=== PATIENT | female | born 1940 | race Caucasian/White ===

== ENCOUNTER 2018-05-16 15:45 | Observation (INO) ==
[2018-05-16] MEDS ORDERED: Famotidine 20 MG/2 ML VIAL IVP ONE (17:29)
[2018-05-16] MEDS ORDERED: methylPREDNISolone 125 MG/2 ML VIAL IVP ONE (17:29)
--- NOTE | 2018-05-16 17:33 | Emergency Department Note ---
Disposition Clinical Impression: Rash Allergic reaction Qualifiers: Encounter type: initial encounter Qualified Code(s): T78.40XA - Allergy, unspecified, initial encounter Disposition: Admitted As Inpatient Condition: Fair Referrals: Jamila Betts CNP [Primary Care Provider] - Forms: ED Satisfaction Letter Time of Disposition: 18:07 Allergic Reaction HPI - General Chief complaint: ED Allergic Reaction Stated complaint: "red all over, reaction to diflucan 150mg" Time Seen by Provider: 05/16/18 17:21 Source: patient, family Mode of arrival: wheelchair Limitations: physical limitation Nursing Notes Reviewed: Yes Vital Signs Reviewed: Yes - History of Present Illness HPI Narrative: The patient is a limited historian. She was sent from the wound care clinic due to a rash. The patient is uncertain how long the rash was present. She notes it is mildly pruritic. Not painful. The only known new exposures are to Diflucan and she is uncertain how may doses she received. She is getting treatment the wound care clinic for chronic lower extremity lesions Pt Subjective Complaint: allergic reaction Onset (ago): hour(s) Exposure: medication Symptoms: Reports: rash, itching Severity: severe Treatment prior to arrival: none Previous Allergic Reaction History: none - Related Data Home Medications Medication Instructions Recorded Confirmed Adult Multivitamin Gummies 08/11/15 08/11/15 Aspirin 81 mg PO DAILY 08/11/15 08/11/15 Lasix 40 mg PO BID 08/11/15 08/11/15 Moexipril-Hctz 7.5-12.5 mg Tab 7.5 mg PO DAILY 08/11/15 08/11/15 Neurontin 300 mg PO BID 08/11/15 08/11/15 Potassium Chloride 20 meq PO DAILY 08/11/15 08/11/15 Simvastatin 10 mg PO DAILY 08/11/15 08/11/15 Synthroid 0.175 mg PO DAILY 08/11/15 08/11/15 Ciprofloxacin HCl [Cipro] 500 mg PO BID 05/16/18 05/16/18 Allergies Allergy/AdvReac Type Severity Reaction Status Date / Time Sulfa (Sulfonamide Allergy Rash Verified 05/16/18 15:54 Antibiotics) All systems ED: reviewed and negative except as stated. Constitutional: Reports: as per HPI Eyes: Reports: as per HPI ENT ED: Reports: as per HPI Cardiovascular: Reports: as per HPI Respiratory: Reports: as per HPI Gastrointestinal: Reports: as per HPI Genitourinary: Reports: as per HPI Musculoskeletal: Reports: as per HPI Integumentary: Reports: rash Neurological: Reports: as per HPI Psychiatric: Reports: as per HPI Endocrine: Reports: as per HPI Hematological/Lymphatic: Reports: as per HPI Allergic/Immunologic: Reports: as per HPI Past Medical History - Past Medical History Source: patient Medical history: Reports: hypertension, thyroid disease Surgical history: Reports: cancer surgery Psychiatric history: Reports: anxiety, depression - Social History Smoking Status: Unknown if ever smoked Alcohol use: Reports: none Drug use: Reports: unknown Physical Exam - General Limitations: physical limitation (Required 2 person assistance to transfer from the wheelchair to the examination stretcher) General appearance: alert - Head Head exam: atraumatic - Eye Eye exam: Present: normal appearance - ENT ENT exam: normal exam, other (No stridor or oropharyngeal swelling) - Neck Neck exam: Present: normal inspection, full ROM - Chest Chest inspection: Present: normal inspection, symmetric chest wall rise - Respiratory Respiratory exam: Present: normal lung sounds bilaterally - Cardiovascular Cardiovascular exam: Present: irregular rhythm, normal heart sounds - Abdominal Exam Abdominal exam: Present: soft, other (Obese) - Rectal Exam Rectal exam: Present: deferred - Extremities Exam Extremities exam: Present: other (Bilateral lower extremities with circumferential wraps. Postop shoes in place) - Neurological Exam Neurological exam: Present: alert, oriented X3, CN II-XII intact - Psychiatric Psychiatric exam: Present: normal affect, normal mood - Skin Skin exam: Present: warm, dry, other (Diffuse slightly raised erythematous lesions to her inframamillary regions, torso, back. No wheals. Lesions cross the midline and are not in a dermatomal distribution. No evidence of cellulitis ) Course Course Narrative: Patient presents with a diffuse erythematous rash. I am uncertain whether or not this represents a medication reaction and if so to what medication. I will treat symptomatically with antihistamines, H2 blockers and a dose of Solu- Medrol. - Reevaluation(s) Reevaluation #1: Etiology of rash in completely certain. This may represent a fungal dermatitis or an allergic medication reaction. Given the extensive nature of the rash I will request admission to the medicine team for further observation and evaluation Vital Signs Temperature 98.0 F 05/16/18 15:51 Pulse Rate 92 05/16/18 15:51 Respiratory Rate 18 05/16/18 15:51 Blood Pressure 115/71 05/16/18 15:51 O2 Sat by Pulse Oximetry 91 05/16/18 15:51 Temperature 98.0 F 05/16/18 17:28 Pulse Rate 81 05/16/18 17:32 Respiratory Rate 24 05/16/18 17:32 Blood Pressure 133/57 05/16/18 17:32 O2 Sat by Pulse Oximetry 98 05/16/18 17:32 Oxygen Delivery Oxygen Delivery Room Air Allergic Reaction - Lab Data Lab results reviewed: Yes I reviewed the patient's lab results. Result diagrams: 05/16/18 17:29 Lab Results 05/16/18 05/16/18 Range/Units 17:29 17:29 WBC 14.4 H (4.3-11.1) K/mcL RBC 4.00 (3.82-4.97) M/mcL Hgb 12.7 (11.5-15.4) g/dL Hct 39.1 (35.3-44.9) % MCV 97.8 (83.0-100.0) fL MCH 31.8 (28.0-33.3) pg MCHC 32.5 (31.6-35.5) g/dL RDW 12.6 (11.5-14.5) % Plt Count 215 (140-400) K/mcL MPV 10.1 (9.4-12.4) fL Immature Gran % 0.3 (0-4) % Seg Neutrophils % 81.5 % Lymphocytes % 8.6 % Monocytes % 8.3 % Eosinophils % 1.2 % Basophils % 0.1 % Neutrophils # 11.7 H (1.6-8.9) K/mcL Lymphocytes # 1.2 (0.6-4.6) K/mcL Monocytes # 1.2 (0.0-1.3) K/mcL Eosinophils # 0.2 (0.0-0.6) K/mcL Basophils # 0.0 (0.0-0.2) K/mcL ESR 107 H (0-15) mm/hr
[2018-05-16 17:54] LABS: Basophils % 0.1 %; Eosinophils # 0.2 K/mcL (0.0-0.6); Eosinophils % 1.2 %; Hematocrit 39.1 % (35.3-44.9); Hemoglobin 12.7 g/dL (11.5-15.4); Immature Granulocytes % 0.3 % (0-4); Lymphocytes # 1.2 K/mcL (0.6-4.6); Lymphocytes % 8.6 %; Mean Corpuscular HGB Conc 32.5 g/dL (31.6-35.5); Mean Corpuscular Hemoglobin 31.8 pg (28.0-33.3); Mean Corpuscular Volume 97.8 fL (83.0-100.0); Mean Platelet Volume 10.1 fL (9.4-12.4); Monocytes # 1.2 K/mcL (0.0-1.3); Monocytes % 8.3 %; Neutrophils # 11.7 K/mcL (1.6-8.9); Platelet Count 215 K/mcL (140-400); Red Cell Distribution Width 12.6 % (11.5-14.5); Segmented Neutrophils % 81.5 %
[2018-05-16 18:14] LABS: Alanine Aminotransferase 113 Units/L (7-52); Albumin 3.4 g/dL (3.5-5.7); Albumin/Globulin Ratio 0.8 (1.1-2.2); Alkaline Phosphatase 140 Units/L (34-104); Aspartate Amino Transferase 80 Units/L (13-39); BUN/Creatinine Ratio 25 (6-26); Bilirubin,Total 0.6 mg/dL (0.3-1.0); Blood Urea Nitrogen 26 mg/dL (8-23); C-Reactive Protein 55 mg/L (Less than 10); Calcium 8.6 mg/dL (8.6-10.3); Carbon Dioxide 29 mEq/L (23-29); Chloride 99 mEq/L (98-107); Globulin 4.1 g/dL (2.4-3.5); Glucose 123 mg/dL (70-105); Osmolality,Calculated 288 (280-300); Potassium 4.3 mEq/L (3.5-5.1); Sodium 136 mEq/L (136-145); Total Protein 7.5 g/dL (6.4-8.9); eGFR For African Americans > 60 (> 60); eGFR For Non-African Americans 52 (> 60)
--- NOTE | 2018-05-16 19:48 | Internal Med History&Physical ---
Date of Encounter: 05/16/18 Time of Encounter: 22:10 Internal Medicine - H&P: HPI Chief complaint: rash Admitted From: Home Plans for Post Hospital Care: Home History of present illness: Ms. Meyers is a 77 year old female with PMHx as below presented from the wound clinic due to rash. Unsure of duration or onset but she states that they are itch. No pain. The only new meds that she has had recently was diflucan but she is not sure of the timing of diflucan ingestion and onset of rash. She has chronic R ankle ulcers and LE venous stasis ulcers which are being taken care by the wound clinic. Patient states that she has been noticing increasing drainage from both ulcers. No pain or worsening swelling. No bone exposure to her best knowledge. Denies fever but intermittent chills. She had them cleaned today and is scheduled for dressing change on Tuesday. She was afebrile, hemodynamically stable on presentation. Her initial investigation showed leukocytosis, elevated CRP and ESR, Cr 1.03 (baseline around 0.88), and mildly deranged transaminases/ALP. She is admitted to observation for further management. Past Med Surg Social Fam HX - Past Medical History Medical history: hyperlipidemia, hypertension, thyroid disease Additional medical history: OBESITY, neuropathy, chronic LE edema Psychiatric history: anxiety, depression - Past Surgical History Surgical History: cancer surgery Additional surgical history: skin cancer surgery in 1997. - Social History Smoking Status: Unknown if ever smoked Smokeless Tobacco Status: No Alcohol use: none Drug use: unknown - Family History Mother Adopted: No Family Member Ethnicity: Non- Living Status: Hx Family Cardiac Disorders: Yes Hx Family Respiratory Disorders: No Hx Family Cancer: Yes Hx Family GI Disorders: No Hx Family Endocrine Disorder: No Hx Family Neuromuscular Disorders: No Hx Family Neurologic Disorders: No Hx Family HEENT Disorders: No Hx Family Autoimmune Disorders: No Father Adopted: No Family Member Ethnicity: Non- Living Status: Hx Family Cardiac Disorders: Yes Hx Family Respiratory Disorders: No Hx Family Cancer: No Hx Family GI Disorders: No Hx Family Endocrine Disorder: No Hx Family Neuromuscular Disorders: No Hx Family Neurologic Disorders: No Hx Family HEENT Disorders: No Hx Family Autoimmune Disorders: No Internal Medicine - H&P: Meds Aspirin Enteric Coated [Aspirin EC] 81 mg PO DAILY 05/16/18 [History] Cholecalciferol (D-3) [Vitamin D] 5,000 unit PO DAILY 05/16/18 [History] Furosemide [Lasix] 40 mg PO QPM 05/16/18 [History] Furosemide [Lasix] 80 mg PO QAM 05/16/18 [History] Gabapentin [Neurontin] 300 mg PO BID 05/16/18 [History] Levothyroxine [Synthroid] 150 mcg PO DAILY 05/16/18 [History] Moexipril HCl 7.5 mg PO DAILY 05/16/18 [History] Multivitamin [One Daily Multivitamin] 1 tab PO DAILY 05/16/18 [History] Potassium Chloride [Klor-Con 10] 10 meq PO BID 05/16/18 [History] Simvastatin [Zocor] 20 mg PO HS 05/16/18 [History] 3 Allergy/AdvReac Type Severity Reaction Status Date / Time Sulfa (Sulfonamide Allergy Rash Verified 05/16/18 18:35 Antibiotics) All Systems PM: A 10-system review of systems was performed and is negative for pertinent findings except as documented above in the HPI. - Constitutional Vitals: Temp Pulse Resp BP Pulse Ox 98.0 F 81 22 129/62 98 05/16/18 17:28 05/16/18 17:32 05/16/18 18:58 05/16/18 18:58 05/16/18 17:32 Exam: General: Alert and oriented HEENT:EOM, pupils equal, round, and reactive. Cardiovascular:Normal S1 & S2, no murmurs or gallops. No JVD. Pulse regular. Lungs:Normal breath sounds, no wheezes or crackles. Abdomen:Soft, non-tender, no rigidity. Extremities:Both LE wrapped in dressing, dry and clean, R leg slightly warmer than the left. No tenderness or crepitus on palpation. Neurological:Normal cognition and motor skills. Skin: Diffuse, confluent erythematous lesions mainly on the trunk. Pulses:Carotid and radial pulses normal +2. Rest of the physical exam is non-contributory Internal Med - H&P Results - Labs CBC & Chem 7: 05/16/18 17:29 05/16/18 17:29 - Assessment and plan (1) Rash Current Visit: Yes Status: Acute Assessment and plan: ?drug reaction to diflucan Given IV solumedrol, benadryl in the ED Benadryl PRN Monitor (2) Pressure ulcer of right ankle, unstageable Current Visit: No Status: Acute Assessment and plan: According to the patient and wound care clinic notes, it appears that at least her R ankle wounds are getting larger with large amount of drainage Patient now has new leukocytosis with elevated inflammatory markers ? osteomyelitis No evidence of cellulitis, will hold off on abx till XR R foot and ankle is done. IF negative, may need to consider CT or MRI to rule out OM Dressing change due on Tuesday (3) Acute kidney injury Current Visit: Yes Status: Acute Assessment and plan: very mild elevation of Cr (1.03 today) from baseline of 0.88 1L NS today and monitor Cr hold off on lasix and moexipril for now (4) Elevated liver enzymes Current Visit: Yes Status: Acute Assessment and plan: Was normal previously, ?fatty liver related Has concerning R ankle wounds, will check CPK which can also cause elevated AST/ ALT repeat CMP in the AM (5) Hypertension Current Visit: Yes Status: Chronic Assessment and plan: ?mild LUBNA hold off on moexipril for now Qualifiers: Hypertension type: essential hypertension Qualified Code(s): I10 - Essential (primary) hypertension (6) Hypothyroidism Current Visit: Yes Status: Chronic Assessment and plan: continue levothyroxine Qualifiers: Hypothyroidism type: unspecified Qualified Code(s): E03.9 - Hypothyroidism , unspecified - Time Spent With Patient Total time spent is greater than 50% in coordination of care (as documented) at patient's floor/unit and/or counseling patient:
[2018-05-16] MEDS ORDERED: Naloxone 0.4 MG/ML INJ IVP PRN (22:19)
[2018-05-16] MEDS ORDERED: 0.9 % Sodium Chloride 1,000 ML IVC SCH (22:30)
[2018-05-16 22:53] LABS: Creatine Kinase 691 Units/L (30-223)
[2018-05-17 06:46] LABS: Basophils % 0.1 %; Hematocrit 34.8 % (35.3-44.9); Hemoglobin 11.1 g/dL (11.5-15.4); Immature Granulocytes % 0.3 % (0-4); Lymphocytes # 0.6 K/mcL (0.6-4.6); Lymphocytes % 6.2 %; Mean Corpuscular HGB Conc 31.9 g/dL (31.6-35.5); Mean Corpuscular Hemoglobin 30.7 pg (28.0-33.3); Mean Corpuscular Volume 96.4 fL (83.0-100.0); Mean Platelet Volume 10.2 fL (9.4-12.4); Monocytes # 0.2 K/mcL (0.0-1.3); Monocytes % 1.6 %; Neutrophils # 9.3 K/mcL (1.6-8.9); Platelet Count 196 K/mcL (140-400); Red Blood Count 3.61 M/mcL (3.82-4.97); Red Cell Distribution Width 12.6 % (11.5-14.5); Segmented Neutrophils % 91.8 %
[2018-05-17 07:07] LABS: Alanine Aminotransferase 79 Units/L (7-52); Albumin 2.9 g/dL (3.5-5.7); Albumin/Globulin Ratio 0.8 (1.1-2.2); Alkaline Phosphatase 109 Units/L (34-104); Aspartate Amino Transferase 45 Units/L (13-39); BUN/Creatinine Ratio 30 (6-26); Bilirubin,Total 0.4 mg/dL (0.3-1.0); Blood Urea Nitrogen 23 mg/dL (8-23); Calcium 8.3 mg/dL (8.6-10.3); Carbon Dioxide 28 mEq/L (23-29); Chloride 104 mEq/L (98-107); Globulin 3.6 g/dL (2.4-3.5); Glucose 166 mg/dL (70-105); Osmolality,Calculated 291 (280-300); Potassium 4.7 mEq/L (3.5-5.1); Sodium 137 mEq/L (136-145); Total Protein 6.5 g/dL (6.4-8.9); eGFR For African Americans > 60 (> 60); eGFR For Non-African Americans > 60 (> 60)
[2018-05-17] MEDS: Gabapentin 300 MG CAPSULE PO SCH ×2 (08:45→20:13)
[2018-05-17] MEDS: Aspirin Enteric Coated 81 MG Tablet PO SCH (08:45)
[2018-05-17] MEDS: Multivit/Ca/Min/Fe/FA 1 TAB TABLET PO SCH (08:45)
[2018-05-17] MEDS: Cholecalciferol (D-3) 1,000 UNIT TABLET PO SCH (08:45)
[2018-05-17] MEDS ORDERED: Furosemide 40 MG TABLET PO SCH ×2 (09:00→18:00)
--- NOTE | 2018-05-17 14:37 | Internal Med Progress Note ---
Date of Encounter: 05/17/18 Time of Encounter: 11:20 - Assessment and plan (1) DVT prophylaxis Current Visit: Yes Status: Acute Assessment and plan: heparin SQ (2) Acute kidney injury Current Visit: Yes Status: Acute Assessment and plan: Resolved. Renal function has returned to baseline. (3) Allergic reaction Current Visit: Yes Status: Acute Assessment and plan: Pt with diffuse red, flat rash to trunk, some yeast appearing areas under breasts. Pt states that she has had the rash for 2 months, which predates the start of Diflucan, that was suspected to cause the rash. Pt states that the rash itches and peres "sometimes". Nystatin powder under breasts, diflucan has been stopped. Benadryl IV prn itching Will monitor, may have consult dermatology if not improved. Qualifiers: Encounter type: initial encounter Qualified Code(s): T78.40XA - Allergy, unspecified, initial encounter (4) Elevated liver enzymes Current Visit: Yes Status: Acute Assessment and plan: Improving. Suspected related to fatty liver. Continue to monitor. Pt denies abdominal pain, n/v/d. (5) Pressure ulcer of right ankle, unstageable Current Visit: Yes Status: Acute Assessment and plan: Chronic wound . Pt sees wound care twice daily. Xrays unremarkable, no underlying oseous destruction to suggest osteomyelitis. Leukocytosis has resolved and pt has no fever, tachycardia, or hypotension. MOnitor labs and continue to follow with wound care for dressing changes. Ankle X-Ray 05/16/18 22:29 IMPRESSION: Limited exams due to bandage material outside the patient which obscures fine osseous and soft tissue detail. Consider repeating exams after removal of material. Suspect soft tissue irregularity/ ulceration along the great toe. No underlying osseous destruction to suggest osteomyelitis. D/ / Leonel Tirado / Leonel Tirado Interpreting Provider: Leonel Tirado Foot X-Ray 05/16/18 22:29 IMPRESSION: Limited exams due to bandage material outside the patient which obscures fine osseous and soft tissue detail. Consider repeating exams after removal of material. Suspect soft tissue irregularity/ ulceration along the great toe. No underlying osseous destruction to suggest osteomyelitis. D/ / Leonel Tirado / Leonel Tirado Interpreting Provider: Leonel Tirado (6) Rash Current Visit: Yes Status: Acute Assessment and plan: Pt with flat red rash to chest and trunk. Reports some itching and some burning. Onset approximately 2 months ago. Pt was placed on Diflucan about 1 month ago, it is thought that the rash was started by Diflucan, which has been stopped. Nystatin powder to area TID. If not improving, will consider dermatology consultation. (7) Hypertension Current Visit: Yes Status: Chronic Assessment and plan: Well controlled. Continue home medications. Qualifiers: Hypertension type: essential hypertension Qualified Code(s): I10 - Essential (primary) hypertension (8) Hypothyroidism Current Visit: Yes Status: Chronic Assessment and plan: Chronic. Continue home medications. Qualifiers: Hypothyroidism type: unspecified Qualified Code(s): E03.9 - Hypothyroidism , unspecified - Time Spent With Patient Total time spent is greater than 50% in coordination of care (as documented) at patient's floor/unit and/or counseling patient: less than 15 minutes - Subjective Interval history: Patient was seen and assessed at bedside at 11:20 AM. Patient reports that she is having her rash for approximately 2 months, today she reports that it is actually longer than that time that she has been taking the drug that is believed to have caused the rash. Patient states that the rash sometimes itches sometimes peres. Patient reports that she currently sees wound care 2 times a week for her right ankle with. Pt states that she is feeling better and denies nausea, vomiting, diarrhea, fever, chills, chest pain, SOB. - Constitutional Vitals: Temp Pulse Resp BP Pulse Ox 98.0 F 63 16 107/52 93 05/17/18 11:26 05/17/18 11:26 05/17/18 11:26 05/17/18 11:26 05/17/18 11:26 General appearance: Present: cooperative, morbidly obese, pleasant, no acute distress, answers questions appropriately - Head Head exam: Present: atraumatic, normal inspection, normocephalic - Eye Eye exam: Present: normal appearance, conjuntiva pink, sclera anicteric - Neck Neck exam general surgery: Present: supple, trachea midline. Absent: lymphadenopathy, tenderness - Respiratory Respiratory exam: Present: CTAB. Absent: accessory muscle use, chest wall tenderness, rales, respiratory distress, rhonchi, wheezes - Cardiovascular Cardiovascular exam: Present: RRR, +S1, +S2. Absent: diastolic murmur, gallop, rubs, systolic murmur - GI/Abdominal GI/Abdominal exam: Present: normal bowel sounds, soft. Absent: distended, hepatomegaly, tenderness - Extremities Exam Extremities exam: Present: normal capillary refill, normal inspection, warm, radial pulses palpable and symmetrical. Absent: calf tenderness, cyanotic, pedal edema, tenderness - Neurological Exam Neurological exam: Present: alert, oriented X3, no focal deficits. Absent: facial droop, speech deficit - Skin Skin exam: Present: dry, intact, normal color, warm. Absent: rash Internal Medicine: Result - Labs CBC & Chem 7: 05/17/18 06:15 05/17/18 06:15 Labs: Short CBC 05/17/18 Range/Units 06:15 WBC 10.1 (4.3-11.1) K/mcL Hgb 11.1 L D (11.5-15.4) g/dL Hct 34.8 L (35.3-44.9) % Plt Count 196 (140-400) K/mcL Neutrophils # 9.3 H (1.6-8.9) K/mcL BMP 05/17/18 06:15 Sodium 137 Potassium 4.7 Chloride 104 Carbon Dioxide 28 BUN 23 Creatinine 0.77 Glucose 166 H Calcium 8.3 L Liver Function 05/17/18 Range/Units 06:15 Total Bilirubin 0.4 (0.3-1.0) mg/dL AST 45 H (13-39) Units/L ALT 79 H (7-52) Units/L Alkaline Phosphatase 109 H (34-104) Units/L Albumin 2.9 L (3.5-5.7) g/dL - Impressions Impressions Ankle X-Ray 05/16/18 22:29 IMPRESSION: Limited exams due to bandage material outside the patient which obscures fine osseous and soft tissue detail. Consider repeating exams after removal of material. Suspect soft tissue irregularity/ ulceration along the great toe. No underlying osseous destruction to suggest osteomyelitis. D/ / Leonel Tirado / Leonel Tirado Interpreting Provider: Leonel Tirado Foot X-Ray 05/16/18 22:29 IMPRESSION: Limited exams due to bandage material outside the patient which obscures fine osseous and soft tissue detail. Consider repeating exams after removal of material. Suspect soft tissue irregularity/ ulceration along the great toe. No underlying osseous destruction to suggest osteomyelitis. D/ / Leonel Tirado / Leonel Tirado Interpreting Provider: Leonel Tirado Consult Discharge Plan - Plan Referrals: Jamila Betts HAT CHECKER [Primary Care Provider] -
[2018-05-17] MEDS: Nystatin POWDER 30 GM BOTTLE TP SCH ×2 (15:22→20:13)
[2018-05-17] MEDS: *HR* Heparin 5,000 UNIT/ML VIAL SQ SCH (17:16)
[2018-05-18 04:13] LABS: Basophils % 0.2 %; Eosinophils # 0.1 K/mcL (0.0-0.6); Eosinophils % 0.6 %; Hematocrit 32.5 % (35.3-44.9); Hemoglobin 10.1 g/dL (11.5-15.4); Immature Granulocytes % 0.4 % (0-4); Lymphocytes % 9.4 %; Mean Corpuscular HGB Conc 31.1 g/dL (31.6-35.5); Mean Corpuscular Hemoglobin 30.6 pg (28.0-33.3); Mean Corpuscular Volume 98.5 fL (83.0-100.0); Mean Platelet Volume 10.3 fL (9.4-12.4); Monocytes # 1.1 K/mcL (0.0-1.3); Monocytes % 10.2 %; Neutrophils # 8.8 K/mcL (1.6-8.9); Platelet Count 203 K/mcL (140-400); Red Cell Distribution Width 12.7 % (11.5-14.5); Segmented Neutrophils % 79.2 %
[2018-05-18 04:32] LABS: BUN/Creatinine Ratio 37 (6-26); Blood Urea Nitrogen 32 mg/dL (8-23); Calcium 8.3 mg/dL (8.6-10.3); Carbon Dioxide 28 mEq/L (23-29); Chloride 103 mEq/L (98-107); Glucose 111 mg/dL (70-105); Osmolality,Calculated 292 (280-300); Potassium 4.6 mEq/L (3.5-5.1); Sodium 137 mEq/L (136-145); eGFR For African Americans > 60 (> 60); eGFR For Non-African Americans > 60 (> 60)
[2018-05-18] MEDS: *HR* Heparin 5,000 UNIT/ML VIAL SQ SCH ×2 (06:04→18:07)
[2018-05-18] MEDS: Nystatin POWDER 30 GM BOTTLE TP SCH ×3 (10:26→20:06)
[2018-05-18] MEDS: Aspirin Enteric Coated 81 MG Tablet PO SCH (10:26)
[2018-05-18] MEDS: Gabapentin 300 MG CAPSULE PO SCH ×2 (10:26→20:06)
[2018-05-18] MEDS: Cholecalciferol (D-3) 1,000 UNIT TABLET PO SCH (10:26)
[2018-05-18] MEDS: Multivit/Ca/Min/Fe/FA 1 TAB TABLET PO SCH (10:26)
[2018-05-18] MEDS: 0.9 % Sodium Chloride 1,000 ML IVC SCH (12:45)
[2018-05-18 14:06] LABS: Alanine Aminotransferase 57 Units/L (7-52); Aspartate Amino Transferase 30 Units/L (13-39); Creatine Kinase 117 Units/L (30-223)
--- NOTE | 2018-05-18 17:34 | Internal Med Progress Note ---
Date of Encounter: 05/18/18 Time of Encounter: 10:50 - Assessment and plan (1) DVT prophylaxis Current Visit: Yes Status: Acute Assessment and plan: heparin SQ BID (2) Acute kidney injury Current Visit: Yes Status: Acute Assessment and plan: Resolved. (3) Allergic reaction Current Visit: Yes Status: Suspected Assessment and plan: Suspected non-allergic reaction, suspected actually increased. Rash is almost gone after 2 applications of nystatin powder. Patient reports that itching and burning has resolved. Patient will be sent home with nystatin. Qualifiers: Encounter type: initial encounter Qualified Code(s): T78.40XA - Allergy, unspecified, initial encounter (4) Elevated liver enzymes Current Visit: Yes Status: Acute Assessment and plan: AST has returned to normal, ALTs mildly mildly elevated at 57. Unclear etiology for elevation on admission and then elevated CK/CRP. Patient denies abdominal pain. (5) Pressure ulcer of right ankle, unstageable Current Visit: Yes Status: Acute Assessment and plan: Chronic wound . Xrays unremarkable, no underlying oseous destruction to suggest osteomyelitis. Leukocytosis has resolved and pt has no fever, tachycardia, or hypotension. MOnitor labs and continue to follow with wound care for dressing changes. Ankle X-Ray 05/16/18 22:29 IMPRESSION: Limited exams due to bandage material outside the patient which obscures fine osseous and soft tissue detail. Consider repeating exams after removal of material. Suspect soft tissue irregularity/ ulceration along the great toe. No underlying osseous destruction to suggest osteomyelitis. D/ / Leonel Tirado / Leonel Tirado Interpreting Provider: Leonel Tirado Foot X-Ray 05/16/18 22:29 IMPRESSION: Limited exams due to bandage material outside the patient which obscures fine osseous and soft tissue detail. Consider repeating exams after removal of material. Suspect soft tissue irregularity/ ulceration along the great toe. No underlying osseous destruction to suggest osteomyelitis. D/ / Leonel Tirado / Leoenl Tirado Interpreting Provider: Leonel Tirado (6) Rash Current Visit: Yes Status: Resolved Assessment and plan: Rash has almost completely resolved with nystatin. Nystatin powder to area TID. (7) Hypertension Current Visit: Yes Status: Chronic Assessment and plan: Well controlled. Stable. Continue home medications. Qualifiers: Hypertension type: essential hypertension Qualified Code(s): I10 - Essential (primary) hypertension (8) Hypothyroidism Current Visit: Yes Status: Chronic Assessment and plan: Chronic. Continue home medications. Qualifiers: Hypothyroidism type: unspecified Qualified Code(s): E03.9 - Hypothyroidism , unspecified (9) Sacral decubitus ulcer Current Visit: Yes Status: Acute Assessment and plan: Patient with sacral decubitus ulcers present prior to admission. Patient refused to allow nursing to evaluate them today. Wound care has been consulted, evaluation pending. I appreciate their recommendations. Qualifiers: Pressure ulcer stage: unspecified pressure ulcer stage Qualified Code(s): L89.159 - Pressure ulcer of sacral region, unspecified stage - Time Spent With Patient Total time spent is greater than 50% in coordination of care (as documented) at patient's floor/unit and/or counseling patient: less than 15 minutes - Subjective Interval history: Patient was seen and assessed at bedside at 1050 AM. Pt states that she is feeling better and denies nausea, vomiting, diarrhea, fever, chills, chest pain , SOB. Pt states that she lives at home with her daughter and would like to discuss home health, pt also will need wound care to evaluate her sacral/coccyx ulcers that she has had since prior to arrival. Pt will stay overnight again to wait for wound care and PT/OT. - Constitutional Vitals: Temp Pulse Resp BP Pulse Ox 98.5 F 84 18 104/57 98 05/18/18 15:35 05/18/18 15:35 05/18/18 15:35 05/18/18 15:35 05/18/18 15:35 General appearance: Present: cooperative, morbidly obese, pleasant, no acute distress, answers questions appropriately - Head Head exam: Present: atraumatic, normal inspection, normocephalic - Eye Eye exam: Present: normal appearance, conjuntiva pink, sclera anicteric - Neck Neck exam general surgery: Present: supple, trachea midline. Absent: lymphadenopathy, tenderness - Respiratory Respiratory exam: Present: CTAB. Absent: accessory muscle use, chest wall tenderness, rales, respiratory distress, rhonchi, wheezes - Cardiovascular Cardiovascular exam: Present: RRR, +S1, +S2. Absent: diastolic murmur, gallop, rubs, systolic murmur - GI/Abdominal GI/Abdominal exam: Present: normal bowel sounds, soft. Absent: distended, hepatomegaly, tenderness - Extremities Exam Extremities exam: Present: normal capillary refill, normal inspection, warm, radial pulses palpable and symmetrical. Absent: calf tenderness, cyanotic, pedal edema, tenderness - Neurological Exam Neurological exam: Present: alert, oriented X3, no focal deficits. Absent: facial droop, speech deficit - Skin Skin exam: Present: dry, intact, normal color, warm. Absent: rash Internal Medicine: Result - Labs CBC & Chem 7: 05/18/18 03:36 05/18/18 03:36 Labs: Short CBC 05/18/18 Range/Units 03:36 WBC 11.1 (4.3-11.1) K/mcL Hgb 10.1 L (11.5-15.4) g/dL Hct 32.5 L (35.3-44.9) % Plt Count 203 (140-400) K/mcL Neutrophils # 8.8 (1.6-8.9) K/mcL BMP 05/18/18 03:36 Sodium 137 Potassium 4.6 Chloride 103 Carbon Dioxide 28 BUN 32 H Creatinine 0.87 Glucose 111 H Calcium 8.3 L Liver Function 05/18/18 Range/Units 13:18 AST 30 (13-39) Units/L ALT 57 H (7-52) Units/L Consult Discharge Plan - Plan Referrals: Jamila Betts CNP [Primary Care Provider] - 05/25/18 4:00 pm
[2018-05-19] MEDS: 0.9 % Sodium Chloride 1,000 ML IVC SCH (02:13)
[2018-05-19] MEDS: *HR* Heparin 5,000 UNIT/ML VIAL SQ SCH (05:58)
[2018-05-19] MEDS: Gabapentin 300 MG CAPSULE PO SCH (08:13)
[2018-05-19] MEDS: Multivit/Ca/Min/Fe/FA 1 TAB TABLET PO SCH (08:13)
[2018-05-19] MEDS: Cholecalciferol (D-3) 1,000 UNIT TABLET PO SCH (08:14)
[2018-05-19] MEDS: Aspirin Enteric Coated 81 MG Tablet PO SCH (08:14)
[2018-05-19] MEDS: Nystatin POWDER 30 GM BOTTLE TP SCH (08:14)
--- NOTE | 2018-05-19 11:00 | Discharge Summary ---
- NOTES TO OUTPATIENT PROVIDER Notes to Outpatient Provider: Continue wound care evaluations to coccys and ankle Date of Encounter: 05/19/18 Time of Encounter: 09:40 - Discharge Diagnosis (1) DVT prophylaxis Priority: Secondary Status: Acute Assessment and Plan: heparin SQ BID. Pt up to chair today (2) Acute kidney injury Priority: Secondary Status: Resolved (3) Allergic reaction Priority: Secondary Status: Suspected Assessment and Plan: Suspected allergic reaction, suspect it was actually yeast. Rash is significantly improved with addition of nystatin powder. Patient reports that itching and burning has resolved. Patient will be sent home with nystatin. Qualifiers: Encounter type: initial encounter Qualified Code(s): T78.40XA - Allergy, unspecified, initial encounter (4) Elevated liver enzymes Priority: Secondary Status: Resolved Assessment and Plan: Resolved. AST has returned to normal, ALTs mildly mildly elevated at 57. Unclear etiology for elevation on admission and then elevated CK/CRP. Patient denies abdominal pain. (5) Pressure ulcer of right ankle, unstageable Priority: Secondary Status: Acute Assessment and Plan: Chronic wound . Xrays unremarkable, no underlying oseous destruction to suggest osteomyelitis. Leukocytosis has resolved and pt has no fever, tachycardia, or hypotension. Continue current wound care visits and treatment after discharge. Ankle X-Ray 05/16/18 22:29 IMPRESSION: Limited exams due to bandage material outside the patient which obscures fine osseous and soft tissue detail. Consider repeating exams after removal of material. Suspect soft tissue irregularity/ ulceration along the great toe. No underlying osseous destruction to suggest osteomyelitis. D/ / Leonel Tirado / Leonel Tirado Interpreting Provider: Leonel Tirado Foot X-Ray 05/16/18 22:29 IMPRESSION: Limited exams due to bandage material outside the patient which obscures fine osseous and soft tissue detail. Consider repeating exams after removal of material. Suspect soft tissue irregularity/ ulceration along the great toe. No underlying osseous destruction to suggest osteomyelitis. D/ / Leonel Tirado / Leonel Tirado Interpreting Provider: Leonel Tirado (6) Rash Priority: Secondary Status: Resolved Assessment and Plan: Resolved. Continue nystatin powder and increase bathing at [facility]. (7) Hypertension Priority: Secondary Status: Chronic Assessment and Plan: Chronic. Stable. Continue home medications. Qualifiers: Hypertension type: essential hypertension Qualified Code(s): I10 - Essential (primary) hypertension (8) Hypothyroidism Priority: Secondary Status: Chronic Assessment and Plan: Chronic. Continue home medications. Qualifiers: Hypothyroidism type: unspecified Qualified Code(s): E03.9 - Hypothyroidism , unspecified (9) Decubital ulcer Priority: Secondary Status: Chronic Assessment and Plan: Pt with pressure ulcer prior to admission, pt has refused to allow nursing to evalate it. Wound care will continue at [facility], pt sees wound care clinic now. Qualifiers: Pressure injury location: sacral region Pressure injury stage: unspecified pressure injury stage Qualified Code(s): L89.159 - Pressure ulcer of sacral region, unspecified stage Hospital course: Ms. Meyers is a 77 year old female with past medical history of chronic venous stasis ulcers, chronic pressure ulcer right ankle, hypertension, hypothyroidism, morbid obesity. Patient presented to the emergency department from wound care clinic with rash. Patient reports that she has had the rash for several months, was placed on Diflucan without any resolution. She appears to be a poor historian. She has chronic right ankle ulcers and lower extremity venous stasis ulcers which she was being seen for at the wound care clinic. The patient was admitted with mild leukocytosis, elevated CRP and ESR, mildly elevated transaminases, and a mild LUBNA. Unclear etiology of the elevation of transaminases, they have returned to baseline. X-rays revealed no signs of osseous destruction to suggest osteomyelitis and her leukocytosis resolved, as well. AK I resolved with IV fluid hydration. Diflucan was stopped, nystatin powder was ordered, and rash has resolved. Patient has pre-existing ulcers to sacrum/coccyx that she has refused to allow nursing to evaluate while she has been here. Patient is to continue wound care at the [facility] as well as continue physical therapy. Patient is a resident at [facility] and will be discharged there in stable condition. Discharge discussed with: patient, family, nurse - Time Spent with Patient Total time spent providing and/or coordinating discharge services: Less than 30 minutes - Discharge Medications Home Medications: Aspirin Enteric Coated [Aspirin EC] 81 mg PO DAILY 05/16/18 [History] Cholecalciferol (D-3) [Vitamin D] 5,000 unit PO DAILY 05/16/18 [History] Furosemide [Lasix] 40 mg PO QPM 05/16/18 [History] Furosemide [Lasix] 80 mg PO QAM 05/16/18 [History] Gabapentin [Neurontin] 300 mg PO BID 05/16/18 [History] Levothyroxine [Synthroid] 150 mcg PO DAILY 05/16/18 [History] Moexipril HCl 7.5 mg PO DAILY 05/16/18 [History] Multivitamin [One Daily Multivitamin] 1 tab PO DAILY 05/16/18 [History] Potassium Chloride [Klor-Con 10] 10 meq PO BID 05/16/18 [History] Simvastatin [Zocor] 20 mg PO HS 05/16/18 [History] DiphenhydraMINE [Benadryl] 25 mg PO Q6HR PRN capsule 05/19/18 [Rx] Nystatin POWDER [Nystop] 1 appl TP TID bottle 05/19/18 [Rx] Allergies/Adverse Reactions: 3 Allergy/AdvReac Type Severity Reaction Status Date / Time Sulfa (Sulfonamide Allergy Rash Verified 05/16/18 18:35 Antibiotics) Date of admission: 05/16/18 18:39 Primary care physician: Jamila Betts CNP Consults: 05/18/18 10:01 Consult to Wound Care [CONS] Routine Reason for Consult: Pt has multiple wounds to bottom and venoud ulcers to BLE Call Completed: No 05/18/18 11:12 Consult to Physical Therapy [CONS] Routine Comment: Evaluate, develop and implement POC Reason for Consult: Discharge planning Does patient have active BEDREST order?: No Is patient medically & hemodynamically stable?: Yes Patient assessed for mobility or mobilized this visit?: No 05/18/18 11:13 Consult to Occupational Therapy [CONS] Routine Comment: Evaluate, develop and implement POC Reason for Consult: Discharge planning Does patient have active BEDREST order?: No Is patient medically & hemodynamically stable?: Yes Patient assessed for mobility or mobilized this visit?: No Consult to Material Requirements Planning Manager [CONS] Routine Reason for SW Consult: discharge planning, from [facility] Discharging clinician: Josiane Guerra Anticipated date of discharge: 05/19/18 - Constitutional Vitals: Temp Pulse Resp BP Pulse Ox 97.6 F 60 17 105/68 96 05/19/18 07:27 05/19/18 07:27 05/19/18 07:27 05/19/18 07:27 05/19/18 07:27 General appearance: Present: cooperative, morbidly obese, pleasant, no acute distress, answers questions appropriately - Head Head exam: Present: atraumatic, normal inspection, normocephalic - Eye Eye exam: Present: conjuntiva pink, sclera anicteric - Neck Neck exam general surgery: Present: supple, trachea midline. Absent: lymphadenopathy, tenderness - Respiratory Respiratory exam: Present: CTAB. Absent: accessory muscle use, chest wall tenderness, rales, rhonchi, wheezes - Cardiovascular Cardiovascular exam: Present: RRR, +S1, +S2. Absent: diastolic murmur, gallop, rubs, systolic murmur - GI/Abdominal GI/Abdominal exam: Present: normal bowel sounds, soft, no peritoneal signs. Absent: distended, hepatomegaly, tenderness - Extremities Exam Extremities exam: Present: normal capillary refill, normal inspection, warm, radial pulses palpable and symmetrical. Absent: calf tenderness, cyanotic, pedal edema, tenderness - Neurological Exam Neurological exam: Present: alert, oriented X3, no focal deficits. Absent: altered, facial droop, speech deficit - Skin Skin exam: Present: dry, intact, normal color, warm. Absent: rash - Patient Status Disposition: Transfer SNF Condition: Good Functional capacity at discharge: wheelchair bound Overall status at discharge: patient is progressing back to baseline - Discharge Instructions Follow Up With: Jamila Betts CNP [Primary Care Provider] - 05/25/18 4:00 pm - Diet and Activity Activity: as per physical therapy Diet: advance to your usual diet
[2018-05-19 11:56] VITALS: BP 103/74
--- NOTE | 2018-05-19 12:12 | Physician Discharge Referral ---
ExtendedCare Referral Info Transfer To: [facility] Provider in Charge after Transfer: PCP Institutional Level of Care: Skilled - Diagnosis (1) DVT prophylaxis Priority: Secondary Status: Acute (2) Acute kidney injury Priority: Secondary Status: Resolved (3) Allergic reaction Priority: Primary Status: Suspected (4) Elevated liver enzymes Priority: Secondary Status: Resolved (5) Pressure ulcer of right ankle, unstageable Priority: Secondary Status: Acute (6) Rash Priority: Secondary Status: Resolved (7) Hypertension Priority: Secondary Status: Chronic (8) Hypothyroidism Priority: Secondary Status: Chronic (9) Decubital ulcer Priority: Secondary Status: Chronic Prognosis: Good Aware of Diagnosis: Patient, Family - Transfer Medications Home Medications: Aspirin Enteric Coated [Aspirin EC] 81 mg PO DAILY 05/16/18 [History] Cholecalciferol (D-3) [Vitamin D] 5,000 unit PO DAILY 05/16/18 [History] Furosemide [Lasix] 40 mg PO QPM 05/16/18 [History] Furosemide [Lasix] 80 mg PO QAM 05/16/18 [History] Gabapentin [Neurontin] 300 mg PO BID 05/16/18 [History] Levothyroxine [Synthroid] 150 mcg PO DAILY 05/16/18 [History] Moexipril HCl 7.5 mg PO DAILY 05/16/18 [History] Multivitamin [One Daily Multivitamin] 1 tab PO DAILY 05/16/18 [History] Potassium Chloride [Klor-Con 10] 10 meq PO BID 05/16/18 [History] Simvastatin [Zocor] 20 mg PO HS 05/16/18 [History] DiphenhydraMINE [Benadryl] 25 mg PO Q6HR PRN capsule 05/19/18 [Rx] Nystatin POWDER [Nystop] 1 appl TP TID bottle 05/19/18 [Rx] Allergies/Adverse Reactions: 3 Allergy/AdvReac Type Severity Reaction Status Date / Time Sulfa (Sulfonamide Allergy Rash Verified 05/16/18 18:35 Antibiotics) - Respiratory Orders Smoking Cessation: Smoking cessation has been advised. For more information, call the [place] Tobacco Quit Line at 0-574-PRBH-NOW. - Ancillary Orders May use pressure relief devices daily prn, May consult with Dentist, Electronic Console Display Operator, Granite Polisher Apprentice PRN - Advance Directives Code Status: DNR-Arrest - Mobility Orders Chair, Ambulate - Rehabiliation Orders Rehab Potential: Fair Rehab Orders: ROM Exercises, Evaluation for Physical Therapy, Evaluation for Occupational Therapy - Treatments Skin tear care topically daily PRN per policy, May check for fecal impaction rectally daily PRN - Diet Orders Regular CERTIFICATION: I certify that the transfer of the above named patient to an Extended Care Facility is necessary for the continuing treatment of the diagnosis listed. The above information is true and accurate reflection of patient's current condition. Confidential - Redisclosure prohibited without a patient's written consent.
[2018-05-19] MEDS ORDERED: Miconazole 2% ointment 114 GM TUBE TP SCH (13:30)
== END 2018-05-19 15:16 ==
LOC: EMEROO 15:45 → 3BNU 15:45
PROVIDERS: ADMIT Student in an Organized Health Care Education/Training Program; ATTEND Student in an Organized Health Care Education/Training Program

== ENCOUNTER 2018-06-03 14:15 | Inpatient (IN) ==
--- NOTE | 2018-06-03 15:21 | Emergency Department Note ---
Disposition Clinical Impression: Non-ST elevation [place] (NSTEMI) Congestive heart failure Qualifiers: Heart failure type: unspecified Heart failure chronicity: unspecified Qualified Code(s): I50.9 - Heart failure, unspecified Cellulitis Qualifiers: Site of cellulitis: extremity Site of cellulitis of extremity: lower extremity Laterality: right Qualified Code(s): L03.115 - Cellulitis of right lower limb Disposition: Admitted As Inpatient Condition: Fair General Adult HPI - General Chief complaint: ED Shortness of Breath/Dyspnea Stated complaint: ETELVIAN, congestion Time Seen by Provider: 06/03/18 14:41 Source: patient Limitations: no limitations Nursing Notes Reviewed: Yes Vital Signs Reviewed: Yes - History of Present Illness HPI Narrative: Patient is a 77-year-old female presenting to the ED today for a several month history of cough associated with greenish sputum and shortness of breath. Patient states the shortness of breath feels like she is trying to "catch her breath" but denies chest pain, fever, chills, nausea/vomiting, syncope, or presyncopal episodes. Patient denied any other medical history or current medications with is inconsistent with her medical records. Onset (ago): month(s) (Patient says her symptoms started "months" ago was unable to give a time of initial presentation.) Pain Scale: 9 Improves with: nothing Worsens with: nothing Associated symptoms: Reports: cough (Patient says that cough is productive of greenish sputum.), shortness of breath, weakness. Denies: chest pain, fever/ chills, nausea/vomiting, syncope - Related Data Home Medications Medication Instructions Recorded Confirmed Aspirin Enteric Coated [Aspirin EC] 81 mg PO DAILY 05/16/18 05/16/18 Cholecalciferol (D-3) [Vitamin D] 5,000 unit PO DAILY 05/16/18 05/16/18 Furosemide [Lasix] 40 mg PO QPM 05/16/18 05/16/18 Furosemide [Lasix] 80 mg PO QAM 05/16/18 05/16/18 Gabapentin [Neurontin] 300 mg PO BID 05/16/18 05/16/18 Levothyroxine [Synthroid] 150 mcg PO DAILY 05/16/18 05/16/18 Moexipril HCl 7.5 mg PO DAILY 05/16/18 05/16/18 Multivitamin [One Daily 1 tab PO DAILY 05/16/18 05/16/18 Multivitamin] Potassium Chloride [Klor-Con 10] 10 meq PO BID 05/16/18 05/16/18 Simvastatin [Zocor] 20 mg PO HS 05/16/18 05/16/18 Previous Rx's Medication Instructions Recorded DiphenhydraMINE [Benadryl] 25 mg PO Q6HR PRN capsule 05/19/18 Nystatin POWDER [Nystop] 1 appl TP TID bottle 05/19/18 Allergies Allergy/AdvReac Type Severity Reaction Status Date / Time Sulfa (Sulfonamide Allergy Rash Verified 05/16/18 18:35 Antibiotics) All systems ED: reviewed and negative except as stated. Review of Systems: As Per HPI Constitutional: Reports: weakness. Denies: fever, chills Cardiovascular: Denies: chest pain, palpitations Respiratory: Reports: cough (Patient says the cough is productive of greenish sputum.), dyspnea, sputum production. Denies: hemoptysis Gastrointestinal: Denies: abdominal pain, nausea, vomiting, hematemesis, hematochezia Genitourinary: Denies: hematuria Musculoskeletal: Denies: back pain Integumentary: Reports: rash, other (RLE wound ) Neurological: Reports: weakness, paresthesias (Patient states that paresthesias are chronic.) Endocrine: Reports: fatigue Past Medical History - Past Medical History Medical history: Reports: asthma, hyperlipidemia, hypertension, thyroid disease Surgical history: Reports: cancer surgery Psychiatric history: Reports: anxiety, depression - Social History Smoking Status: Former smoker Smokeless Tobacco Status: No Alcohol use: Reports: none Drug use: Reports: none Physical Exam - General Limitations: no limitations General appearance: alert, in no apparent distress - Head Head exam: atraumatic, normocephalic - Eye Eye exam: Present: normal appearance, PERRL, EOMI. Absent: scleral icterus, conjunctival injection, nystagmus, mydriasis, periorbital swelling - ENT ENT exam: normal exam, normal oropharynx - Neck Neck exam: Present: normal inspection, trachea midline - Chest Chest inspection: Present: normal inspection, symmetric chest wall rise - Respiratory Respiratory exam: Present: other (course breath sounds in bases b/l with rales) . Absent: respiratory distress, wheezes, stridor, accessory muscle use, prolonged expiratory phase - Cardiovascular Cardiovascular exam: Present: regular rate, irregular rhythm, systolic murmur, + S1, +S2. Absent: diastolic murmur, rubs, gallop, clicks, JVD - Abdominal Exam Abdominal exam: Present: soft, Non-Tender, normal bowel sounds. Absent: distention, guarding, rebound, rigidity, organomegaly, Reza's sign, Rovsing's sign, tenderness at McBurney's Point, ascites, mass, bruit, pulsatile mass - Extremities Exam Extremities exam: Present: pedal edema, other (Patient with right lower extremity edema compared with left. Patient with large ulceration noted to the right lateral malleolar area with surrounding erythema that progresses to the tibial tuberosity. Area is warm to the touch. Lower extremity tender to palpation. No crepitus is palpated) - Expanded Lower Extremity Exam Lower leg exam: Present: tenderness, swelling, erythema. Absent: crepitus Ankle exam: Present: tenderness, erythema. Absent: crepitus - Back Exam Back exam: Present: normal inspection - Neurological Exam Neurological exam: Present: alert, oriented X3, CN II-XII intact, reflexes normal. Absent: motor sensory deficit - Psychiatric Psychiatric exam: Present: normal affect, normal mood - Skin Skin exam: Present: warm, dry, intact, normal color, other (Large ulceration noted to the right lower extremity overlying the lateral malleolus.). Absent: cyanosis, diaphoresis, pallor Course Course Narrative: Based on patient's history, review of systems, and physical exam her current presentation is concerning for exacerbation of congestive heart failure, with a differential diagnosis to exclude pneumonia and myocardial infarction. Patient will receive CBC, BMP, BNP, troponins, EKG with comparison to previous, lactic acid, and hepatic panel with x-ray imaging of the chest. - Consultations Consultation #1: Dr. Bill Murphy - Cardiology Time: 17:00 Consultation #2: Dr. Young - Medicine Time: 18:07 Vital Signs Temperature 99.5 F 06/03/18 14:17 Pulse Rate 86 06/03/18 14:17 Respiratory Rate 18 06/03/18 14:17 Blood Pressure 92/50 06/03/18 14:17 O2 Sat by Pulse Oximetry 94 06/03/18 14:17 Temperature 99.5 F 06/03/18 14:17 Pulse Rate 86 06/03/18 14:17 Respiratory Rate 18 06/03/18 14:17 Blood Pressure 92/50 06/03/18 14:17 O2 Sat by Pulse Oximetry 97 06/03/18 14:45 Oxygen Delivery Oxygen Delivery Nasal Cannula Medical Decision Making - MDM Narrative Medical decision making narrative: Based on patient's history, review of systems, and physical exam, in addition to laboratory findings and EKG, patient presentation is concerning for acute exacerbation of congestive heart failure. Patient was given 324 mg of aspirin for NSTEMI, as well as 40 mg of Lasix to manage fluid overload. Cardiology consult recommended heparin therapy for this patient and was initiated. CTA imaging was not performed due to patient's renal failure status, in addition to current heparinization for NSTEMI. Therefore CTA results would not change the management of this patient. - Medical Records Medical records reviewed: Yes I reviewed the patient's medical records. - Lab Data Lab results reviewed: Yes I reviewed the patient's lab results. Result diagrams: 06/03/18 15:55 06/03/18 15:55 Lab Results 06/03/18 06/03/18 06/03/18 Range/Units 15:55 15:55 15:55 WBC 9.5 (4.3-11.1) K/mcL RBC 3.53 L (3.82-4.97) M/mcL Hgb 10.8 L (11.5-15.4) g/dL Hct 34.7 L (35.3-44.9) % MCV 98.3 (83.0-100.0) fL MCH 30.6 (28.0-33.3) pg MCHC 31.1 L (31.6-35.5) g/dL RDW 13.2 (11.5-14.5) % Plt Count 219 (140-400) K/mcL MPV 10.4 (9.4-12.4) fL Immature Gran % 0.3 (0-4) % Seg Neutrophils % 74.4 % Lymphocytes % 11.9 % Monocytes % 11.4 % Eosinophils % 1.8 % Basophils % 0.2 % Neutrophils # 7.0 (1.6-8.9) K/mcL Lymphocytes # 1.1 (0.6-4.6) K/mcL Monocytes # 1.1 (0.0-1.3) K/mcL Eosinophils # 0.2 (0.0-0.6) K/mcL Basophils # 0.0 (0.0-0.2) K/mcL Sodium 134 L (136-145) mEq/L Potassium 5.0 (3.5-5.1) mEq/L Chloride 101 (98-107) mEq/L Carbon Dioxide 30 H (23-29) mEq/L BUN 45 H (8-23) mg/dL Creatinine 1.35 H (0.60-1.20) mg/dL Est GFR ( Amer) 46 L (> 60) Est GFR (Non-Af Amer) 38 L (> 60) BUN/Creatinine Ratio 33 H (6-26) Glucose 143 H (70-105) mg/dL Calculated Osmolality 292 (280-300) Lactic Acid (0.5-2.2) mmol/L Calcium 8.4 L (8.6-10.3) mg/dL Total Bilirubin (0.3-1.0) mg/dL Direct Bilirubin (0.0-0.2) mg/dL Indirect Bilirubin (0.0-1.2) mg/dL AST (13-39) Units/L ALT (7-52) Units/L Alkaline Phosphatase (34-104) Units/L Troponin I 0.45 H* (< 0.04) ng/mL B-Natriuretic Peptide 155 H (Less than 100) pg/mL Serum Total Protein (6.4-8.9) g/dL Albumin (3.5-5.7) g/dL Globulin (2.4-3.5) g/dL Albumin/Globulin Ratio (1.1-2.2) 06/03/18 06/03/18 Range/Units 15:55 15:55 WBC (4.3-11.1) K/mcL RBC (3.82-4.97) M/mcL Hgb (11.5-15.4) g/dL Hct (35.3-44.9) % MCV (83.0-100.0) fL MCH (28.0-33.3) pg MCHC (31.6-35.5) g/dL RDW (11.5-14.5) % Plt Count (140-400) K/mcL MPV (9.4-12.4) fL Immature Gran % (0-4) % Seg Neutrophils % % Lymphocytes % % Monocytes % % Eosinophils % % Basophils % % Neutrophils # (1.6-8.9) K/mcL Lymphocytes # (0.6-4.6) K/mcL Monocytes # (0.0-1.3) K/mcL Eosinophils # (0.0-0.6) K/mcL Basophils # (0.0-0.2) K/mcL Sodium (136-145) mEq/L Potassium (3.5-5.1) mEq/L Chloride (98-107) mEq/L Carbon Dioxide (23-29) mEq/L BUN (8-23) mg/dL Creatinine (0.60-1.20) mg/dL Est GFR ( Amer) (> 60) Est GFR (Non-Af Amer) (> 60) BUN/Creatinine Ratio (6-26) Glucose (70-105) mg/dL Calculated Osmolality (280-300) Lactic Acid 0.6 (0.5-2.2) mmol/L Calcium (8.6-10.3) mg/dL Total Bilirubin 0.6 (0.3-1.0) mg/dL Direct Bilirubin 0.1 (0.0-0.2) mg/dL Indirect Bilirubin 0.5 (0.0-1.2) mg/dL AST 23 (13-39) Units/L ALT 14 (7-52) Units/L Alkaline Phosphatase 66 (34-104) Units/L Troponin I (< 0.04) ng/mL B-Natriuretic Peptide (Less than 100) pg/mL Serum Total Protein 6.9 (6.4-8.9) g/dL Albumin 3.0 L (3.5-5.7) g/dL Globulin 3.9 H (2.4-3.5) g/dL Albumin/Globulin Ratio 0.8 L (1.1-2.2) - Radiology Data Radiology results reviewed: Yes I reviewed the patient's radiology results. Chest X-Ray 06/03/18 15:03 IMPRESSION: Vascular congestion with perihilar interstitial edema D/ / Magen Angel MD / Magen Angel MD Interpreting Provider: Magen Angel MD - EKG Data EKG #1 EKG attestation: Yes I reviewed and interpreted this EKG. EKG results narrative: Patient EKG shows sinus rhythm with occasional supraventricular premature contractions with a left bundle branch block and left axis deviation with a ventricular rate of 79 bpm UT interval of 182 ms QRS duration of 127 ms QT/QTc interval of 390/424 ms. There are no acute ST segment elevations or depressions , T-wave inversions, or other signs of ischemic change. Today's EKG is generally consistent with the previous EKG performed on June 052013. Attestation Statement - Attestation Attestation: I examined this patient and my medical decision-making was reviewed with the Resident Physician, Dr. Gomez. I agree with the documented findings, disposition and treatment plan as described except to the extent set forth below. Patient is a 77-year-old white female who is morbidly obese with a history of recent hospitalization for skin rash and right lower extremity wound infection. Patient presents today with complaints of gradually worsening shortness of breath over the past week associated with a coarse sounding nonproductive cough. Patient also complains of some lower extremity edema. Patient denies any form of chest pain pressure or heaviness, no palpitations, no lightheadedness or syncope. Patient denies any diaphoresis, no recent fevers chills or URI symptoms. Patient is not on oxygen but requiring nasal cannula oxygen for maintenance of oxygen saturation on arrival. Patient states she has been in the residential for rehabilitation following her recent hospitalization for her skin ulceration that she is been seeing the wound clinic for. Patient denies any significant right lower extremity pain calf pain or posterior knee pain, denies any other symptoms. I agree with patient's physical exam findings as documented. He should was some mild conversational dyspnea and occasional coarse sounding cough at bedside. Patient hypoxic on room air but improved on nasal cannula oxygen. Patient's EKG shows left bundle branch block without acute ischemia unchanged from prior EKGs. Patient's received aspirin had left full lab evaluation including cardiac enzymes as well as chest x-ray. On my assessment I took down the dressing on her right lower extremity wound as it was soaking through the dressing. Patient has a large ulceration noted to the right lateral ankle with significant surrounding soft tissue swelling and edema as well as erythema and increased warmth to touch that progresses up the anterior aspect of her right lower extremity to about the tibial tuberosity. No proximal streaking beyond that point. No crepitus in the soft tissues. Reviewing wound cultures on the patient had this tested positive for pseudomonas during her hospitalization and was pansensitive to antibiotics. We obtained repeat wound culture and it started patient on antibiotics here. Patient's chest x-ray shows mild pulmonary edema consistent with CHF. Patient has no prior history of CHF or cardiac testing in the system that I can find. Patient was given a dose of Lasix IV. Lab evaluation shows an elevated troponin of 0.45 with no prior troponin in the system for comparison. She remains chest pain-free at this time. Patient does have some acute renal insufficiency. Cardiology was consulate from the emergency department and and recommended heparin drip. They will follow the patient for non-STEMI. Hospitalist was contacted and patient admitted for your CHF, right lower extremity cellulitis and wound and acute renal insufficiency. Patient will be admitted to the hospitalist service for further evaluation and management.
[2018-06-03 16:11] LABS: Basophils % 0.2 %; Eosinophils # 0.2 K/mcL (0.0-0.6); Eosinophils % 1.8 %; Hematocrit 34.7 % (35.3-44.9); Hemoglobin 10.8 g/dL (11.5-15.4); Immature Granulocytes % 0.3 % (0-4); Lymphocytes # 1.1 K/mcL (0.6-4.6); Lymphocytes % 11.9 %; Mean Corpuscular HGB Conc 31.1 g/dL (31.6-35.5); Mean Corpuscular Hemoglobin 30.6 pg (28.0-33.3); Mean Corpuscular Volume 98.3 fL (83.0-100.0); Mean Platelet Volume 10.4 fL (9.4-12.4); Monocytes # 1.1 K/mcL (0.0-1.3); Monocytes % 11.4 %; Platelet Count 219 K/mcL (140-400); Red Blood Count 3.53 M/mcL (3.82-4.97); Red Cell Distribution Width 13.2 % (11.5-14.5); Segmented Neutrophils % 74.4 %
[2018-06-03 16:37] LABS: Calcium 8.4 mg/dL (8.6-10.3)
[2018-06-03] MEDS ORDERED: Piperacillin/Tazobactam 3.375 GM in 0.9 % Sodium Chloride Mini Bag 100 ML IVPB ONE (16:37)
[2018-06-03 16:42] LABS: Troponin I 0.45 ng/mL (< 0.04)
[2018-06-03 17:08] LABS: Albumin/Globulin Ratio 0.8 (1.1-2.2); Bilirubin,Direct 0.1 mg/dL (0.0-0.2); Bilirubin,Indirect 0.5 mg/dL (0.0-1.2); Bilirubin,Total 0.6 mg/dL (0.3-1.0); Globulin 3.9 g/dL (2.4-3.5); Total Protein 6.9 g/dL (6.4-8.9)
[2018-06-03] MEDS ORDERED: Aspirin 81 MG TAB.CHEW PO STA (17:08)
[2018-06-03] MEDS ORDERED: Furosemide 40 MG/4 ML VIAL IVP ONE (17:09)
[2018-06-03] MEDS ORDERED: *HR* Heparin 5,000 UNIT/ML VIAL IVP PRN (17:19)
[2018-06-03] MEDS ORDERED: *HR* Heparin 5,000 UNIT/ML VIAL IVP ONE (17:19)
[2018-06-03] MEDS ORDERED: Naloxone 0.4 MG/ML INJ IVP PRN (18:03)
[2018-06-03 18:43] LABS: INR 1.2
[2018-06-03] MEDS: Heparin 25,000 UNIT/500 ML D5W 25,000 UNIT/500 ML BAG IVC SCH (18:54)
--- NOTE | 2018-06-03 20:37 | Internal Med History&Physical ---
Date of Encounter: 06/04/18 Time of Encounter: 20:00 Internal Medicine - H&P: HPI Chief complaint: Cough and shortness of breath History of present illness: Ms. Meyers is a 77 year old female with pmh of hypertension, hyperlipidemia, thyroid disease presenting with complaints of coughing and shortness of breath for about 3 days. she says symptoms have been gradually getting worse to the point where she can hardly cathc her breath and that's why she came to the ER today. She says the coughing has been associated with production of greenish phlegm. She denies any chest pain, fevers r chills. She also notes she has been having pain and redness in both loweer exteremities "for a long time now". In the ER, chest xray showed vascular congestion with possible opacity and ankle xray showed diffuse soft tissue swelling. She is being admitted for further management Past Med Surg Social Fam HX - Past Medical History Medical history: diabetes, hyperlipidemia, hypertension, thyroid disease Additional medical history: OBESITY, neuropathy, chronic LE edema Psychiatric history: anxiety, depression - Past Surgical History Surgical History: no surgical history Additional surgical history: skin cancer surgery in 1997. - Social History Smoking Status: Former smoker Smokeless Tobacco Status: No Alcohol use: none Drug use: none - Family History Mother Adopted: No Family Member Ethnicity: Non- Living Status: Hx Family Cardiac Disorders: Yes Hx Family Respiratory Disorders: No Hx Family Cancer: Yes Hx Family GI Disorders: No Hx Family Endocrine Disorder: No Hx Family Neuromuscular Disorders: No Hx Family Neurologic Disorders: No Hx Family HEENT Disorders: No Hx Family Autoimmune Disorders: No Father Adopted: No Family Member Ethnicity: Non- Living Status: Hx Family Cardiac Disorders: Yes Hx Family Respiratory Disorders: No Hx Family Cancer: No Hx Family GI Disorders: No Hx Family Endocrine Disorder: No Hx Family Neuromuscular Disorders: No Hx Family Neurologic Disorders: No Hx Family HEENT Disorders: No Hx Family Autoimmune Disorders: No Internal Medicine - H&P: Meds Aspirin Enteric Coated [Aspirin EC] 81 mg PO DAILY 05/16/18 [History] Cholecalciferol (D-3) [Vitamin D] 5,000 unit PO DAILY 05/16/18 [History] Furosemide [Lasix] 40 mg PO QPM 05/16/18 [History] Furosemide [Lasix] 80 mg PO QAM 05/16/18 [History] Gabapentin [Neurontin] 300 mg PO BID 05/16/18 [History] Levothyroxine [Synthroid] 150 mcg PO DAILY 05/16/18 [History] Moexipril HCl 7.5 mg PO DAILY 05/16/18 [History] Multivitamin [One Daily Multivitamin] 1 tab PO DAILY 05/16/18 [History] Potassium Chloride [Klor-Con 10] 10 meq PO BID 05/16/18 [History] Simvastatin [Zocor] 20 mg PO HS 05/16/18 [History] DiphenhydraMINE [Benadryl] 25 mg PO Q6HR PRN capsule 05/19/18 [Rx] Nystatin POWDER [Nystop] 1 appl TP TID bottle 05/19/18 [Rx] 3 Allergy/AdvReac Type Severity Reaction Status Date / Time Sulfa (Sulfonamide Allergy Rash Verified 05/16/18 18:35 Antibiotics) All Systems PM: A 10-system review of systems was performed and is negative for pertinent findings except as documented above in the HPI. - Constitutional Constitutional: fatigue, malaise - EENT Eyes: no change in vision, no discharge, no pain, no photophobia Ears: no ear discharge, no ear pain, no tinnitus Nose, mouth and throat: no dysphagia, no nasal discharge, no neck pain, no sore throat - Cardiovascular Cardiovascular ROS IM: no chest pain, no diaphoresis, no dyspnea, no lightheadedness, no palpitations, no syncope - Respiratory Respiratory: cough, excessive phlegm production, no dyspnea, no wheezing - Gastrointestinal Gastrointestinal: no abdominal pain, no diarrhea, no hematemesis, no hematochezia, no melena, no nausea, no vomiting - Genitourinary Genitourinary: no change in urinary stream, no dysuria, no flank pain, no hematuria - Musculoskeletal Musculoskeletal ROS IM: no numbness, no tingling - Integumentary Integumentary IM: no rash, no unusual bruising - Neurological Neurological ROS: no confusion, no convulsions, no focal weakness, no numbness, no tingling, no tremor(s) - Hematologic/Lymphatic Hematologic/Lymphatic: no easy bruising - Constitutional Vitals: Temp Pulse Resp BP Pulse Ox 98.0 F 77 18 91/40 97 06/03/18 20:20 06/03/18 20:20 06/03/18 20:20 06/03/18 20:20 06/03/18 20:20 General appearance: Present: morbidly obese - Head Head exam: Present: atraumatic, normocephalic - Eye Eye exam: Present: PERRL, conjuntiva pink, sclera anicteric Pupils: Present: PERRL - Neck Neck exam general surgery: Present: supple, trachea midline. Absent: lymphadenopathy - Respiratory Respiratory exam: Present: CTAB. Absent: accessory muscle use, rales, rhonchi, wheezes - Cardiovascular Cardiovascular exam: Present: RRR, +S1, +S2. Absent: diastolic murmur, gallop, rubs, systolic murmur - GI/Abdominal GI/Abdominal exam: Present: normal bowel sounds, soft, no peritoneal signs. Absent: distended, tenderness - Extremities Exam Extremities exam: Present: warm, radial pulses palpable and symmetrical. Absent : calf tenderness, cyanotic, pedal edema Additional comments: Bilateral lower extremity warmth and redness - Neurological Exam Neurological exam: Present: CN II-XII intact, oriented X3, no focal deficits. Absent: pronater drift, facial droop, speech deficit - Skin Skin exam: Present: dry, intact Internal Med - H&P Results - Labs CBC & Chem 7: 06/04/18 01:16 06/04/18 01:16 - Impressions ITS Impressions Ankle X-Ray 06/03/18 17:59 IMPRESSION: Diffuse soft tissue swelling. No acute fracture. D/ / Keri Brewer MD / Keri Brewer MD Interpreting Provider: Keri Brewer MD - Assessment and plan (1) Non-ST elevation [place] (NSTEMI) Current Visit: Yes Status: Acute Assessment and plan: Pt came in with SOB. Troponins elevated at 0.45. Trend troponins, started on therapeutic antiocoagulation with heparin drip, on aspirin and plavix. Cardiology consulted. Obtain 2D echo. Npo from midnight fopr possible cath vs stress test based on cardiology recs (2) Congestive heart failure Current Visit: Yes Status: Acute Assessment and plan: Unclear EF. no echo on record. Obratin 2d echo, start on diuresis with lasix BID Qualifiers: Heart failure type: unspecified Heart failure chronicity: unspecified Qualified Code(s): I50.9 - Heart failure, unspecified (3) Cellulitis Current Visit: Yes Status: Acute Assessment and plan: Pt has bilateral lower extremity redness and warmth. On zosyn Qualifiers: Site of cellulitis: extremity Site of cellulitis of extremity: lower extremity Laterality: right Qualified Code(s): L03.115 - Cellulitis of right lower limb (4) Community acquired pneumonia Current Visit: Yes Status: Acute Assessment and plan: Presents with coughing and possible opacity on xray. On zosyn Qualifiers: Qualified Code(s): J18.9 - Pneumonia, unspecified organism (5) Hypoxia Current Visit: Yes Status: Acute Assessment and plan: Pt reportedly saturating in low 90s in ER, not previously on home oxygen, obtain V/q scan to r/o PE in light of elevated troponins (6) Hypothyroidism Current Visit: No Status: Chronic Assessment and plan: On levothyroxine Qualifiers: Hypothyroidism type: unspecified Qualified Code(s): E03.9 - Hypothyroidism , unspecified (7) DVT prophylaxis Current Visit: No Status: Acute Assessment and plan: On heparin drip - Time Spent With Patient Total time spent is greater than 50% in coordination of care (as documented) at patient's floor/unit and/or counseling patient:
[2018-06-03] MEDS: Piperacillin/Tazobactam 3.375 GM in 0.9 % Sodium Chloride Mini Bag 100 ML IVPB SCH (23:16)
[2018-06-04 01:31] LABS: Basophils % 0.1 %; Eosinophils # 0.3 K/mcL (0.0-0.6); Hematocrit 34.2 % (35.3-44.9); Hemoglobin 10.6 g/dL (11.5-15.4); Immature Granulocytes % 0.4 % (0-4); Lymphocytes # 1.1 K/mcL (0.6-4.6); Lymphocytes % 13.4 %; Mean Corpuscular Hemoglobin 30.8 pg (28.0-33.3); Mean Corpuscular Volume 99.4 fL (83.0-100.0); Mean Platelet Volume 10.2 fL (9.4-12.4); Monocytes % 12.5 %; Neutrophils # 5.8 K/mcL (1.6-8.9); Platelet Count 220 K/mcL (140-400); Red Blood Count 3.44 M/mcL (3.82-4.97); Red Cell Distribution Width 13.2 % (11.5-14.5); Segmented Neutrophils % 69.6 %
[2018-06-04 01:40] LABS: INR 1.1; Prothrombin Time 12.6 Seconds (9.4-12.1)
[2018-06-04 01:48] LABS: Calcium 8.6 mg/dL (8.6-10.3); Magnesium 2.4 mg/dL (1.6-2.6); Phosphorous 4.1 mg/dL (2.7-4.5); Potassium 4.6 mEq/L (3.5-5.1)
[2018-06-04] MEDS: Aspirin Enteric Coated 81 MG Tablet PO SCH (07:47)
[2018-06-04] MEDS: Piperacillin/Tazobactam 3.375 GM in 0.9 % Sodium Chloride Mini Bag 100 ML IVPB SCH ×2 (07:47→16:06)
[2018-06-04] MEDS: Furosemide 40 MG/4 ML VIAL IVP SCH ×2 (07:47→16:07)
[2018-06-04] MEDS ORDERED: Perflutren Lipid Microsphere 1.3 ML in 0.9 % Sodium Chloride 8.7 ML IVP ONE (10:55)
[2018-06-04] MEDS: *HR* Heparin 5,000 UNIT/ML VIAL IVP PRN ×2 (11:42→19:22)
--- NOTE | 2018-06-04 12:55 | Cardiology Consult Note ---
<SumaTye shepherd Salty - Last Filed: 06/04/18 13:04> Date of Encounter: 06/04/18 Time of Encounter: 12:52 Assessment and Plan (1) Non-ST elevation [place] (NSTEMI) Current Visit: Yes Status: Acute Troponins 0.48, 0.51, 0.48. This is in setting of possible PNA and diastolic CHF exacerbation, but would not have expected troponins to trend this high. TTE EF is preserved, moderate diastolic dysfunction. EKG LBBB, also noted in 2014. Denies chest pain, presented with dyspnea. Risk factors include HTN, HLD, obesity. Pt states hx of DM--check A1C. On heparin gtt. Continue ASA, Plavix, Statin, BB. Discussed LHC--R/B/A. Currently unable to lie flat and coughing frequently. Possible LHC during inpt stay if clinical course allows. Continue to follow. (2) Acute exacerbation of CHF (congestive heart failure) Current Visit: Yes Status: Acute Acute diastolic CHF exacerbation. TTE EF 60%, moderate LVDD. Agree with IV diuresis--IV Lasix 40mg BID. Recommend strict I/O, Na and fluid restriction, daily weights. Qualifiers: Heart failure type: diastolic Qualified Code(s): I50.33 - Acute on chronic diastolic (congestive) heart failure Discussion w patient/family: The assessment and plan as outlined above was discussed with the patient and/or family members who expressed understanding and agreement. All questions were answered. Thank you for involving us in the care of your patient. Please call with any questions. I will discuss all the above with Dr. Murphy and make changes as necessary. History of Present Illness Consult date: 06/04/18 Consult reason: elevated troponin Chief complaint: dyspnea History of present illness: Ms. Meyers is a 77 year old female with PMH of hypertension, hyperlipidemia, thyroid disease presenting with complaints of coughing and shortness of breath for the past 3 days. Symptoms have been gradually getting worse to the point where she can hardly catch her breath. Coughing has been associated with production of greenish phlegm. She denies any chest pain. She also notes she has been having pain and redness in both lower exteremities. CXR showed vascular congestion. Troponin 0.45, 0.51, 0.48. Cardiology consulted for further recs. TTE resulted. EF preserved with moderate diastolic dysfunction. Past Med Surg Social Fam HX - Past Medical History Medical history: diabetes, hyperlipidemia, hypertension, thyroid disease Additional medical history: OBESITY, neuropathy, chronic LE edema Psychiatric history: anxiety, depression - Past Surgical History Surgical History: no surgical history Additional surgical history: skin cancer surgery in 1997. - Social History Smoking Status: Former smoker Smokeless Tobacco Status: No Alcohol use: none Drug use: none - Family History Mother Adopted: No Family Member Ethnicity: Non- Living Status: Hx Family Cardiac Disorders: Yes Hx Family Respiratory Disorders: No Hx Family Cancer: Yes Hx Family GI Disorders: No Hx Family Endocrine Disorder: No Hx Family Neuromuscular Disorders: No Hx Family Neurologic Disorders: No Hx Family HEENT Disorders: No Hx Family Autoimmune Disorders: No Father Adopted: No Family Member Ethnicity: Non- Living Status: Hx Family Cardiac Disorders: Yes Hx Family Respiratory Disorders: No Hx Family Cancer: No Hx Family GI Disorders: No Hx Family Endocrine Disorder: No Hx Family Neuromuscular Disorders: No Hx Family Neurologic Disorders: No Hx Family HEENT Disorders: No Hx Family Autoimmune Disorders: No Medications and Allergies Aspirin Enteric Coated [Aspirin EC] 81 mg PO DAILY 05/16/18 [History] Cholecalciferol (D-3) [Vitamin D] 5,000 unit PO DAILY 05/16/18 [History] Furosemide [Lasix] 40 mg PO QPM 05/16/18 [History] Furosemide [Lasix] 80 mg PO QAM 05/16/18 [History] Gabapentin [Neurontin] 300 mg PO BID 05/16/18 [History] Levothyroxine [Synthroid] 150 mcg PO DAILY 05/16/18 [History] Moexipril HCl 7.5 mg PO DAILY 05/16/18 [History] Multivitamin [One Daily Multivitamin] 1 tab PO DAILY 05/16/18 [History] Potassium Chloride [Klor-Con 10] 10 meq PO BID 05/16/18 [History] Simvastatin [Zocor] 20 mg PO HS 05/16/18 [History] DiphenhydraMINE [Benadryl] 25 mg PO Q6HR PRN capsule 05/19/18 [Rx] Nystatin POWDER [Nystop] 1 appl TP TID bottle 05/19/18 [Rx] 3 Allergy/AdvReac Type Severity Reaction Status Date / Time Sulfa (Sulfonamide Allergy Rash Verified 05/16/18 18:35 Antibiotics) All Systems Review: The remainder of the systems were reviewed and are negative - Cardiovascular Cardiovascular: as per HPI, dyspnea at rest, dyspnea on exertion, leg edema - Respiratory Respiratory: cough, dyspnea Physical Examination Vital Signs, Last 4 Hours Temp Pulse Resp BP Pulse Ox 06/04/18 11:29 97.8 F 59 18 100/44 100 Vital Signs Temp Pulse Resp BP Pulse Ox 06/04/18 11:29 97.8 F 59 18 100/44 100 06/04/18 06:51 97.9 F 79 18 110/47 100 06/04/18 03:57 67 18 115/50 92 06/03/18 23:13 97.5 F L 72 18 108/55 96 06/03/18 20:20 98.0 F 77 18 91/40 97 06/03/18 20:10 75 06/03/18 14:45 97 06/03/18 14:17 99.5 F 86 18 92/50 94 Intake and Output 06/03/18 06/04/18 06/04/18 23:59 07:59 15:59 Intake Total 100 / 100 150 / 150 Output Total 1600 / 1600 Balance 100 / 100 -1450 / -1450 Intake: IV Fluids 100 / 100 150 / 150 Heparin 25,000 UNIT/500 ML D5W 0 / 0 150 / 150 25,000 unit In 500 ml @ 7.875 UNIT/KG/HR 20.003 mls/hr IVC . Q24H [facility] Rx#:[id number] Zosyn 3.375 GM In 0.9 % Sodium 100 / 100 Chloride (Mini-Bag +) 100 ML @ 25 mls/hr IVPB Q8HR [facility] Rx#: [id number] Oral 0 / 0 Output: Catheter 1600 / 1600 Other: Meal npo Weight 124.5 kg Blood Glucose* 109 101 General: Conversant, No Apparent Distress HEENT: Atraumatic, Normocephaly, Mucus Membranes Moist Neck: Normal carotid pulses Cardiac: Reg Rate and Rhythm, Normal S1 and S2, No Murmur Lungs: Other (diminished, wheezes) Neuro: Alert and responsive, No focal deficits noted Abdomen: Soft, Non-Tender Skin: No rashes noted on visualized skin Musculoskeletal: No Chest Wall Tenderness Extremities: Other (mild LE edema) Results 06/04/18 01:16 06/04/18 01:16 Lab Results 06/03/18 06/03/18 06/04/18 18:22 22:24 01:16 WBC 8.3 Hgb 10.6 L Hct 34.2 L Plt Count 220 INR 1.2 Sodium Potassium Chloride Carbon Dioxide BUN Creatinine Glucose Calcium Magnesium Troponin I 0.51 H* 06/04/18 06/04/18 06/04/18 01:16 01:16 01:16 WBC Hgb Hct Plt Count INR 1.1 Sodium 138 Potassium 4.6 Chloride 101 Carbon Dioxide 34 H BUN 38 H Creatinine 1.09 Glucose 124 H Calcium 8.6 Magnesium 2.4 Troponin I 0.48 H* Short CBC 06/04/18 06/03/18 Range/Units 01:16 15:55 WBC 8.3 9.5 (4.3-11.1) K/mcL Hgb 10.6 L 10.8 L (11.5-15.4) g/dL Hct 34.2 L 34.7 L (35.3-44.9) % Plt Count 220 219 (140-400) K/mcL Neutrophils # 5.8 7.0 (1.6-8.9) K/mcL BMP 06/04/18 06/03/18 Range/Units 01:16 15:55 Sodium 138 134 L (136-145) mEq/L Potassium 4.6 5.0 (3.5-5.1) mEq/L Chloride 101 101 (98-107) mEq/L Carbon Dioxide 34 H 30 H (23-29) mEq/L BUN 38 H 45 H (8-23) mg/dL Creatinine 1.09 1.35 H (0.60-1.20) mg/dL Glucose 124 H 143 H (70-105) mg/dL Calcium 8.6 8.4 L (8.6-10.3) mg/dL Cardiac Enzymes 06/04/18 06/03/18 06/03/18 Range/Units 01:16 22:24 15:55 Troponin I 0.48 H* 0.51 H* 0.45 H* (< 0.04) ng/mL Liver Function 06/03/18 Range/Units 15:55 Total Bilirubin 0.6 (0.3-1.0) mg/dL Direct Bilirubin 0.1 (0.0-0.2) mg/dL AST 23 (13-39) Units/L ALT 14 (7-52) Units/L Alkaline Phosphatase 66 (34-104) Units/L Albumin 3.0 L (3.5-5.7) g/dL Impressions Chest X-Ray 06/03/18 15:03 IMPRESSION: Vascular congestion with perihilar interstitial edema D/ / Magen Angel MD / Magen Angel MD Interpreting Provider: Magen Angel MD Ankle X-Ray 06/03/18 17:59 IMPRESSION: Diffuse soft tissue swelling. No acute fracture. D/ / Keri Brewer MD / Keri Brewer MD Interpreting Provider: Keri Brewer MD Echocardiogram 06/03/18 19:48 Impressions: LVEF 55-60%. LV size upper limits of normal. Moderate left ventricular diastolic dysfunction. Definity echo contrast was used. Normal right ventricular structure and function. Moderate aortic stenosis. Mild tricuspid regurgitation. Moderate pulmonary hypertension. Left Ventricular Wall Motion: Rest Echo Findings All wall segments showed normal motion. Findings: Study Quality * Technically challenging due to body habitus. ECG Findings * Normal sinus rhythm. Left Ventricle * LVEF 55-60%. * LV size upper limits of normal. * Moderate left ventricular diastolic dysfunction. * Definity echo contrast was used. Right Ventricle * Normal right ventricular structure and function. Left Atrium * Moderately dilated left atrium. Right Atrium * Normal right atrial size. Mitral Valve * Normal mitral valve structure. * No mitral stenosis. * Mild mitral annular calcification * No mitral regurgitation. Aortic Valve * No aortic regurgitation. * Aortic valve leaflet morphology not well visualized. * Moderately calcified aortic valve leaflets. * Moderate aortic stenosis. PV 3.4m/s, MG 23 mmHg, DI 0.4, ZAIN 1.5cm2 Tricuspid Valve * Tricuspid valve not well visualized. * Mild tricuspid regurgitation. * Estimated RA pressure is 8 mmHg. * Estimated RVSP is 54 mmHg. * Moderate pulmonary hypertension. Pulmonic Valve * Pulmonic valve is not well visualized. * No pulmonic stenosis. * No pulmonic regurgitation. Pulmonary Artery * Pulmonary artery not well visualized. Aorta * Not well visualized. Pericardium * There is no pericardial effusion present. Interatrial Septum * No evidence of PFO by color Doppler. IVC * The IVC is not dilated. * < 50% respiratory change. Active Medications Aspirin (Aspirin Ec) 81 mg PO DAILY [facility] Stop: 12/04/18 09:01 Last Admin: 06/04/18 07:47 Dose: 81 mg Atorvastatin Calcium (Lipitor) 80 mg PO HS [facility] Stop: 12/03/18 21:01 Last Admin: 06/03/18 21:07 Dose: 80 mg Clopidogrel Bisulfate (Plavix) 75 mg PO DAILY [facility] Stop: 12/04/18 09:01 Last Admin: 06/04/18 07:47 Dose: 75 mg Furosemide (Lasix) 40 mg IVP BIDDIURETIC [facility] Stop: 12/04/18 08:01 Last Admin: 06/04/18 07:47 Dose: 40 mg Heparin Sodium (Porcine) (Heparin) 4,000 unit IVP Q6HR PRN PRN Reason: SEE COMMENTS Stop: 12/03/18 17:20 Heparin Sodium (Porcine) (Heparin) 2,000 unit IVP Q6HR PRN PRN Reason: SEE COMMENTS Stop: 12/03/18 17:20 Last Admin: 06/04/18 11:42 Dose: 2,000 unit Heparin Sodium/Dextrose (Heparin 25,000 Unit/500 Ml D5w) 25,000 unit in 500 mls @ 20.003 mls/hr IVC .Q24H [facility]; 7.875 UNIT/KG/HR PRN Reason: Protocol Stop: 12/03/18 17:31 Last Titration: 06/04/18 11:43 Dose: 9.84 unit/kg/hr, 25 mls/hr Piperacillin Sod/Tazobactam (Sod 3.375 gm/ Sodium Chloride) 100 mls @ 25 mls/ hr IVPB Q8HR [facility] Stop: 12/04/18 00:01 Last Admin: 06/04/18 07:47 Dose: 25 mls/hr Levothyroxine Sodium (Synthroid) 150 mcg PO DAILY@0630 [facility] Stop: 12/04/18 06:31 Last Admin: 06/04/18 06:08 Dose: 150 mcg Naloxone HCl (Narcan) 0.4 mg IVP Q2MIN PRN PRN Reason: SEE COMMENTS Stop: 12/03/18 18:04 - Imaging and Cardiology Echo: report reviewed - EKG Interpretation EKG results cardiology: personally reviewed (SUDARSHAN) Consult Discharge Plan - Plan Referrals: Jamila Betts, PROJECT EXECUTIVE [Primary Care Provider] - <Bill Murphy - Last Filed: 06/04/18 21:18> Date of Encounter: 06/04/18 - Attending Attestation I have personally performed a face to face evaluation on this patient. I have reviewed and agree with the care plan. History and Exam by me shows: CC: Shortness of breath HPI: Pt reports three day history of productive cough, shortness of breath, and fatigue. She denies chest pain, pressure or palpitations. She reports has been unable to lie flat for the last three days, is sleeping in a chair. She has no previous cardiac history. She also reports bilateral lower extremity redness and mild swelling. Troponins were drawn, show mild elevation, however no acute EKG changes. ROS: reviewed PMH: reviewed PE: Pt seen and examined, agree with findings with the addition of 2/6 BRIAN, most prominent right second interspace IMP:Plan; 1. Troponin elevation without chest pain, EKG changes, no previous cardiac hx, concerning for CAD, no LV wall motion abnormalites, will order stress imaging when pulmonary status improves. 2. Heart murmur: Consistent with , await echo results 3. Acute congestive heart failure secondary to diastolic dysfunction, responding to IV diuresis. Assessment and Plan Discussion w patient/family: The assessment and plan as outlined above was discussed with the patient and/or family members who expressed understanding and agreement. All questions were answered. Thank you for involving us in the care of your patient. Please call with any questions. History of Present Illness History of present illness: Ms. Meyers is a 77 year old female All Systems Review: The remainder of the systems were reviewed and are negative Physical Examination Vital Signs, Last 4 Hours Pulse 06/04/18 19:25 60 Results 06/04/18 01:16 06/04/18 01:16 Lab Results 06/03/18 06/04/18 06/04/18 22:24 01:16 01:16 WBC 8.3 Hgb 10.6 L Hct 34.2 L Plt Count 220 INR 1.1 Sodium Potassium Chloride Carbon Dioxide BUN Creatinine Glucose Calcium Magnesium Troponin I 0.51 H* 06/04/18 06/04/18 01:16 01:16 WBC Hgb Hct Plt Count INR Sodium 138 Potassium 4.6 Chloride 101 Carbon Dioxide 34 H BUN 38 H Creatinine 1.09 Glucose 124 H Calcium 8.6 Magnesium 2.4 Troponin I 0.48 H*
--- NOTE | 2018-06-04 16:35 | Internal Med Progress Note ---
Date of Encounter: 06/04/18 Time of Encounter: 10:35 - Assessment and plan (1) Non-ST elevation [place] (NSTEMI) Current Visit: Yes Status: Acute Assessment and plan: Initial troponin .51, trended down to .48. On Heparin gtt, ASa, and Plavix. Cardiology following. TTE with preserved EF and diastolic dysfunction. EKG with LBBB, not new. Plan for LHC at some point but unable to lie flat at this time due to cough. (2) Hypothyroidism Current Visit: No Status: Chronic Assessment and plan: c/w synthroid Qualifiers: Hypothyroidism type: unspecified Qualified Code(s): E03.9 - Hypothyroidism , unspecified (3) Congestive heart failure Current Visit: Yes Status: Chronic Assessment and plan: ECHO with EF 55-60%. Moderate LV diastolic dysfunction. Moderate . c/w Lasix 40 mg IV BID. I/O, dailly weights, fluid restriction. Qualifiers: Heart failure type: diastolic Heart failure chronicity: unspecified Qualified Code(s): I50.30 - Unspecified diastolic (congestive) heart failure (4) Cellulitis Current Visit: Yes Status: Chronic Assessment and plan: Pt has bilateral lower extremity redness and warmth. c/w Zosyn for now. Will de-escalate. Qualifiers: Site of cellulitis: extremity Site of cellulitis of extremity: lower extremity Laterality: right Qualified Code(s): L03.115 - Cellulitis of right lower limb (5) Community acquired pneumonia Current Visit: Yes Status: Acute Assessment and plan: Suspected PNA with cough and opacify on CXR. c/w Zosyn for now. Patient is afebrile with no leukocytosis however. respiratory panel. Blood cultures negative to date. Qualifiers: Qualified Code(s): J18.9 - Pneumonia, unspecified organism (6) Hypoxia Current Visit: Yes Status: Acute Assessment and plan: Saturation low 90s on RA. O2 support for now. Likely 2/2 HF vs. CAP Nuclear V/Q scan was ordered to r/o PE. Patient is not tachycardic, low suspicion. - Time Spent With Patient Total time spent is greater than 50% in coordination of care (as documented) at patient's floor/unit and/or counseling patient: - Subjective Interval history: Reports feeling fine, chest pain resolved. - Constitutional Vitals: Temp Pulse Resp BP Pulse Ox 97.9 F 65 18 107/50 98 06/04/18 15:51 06/04/18 15:51 06/04/18 15:51 06/04/18 15:51 06/04/18 15:51 General: Alert and oriented Skin: Normal color, no rash, no lesions. HEENT: EOMI, pupils equal, round and reactive. Cardiovascular: Regular rate. No murmurs appreciated. Lungs:Normal breath sounds, no wheezes or crackles. Abdomen:Soft, non-tender, no rigidity. Extremities:LE swelling with ulcers. Neurological:Normal cognition, no weakness, no numbness. Rest of the physical exam is non contributory General appearance: Present: morbidly obese Internal Medicine: Result - Labs CBC & Chem 7: 06/04/18 01:16 06/04/18 01:16 Labs: Short CBC 06/04/18 Range/Units 01:16 WBC 8.3 (4.3-11.1) K/mcL Hgb 10.6 L (11.5-15.4) g/dL Hct 34.2 L (35.3-44.9) % Plt Count 220 (140-400) K/mcL Neutrophils # 5.8 (1.6-8.9) K/mcL BMP 06/04/18 01:16 Sodium 138 Potassium 4.6 Chloride 101 Carbon Dioxide 34 H BUN 38 H Creatinine 1.09 Glucose 124 H Calcium 8.6 Cardiac Enzymes 06/03/18 06/04/18 Range/Units 22:24 01:16 Troponin I 0.51 H* 0.48 H* (< 0.04) ng/mL - ABG Interpretation ABG results: PT/INR, D-dimer PT 12.6 Seconds (9.4-12.1) H 06/04/18 01:16 - Impressions Impressions Ankle X-Ray 06/03/18 17:59 IMPRESSION: Diffuse soft tissue swelling. No acute fracture. D/ / Keri Brewer MD / Keri Brewer MD Interpreting Provider: Keri Brewer MD Echocardiogram 06/03/18 19:48 Impressions: LVEF 55-60%. LV size upper limits of normal. Moderate left ventricular diastolic dysfunction. Definity echo contrast was used. Normal right ventricular structure and function. Moderate aortic stenosis. Mild tricuspid regurgitation. Moderate pulmonary hypertension. Left Ventricular Wall Motion: Rest Echo Findings All wall segments showed normal motion. Findings: Study Quality * Technically challenging due to body habitus. ECG Findings * Normal sinus rhythm. Left Ventricle * LVEF 55-60%. * LV size upper limits of normal. * Moderate left ventricular diastolic dysfunction. * Definity echo contrast was used. Right Ventricle * Normal right ventricular structure and function. Left Atrium * Moderately dilated left atrium. Right Atrium * Normal right atrial size. Mitral Valve * Normal mitral valve structure. * No mitral stenosis. * Mild mitral annular calcification * No mitral regurgitation. Aortic Valve * No aortic regurgitation. * Aortic valve leaflet morphology not well visualized. * Moderately calcified aortic valve leaflets. * Moderate aortic stenosis. PV 3.4m/s, MG 23 mmHg, DI 0.4, ZAIN 1.5cm2 Tricuspid Valve * Tricuspid valve not well visualized. * Mild tricuspid regurgitation. * Estimated RA pressure is 8 mmHg. * Estimated RVSP is 54 mmHg. * Moderate pulmonary hypertension. Pulmonic Valve * Pulmonic valve is not well visualized. * No pulmonic stenosis. * No pulmonic regurgitation. Pulmonary Artery * Pulmonary artery not well visualized. Aorta * Not well visualized. Pericardium * There is no pericardial effusion present. Interatrial Septum * No evidence of PFO by color Doppler. IVC * The IVC is not dilated. * < 50% respiratory change. Consult Discharge Plan - Plan Referrals: Jamila Betts, POCKET MAKER [Primary Care Provider] -
[2018-06-05] MEDS: Piperacillin/Tazobactam 3.375 GM in 0.9 % Sodium Chloride Mini Bag 100 ML IVPB SCH ×3 (00:37→17:57)
[2018-06-05 01:58] LABS: Acinetobacter baumannii by PCR Not Detected (Not Detect); Candida albicans by PCR Not Detected (Not Detect); Candida glabrata by PCR Not Detected (Not Detect); Candida krusei by PCR Not Detected (Not Detect); Candida parapsilosis by PCR Not Detected (Not Detect); Candida tropicalis by PCR Not Detected (Not Detect); Enterococcus by PCR Not Detected (Not Detect); Escherichia coli by PCR Not Detected (Not Detect); Klebsiella oxytoca by PCR Not Detected (Not Detect); Klebsiella pneumoniae by PCR Not Detected (Not Detect); Pseudomonas aeruginosa by PCR Not Detected (Not Detect); Serratia marcescens by PCR Not Detected (Not Detect); Staphylococcus aureus by PCR Not Detected (Not Detect); Streptococcus agalactiae(B)PCR Not Detected (Not Detect); Streptococcus by PCR Not Detected (Not Detect); Streptococcus pneumoniae PCR Not Detected (Not Detect); Streptococcus pyogenes (A) PCR Not Detected (Not Detect); blaKPC Carbapenem-Resist Gene Not Detected (Not Detect); mecA Methicillin-Resist Gene DETECTED (Not Detect); vanA/B Vancomycin-Resist Genes Not Detected (Not Detect)
[2018-06-05 02:10] LABS: Basophils % 0.3 %; Eosinophils # 0.4 K/mcL (0.0-0.6); Eosinophils % 4.6 %; Hematocrit 37.2 % (35.3-44.9); Hemoglobin 11.6 g/dL (11.5-15.4); Immature Granulocytes % 0.4 % (0-4); Lymphocytes # 1.1 K/mcL (0.6-4.6); Lymphocytes % 14.8 %; Mean Corpuscular HGB Conc 31.2 g/dL (31.6-35.5); Mean Corpuscular Hemoglobin 30.4 pg (28.0-33.3); Mean Corpuscular Volume 97.6 fL (83.0-100.0); Monocytes # 0.9 K/mcL (0.0-1.3); Monocytes % 11.9 %; Neutrophils # 5.2 K/mcL (1.6-8.9); Platelet Count 246 K/mcL (140-400); Red Blood Count 3.81 M/mcL (3.82-4.97); Red Cell Distribution Width 12.7 % (11.5-14.5)
[2018-06-05 02:22] LABS: BUN/Creatinine Ratio 31 (6-26); Blood Urea Nitrogen 24 mg/dL (8-23); Carbon Dioxide 38 mEq/L (23-29); Chloride 96 mEq/L (98-107); Glucose 116 mg/dL (70-105); Osmolality,Calculated 295 (280-300); Potassium 4.2 mEq/L (3.5-5.1); Sodium 140 mEq/L (136-145); eGFR For African Americans > 60 (> 60); eGFR For Non-African Americans > 60 (> 60)
[2018-06-05] MEDS: Heparin 25,000 UNIT/500 ML D5W 25,000 UNIT/500 ML BAG IVC SCH ×2 (03:09→17:57)
[2018-06-05] MEDS: *HR* Heparin 5,000 UNIT/ML VIAL IVP PRN ×2 (03:15→11:13)
[2018-06-05] MEDS: Furosemide 40 MG/4 ML VIAL IVP SCH ×2 (07:49→17:57)
[2018-06-05] MEDS: Aspirin Enteric Coated 81 MG Tablet PO SCH (07:49)
[2018-06-05 08:54] LABS: Estimated Average Glucose 134 mg/dl; Hemoglobin A1C 6.3 %
--- NOTE | 2018-06-05 09:23 | Cardiology Progress Note ---
Date of Encounter: 06/05/18 Time of Encounter: 09:21 Assessment and Plan (1) Elevated troponin Current Visit: Yes Status: Acute Troponins 0.48, 0.51, 0.48, in setting of possible PNA and diastolic CHF exacerbation, and now positive blood cultures staph and mecA. Suspect demand ischemia given new finding of positive blood cultures. TTE EF is preserved, moderate diastolic dysfunction. EKG LBBB, also noted in 2014. Denies chest pain, presented with dyspnea. Risk factors include HTN, HLD, obesity. Pt states hx of DM--A1C 6.3. On heparin gtt. Will switch to DVT prophylaxis. Continue ASA, Statin, BB. Will stop Plavix, as it was started on admission. Initially discussed inpt ischemic evaluation (stress test, LHC). However, given positive blood cultures, preserved EF and lack of chest pain, recommend treating acute underlying issues and will coordinate close outpt follow-up. Will recommend outpt stress test. Cardiology signing off. Reconsult PRN. Cardiac rehab not warranted. (2) Acute exacerbation of CHF (congestive heart failure) Current Visit: Yes Status: Acute Acute diastolic CHF exacerbation. TTE EF 60%, moderate LVDD. Agree with IV diuresis--IV Lasix 40mg BID. Recommend transition to PO prior to d /c. Diuresing well. Cumulative I/O -5450mL. Recommend strict I/O, Na and fluid restriction, daily weights. Qualifiers: Heart failure type: diastolic Qualified Code(s): I50.33 - Acute on chronic diastolic (congestive) heart failure Discussion w patient/family: The assessment and plan as outlined above was discussed with the patient and/or family members who expressed understanding and agreement. All questions were answered. Thank you for involving us in the care of your patient. Please call with any questions. I will discuss all the above with Dr. Murphy and make changes as necessary. Subjective Interval history: Improving dyspnea. Pt denies chest pain. Cumulative I/O -5450mL. Blood cultures resulted and are positive for staph and mecA. Objective Vital Signs, Last 4 Hours Temp Pulse Resp BP Pulse Ox 06/05/18 06:57 98.7 F 68 18 100/45 95 Vital Signs Temp Pulse Resp BP Pulse Ox 06/05/18 06:57 98.7 F 68 18 100/45 95 06/05/18 03:31 98.0 F 73 12 114/51 94 06/05/18 00:45 97.8 F 72 14 143/58 90 06/04/18 21:09 98 F 66 18 108/54 96 06/04/18 19:25 60 06/04/18 15:51 97.9 F 65 18 107/50 98 06/04/18 11:29 97.8 F 59 18 100/44 100 Intake and Output 06/04/18 06/05/18 06/05/18 23:59 07:59 15:59 Intake Total 100 / 100 450 / 450 Output Total 2150 / 2150 1200 / 1200 Balance -2050 / -2050 -750 / -750 Intake: IV Fluids 100 / 100 450 / 450 Heparin 25,000 UNIT/500 ML D5W 0 / 0 350 / 350 25,000 unit In 500 ml @ 7.875 UNIT/KG/HR 20.003 mls/hr IVC . Q24H [facility] Rx#:[id number] Zosyn 3.375 GM In 0.9 % Sodium 100 / 100 100 / 100 Chloride (Mini-Bag +) 100 ML @ 25 mls/hr IVPB Q8HR [facility] Rx#: [id number] Oral 0 / 0 Output: Catheter 2149 1200 / 1200 Other: Meal NPO Weight 123.3 kg Blood Glucose* 109 95 Patient Weight 06/05/18 23:59 Weight 123.3 kg General: Conversant, No Apparent Distress HEENT: Atraumatic, Normocephaly, Mucus Membranes Moist Neck: Normal carotid pulses Cardiac: Reg Rate and Rhythm, Normal S1 and S2, No Murmur Lungs: Other (diminished) Neuro: Alert and responsive, No focal deficits noted Abdomen: Soft, Non-Tender Skin: No rashes noted on visualized skin Musculoskeletal: No Chest Wall Tenderness Extremities: Other (mild LE edema) Results 06/05/18 01:52 06/05/18 01:52 Lab Results 06/05/18 06/05/18 01:52 01:52 WBC 7.6 Hgb 11.6 Hct 37.2 Plt Count 246 Sodium 140 Potassium 4.2 Chloride 96 L Carbon Dioxide 38 H BUN 24 H Creatinine 0.78 Glucose 116 H Calcium 9.0 Short CBC 06/05/18 Range/Units 01:52 WBC 7.6 (4.3-11.1) K/mcL Hgb 11.6 (11.5-15.4) g/dL Hct 37.2 (35.3-44.9) % Plt Count 246 (140-400) K/mcL Neutrophils # 5.2 (1.6-8.9) K/mcL BMP 06/05/18 Range/Units 01:52 Sodium 140 (136-145) mEq/L Potassium 4.2 (3.5-5.1) mEq/L Chloride 96 L (98-107) mEq/L Carbon Dioxide 38 H (23-29) mEq/L BUN 24 H (8-23) mg/dL Creatinine 0.78 (0.60-1.20) mg/dL Glucose 116 H (70-105) mg/dL Calcium 9.0 (8.6-10.3) mg/dL Impressions Echocardiogram 06/03/18 19:48 Impressions: LVEF 55-60%. LV size upper limits of normal. Moderate left ventricular diastolic dysfunction. Definity echo contrast was used. Normal right ventricular structure and function. Moderate aortic stenosis. Mild tricuspid regurgitation. Moderate pulmonary hypertension. Left Ventricular Wall Motion: Rest Echo Findings All wall segments showed normal motion. Findings: Study Quality * Technically challenging due to body habitus. ECG Findings * Normal sinus rhythm. Left Ventricle * LVEF 55-60%. * LV size upper limits of normal. * Moderate left ventricular diastolic dysfunction. * Definity echo contrast was used. Right Ventricle * Normal right ventricular structure and function. Left Atrium * Moderately dilated left atrium. Right Atrium * Normal right atrial size. Mitral Valve * Normal mitral valve structure. * No mitral stenosis. * Mild mitral annular calcification * No mitral regurgitation. Aortic Valve * No aortic regurgitation. * Aortic valve leaflet morphology not well visualized. * Moderately calcified aortic valve leaflets. * Moderate aortic stenosis. PV 3.4m/s, MG 23 mmHg, DI 0.4, ZAIN 1.5cm2 Tricuspid Valve * Tricuspid valve not well visualized. * Mild tricuspid regurgitation. * Estimated RA pressure is 8 mmHg. * Estimated RVSP is 54 mmHg. * Moderate pulmonary hypertension. Pulmonic Valve * Pulmonic valve is not well visualized. * No pulmonic stenosis. * No pulmonic regurgitation. Pulmonary Artery * Pulmonary artery not well visualized. Aorta * Not well visualized. Pericardium * There is no pericardial effusion present. Interatrial Septum * No evidence of PFO by color Doppler. IVC * The IVC is not dilated. * < 50% respiratory change. Active Medications Aspirin (Aspirin Ec) 81 mg PO DAILY [facility] Stop: 12/04/18 09:01 Last Admin: 06/05/18 07:49 Dose: 81 mg Atorvastatin Calcium (Lipitor) 80 mg PO HS [facility] Stop: 12/03/18 21:01 Last Admin: 06/04/18 19:22 Dose: 80 mg Clopidogrel Bisulfate (Plavix) 75 mg PO DAILY [facility] Stop: 12/04/18 09:01 Last Admin: 06/05/18 07:49 Dose: 75 mg Furosemide (Lasix) 40 mg IVP BIDDIURETIC [facility] Stop: 12/04/18 08:01 Last Admin: 06/05/18 07:49 Dose: 40 mg Heparin Sodium (Porcine) (Heparin) 4,000 unit IVP Q6HR PRN PRN Reason: SEE COMMENTS Stop: 12/03/18 17:20 Heparin Sodium (Porcine) (Heparin) 2,000 unit IVP Q6HR PRN PRN Reason: SEE COMMENTS Stop: 12/03/18 17:20 Last Admin: 06/05/18 03:15 Dose: 2,000 unit Heparin Sodium/Dextrose (Heparin 25,000 Unit/500 Ml D5w) 25,000 unit in 500 mls @ 20.003 mls/hr IVC .Q24H [facility]; 7.875 UNIT/KG/HR PRN Reason: Protocol Stop: 12/03/18 17:31 Last Admin: 06/05/18 03:09 Dose: 13.77 unit/kg/hr, 35 mls/hr Piperacillin Sod/Tazobactam (Sod 3.375 gm/ Sodium Chloride) 100 mls @ 25 mls/ hr IVPB Q8HR [facility] Stop: 12/04/18 00:01 Last Admin: 06/05/18 07:50 Dose: 25 mls/hr Levothyroxine Sodium (Synthroid) 150 mcg PO DAILY@0630 [facility] Stop: 12/04/18 06:31 Last Admin: 06/05/18 05:42 Dose: 150 mcg Naloxone HCl (Narcan) 0.4 mg IVP Q2MIN PRN PRN Reason: SEE COMMENTS Stop: 12/03/18 18:04 - Imaging and Cardiology Echo: report reviewed - EKG Interpretation EKG results cardiology: other (12 hr tele AVG HR 70, SR, no significant pauses or arrhythmias) Consult Discharge Plan - Plan Referrals: Jamila Betts, ANIMAL NUTRITION CONSULTANT [Primary Care Provider] - (This patient is from [facility] noPCP appointment needed)
--- NOTE | 2018-06-05 18:21 | Internal Med Progress Note ---
Date of Encounter: 06/05/18 Time of Encounter: 10:30 - Assessment and plan (1) Non-ST elevation [place] (NSTEMI) Current Visit: Yes Status: Acute Assessment and plan: Initial troponin .51, trended down to .48. Cardiology following. TTE with preserved EF and diastolic dysfunction. Was On Heparin gtt, ASa, and Plavix. Discontinue Plavix per cardio recommendation. EKG with LBBB, not new. Initially planned for LHC or stress but chest pain had resolved. Plan for outpatient follow up instead. (2) Hypothyroidism Current Visit: No Status: Chronic Assessment and plan: c/w synthroid Qualifiers: Hypothyroidism type: unspecified Qualified Code(s): E03.9 - Hypothyroidism , unspecified (3) Congestive heart failure Current Visit: Yes Status: Chronic Assessment and plan: ECHO with EF 55-60%. Moderate LV diastolic dysfunction. Moderate . c/w Lasix 40 mg IV BID. I/O, dailly weights, fluid restriction. Qualifiers: Heart failure type: diastolic Heart failure chronicity: unspecified Qualified Code(s): I50.30 - Unspecified diastolic (congestive) heart failure (4) Cellulitis Current Visit: Yes Status: Chronic Assessment and plan: Pt has bilateral lower extremity redness and warmth. c/w Zosyn for now. Will de-escalate. Qualifiers: Site of cellulitis: extremity Site of cellulitis of extremity: lower extremity Laterality: right Qualified Code(s): L03.115 - Cellulitis of right lower limb (5) Community acquired pneumonia Current Visit: Yes Status: Acute Assessment and plan: Suspected PNA with cough and opacify on CXR. c/w Zosyn for now. Patient is afebrile with no leukocytosis however. respiratory panel. Blood cultures negative to date. Qualifiers: Qualified Code(s): J18.9 - Pneumonia, unspecified organism (6) Hypoxia Current Visit: Yes Status: Acute Assessment and plan: Saturation low 90s on RA. O2 support for now. Likely 2/2 HF vs. CAP Nuclear V/Q scan was ordered to r/o PE. Patient is not tachycardic, low suspicion. Unable to perform as patient has significant cough with lying flat. Heparin drip still on. Will do a d dimer. No need to imaging if negative. - Time Spent With Patient Total time spent is greater than 50% in coordination of care (as documented) at patient's floor/unit and/or counseling patient: - Subjective Interval history: Reports having a persistent cough. No complaints of chest pain. - Constitutional Vitals: Temp Pulse Resp BP Pulse Ox 98.8 F 81 20 117/63 95 06/05/18 16:21 06/05/18 16:21 06/05/18 16:21 06/05/18 16:21 06/05/18 16:21 General: Alert and oriented. Obese Skin: Normal color, no rash, no lesions. HEENT: EOMI, pupils equal, round and reactive. Cardiovascular: Regular rate. No murmurs appreciated. Lungs:Normal breath sounds, no wheezes or crackles. Abdomen:Soft, non-tender, no rigidity. Extremities:LE swelling with ulcers. Neurological:Normal cognition, no weakness, no numbness. Rest of the physical exam is non contributory General appearance: Present: morbidly obese Internal Medicine: Result - Labs CBC & Chem 7: 06/05/18 01:52 06/05/18 01:52 Labs: Short CBC 06/05/18 Range/Units 01:52 WBC 7.6 (4.3-11.1) K/mcL Hgb 11.6 (11.5-15.4) g/dL Hct 37.2 (35.3-44.9) % Plt Count 246 (140-400) K/mcL Neutrophils # 5.2 (1.6-8.9) K/mcL BMP 06/05/18 01:52 Sodium 140 Potassium 4.2 Chloride 96 L Carbon Dioxide 38 H BUN 24 H Creatinine 0.78 Glucose 116 H Calcium 9.0 - ABG Interpretation ABG results: PT/INR, D-dimer PT 12.6 Seconds (9.4-12.1) H 06/04/18 01:16 Consult Discharge Plan - Plan Referrals: Jamila Betts, TAG MARKER [Primary Care Provider] - (This patient is from [facility] noPCP appointment needed)
--- NOTE | 2018-06-05 19:35 | Electrocardiograph Report ---
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
[2018-06-05] MEDS: Gabapentin 300 MG CAPSULE PO SCH (20:25)
[2018-06-06] MEDS: Piperacillin/Tazobactam 3.375 GM in 0.9 % Sodium Chloride Mini Bag 100 ML IVPB SCH ×3 (01:28→15:54)
[2018-06-06 08:20] LABS: Basophils % 0.4 %; Eosinophils # 0.3 K/mcL (0.0-0.6); Eosinophils % 4.4 %; Hematocrit 34.6 % (35.3-44.9); Hemoglobin 11.1 g/dL (11.5-15.4); Immature Granulocytes % 0.5 % (0-4); Lymphocytes # 1.6 K/mcL (0.6-4.6); Lymphocytes % 19.9 %; Mean Corpuscular HGB Conc 32.1 g/dL (31.6-35.5); Mean Corpuscular Hemoglobin 30.7 pg (28.0-33.3); Mean Corpuscular Volume 95.8 fL (83.0-100.0); Mean Platelet Volume 10.1 fL (9.4-12.4); Monocytes # 1.1 K/mcL (0.0-1.3); Neutrophils # 4.7 K/mcL (1.6-8.9); Platelet Count 248 K/mcL (140-400); Red Blood Count 3.61 M/mcL (3.82-4.97); Red Cell Distribution Width 12.6 % (11.5-14.5); Segmented Neutrophils % 60.8 %
[2018-06-06 08:49] LABS: BUN/Creatinine Ratio 22 (6-26); Blood Urea Nitrogen 19 mg/dL (8-23); Calcium 8.8 mg/dL (8.6-10.3); Carbon Dioxide 36 mEq/L (23-29); Chloride 92 mEq/L (98-107); Glucose 113 mg/dL (70-105); Osmolality,Calculated 289 (280-300); Potassium 3.6 mEq/L (3.5-5.1); Sodium 138 mEq/L (136-145); eGFR For African Americans > 60 (> 60); eGFR For Non-African Americans > 60 (> 60)
[2018-06-06] MEDS: Furosemide 40 MG/4 ML VIAL IVP SCH (08:50)
[2018-06-06] MEDS: Gabapentin 300 MG CAPSULE PO SCH ×2 (08:51→20:14)
[2018-06-06] MEDS: Aspirin Enteric Coated 81 MG Tablet PO SCH (08:51)
[2018-06-06] MEDS: Heparin 25,000 UNIT/500 ML D5W 25,000 UNIT/500 ML BAG IVC SCH (11:15)
[2018-06-06] MEDS: Furosemide 40 MG TABLET PO SCH (15:54)
--- NOTE | 2018-06-06 16:09 | Internal Med Progress Note ---
Date of Encounter: 06/06/18 Time of Encounter: 10:30 - Assessment and plan (1) Congestive heart failure Current Visit: Yes Status: Acute Assessment and plan: Echocardiogram shows preserved ejection fraction, moderate diastolic dysfunction , moderate aortic stenosis and pulmonary hypertension. Cardiology recommendations appreciated, agree with diuresis. Recommend outpatient stress test. Will change Lasix to oral form, continue fluid restriction and urine output monitoring. Noted to have at least 7 L net negative fluid balance since admission. Continue telemetry monitoring. Qualifiers: Heart failure type: diastolic Heart failure chronicity: acute on chronic Qualified Code(s): I50.33 - Acute on chronic diastolic (congestive) heart failure (2) Hypothyroidism Current Visit: Yes Status: Chronic Qualifiers: Hypothyroidism type: unspecified Qualified Code(s): E03.9 - Hypothyroidism , unspecified (3) Non-ST elevation [place] (NSTEMI) Current Visit: Yes Status: Ruled-out Assessment and plan: Troponin elevation likely due to demand ischemia from underlying acute kidney injury, pneumonia, cellulitis. Cardiology consult appreciated, recommend outpatient stress test. Continue aspirin, statin, FIDEL inhibitor. (4) Cellulitis Current Visit: Yes Status: Acute Assessment and plan: Improving right leg cellulitis. Noted to have chronic right foot wound, will send wound culture. One out of 2 blood cultures grew gram-positive cocci, serology positive for Staphylococcus species, mec A gene+, possible contaminant. continue IV Zosyn for now. Repeat blood cultures. Qualifiers: Site of cellulitis: extremity Site of cellulitis of extremity: lower extremity Laterality: right Qualified Code(s): L03.115 - Cellulitis of right lower limb (5) Community acquired pneumonia Current Visit: Yes Status: Suspected Assessment and plan: blood cultures as above; continue IV Zosyn; supplemental o2 PRN; Qualifiers: Laterality: unspecified laterality Qualified Code(s): J18.9 - Pneumonia, unspecified organism (6) Morbid obesity Current Visit: Yes Status: Chronic (7) Pressure ulcer of right ankle, unstageable Current Visit: Yes Status: Chronic (8) Acute kidney injury Current Visit: Yes Status: Resolved (9) Acute respiratory failure Current Visit: Yes Status: Acute Assessment and plan: continue with PRN supplemental o2; less suspicion for PE, will discontinue IV Heparin drip; D-dimer elevation can be due to age, cellulitis and foot ulcer; will consider CTA chest if continues to have worsening hypoxia, distress; Qualifiers: Respiratory failure complication: hypoxia Qualified Code(s): J96.01 - Acute respiratory failure with hypoxia - Time Spent With Patient Total time spent is greater than 50% in coordination of care (as documented) at patient's floor/unit and/or counseling patient: - Subjective Interval history: Noted to be extremely drowsy, able to tell me her name; responds to tactile and painful stimuli; cannot provide any history due to these reasons; - Constitutional Vitals: Temp Pulse Resp BP Pulse Ox 98.2 F 63 16 116/53 94 06/06/18 15:55 06/06/18 15:55 06/06/18 15:55 06/06/18 15:55 06/06/18 15:55 General appearance: Present: A&O X 1 (extremely somnolent), morbidly obese. Absent: answers questions appropriately - Respiratory Respiratory exam: Present: CTAB (coarse breath sounds B/L). Absent: accessory muscle use, rales, rhonchi, wheezes - Cardiovascular Cardiovascular exam: Present: RRR, +S1, +S2. Absent: diastolic murmur, gallop, rubs, systolic murmur - GI/Abdominal GI/Abdominal exam: Present: normal bowel sounds, soft, no peritoneal signs. Absent: distended, tenderness - Extremities Exam Extremities exam: Present: pedal edema, warm, radial pulses palpable and symmetrical. Absent: calf tenderness, cyanotic Additional comments: right foot chronic wound with yellowish drainage; - Neurological Exam Neurological exam: Present: altered, CN II-XII intact, no focal deficits. Absent: pronater drift, facial droop, speech deficit Internal Medicine: Result - Labs CBC & Chem 7: 06/06/18 07:58 06/06/18 07:58 Labs: Short CBC 06/06/18 Range/Units 07:58 WBC 7.8 (4.3-11.1) K/mcL Hgb 11.1 L (11.5-15.4) g/dL Hct 34.6 L (35.3-44.9) % Plt Count 248 (140-400) K/mcL Neutrophils # 4.7 (1.6-8.9) K/mcL BMP 06/06/18 07:58 Sodium 138 Potassium 3.6 Chloride 92 L Carbon Dioxide 36 H BUN 19 Creatinine 0.87 Glucose 113 H Calcium 8.8 - ABG Interpretation ABG results: PT/INR, D-dimer PT 12.6 Seconds (9.4-12.1) H 06/04/18 01:16 D-Dimer 1314 ng/mLFEU (0-500) H 06/06/18 07:58 Consult Discharge Plan - Plan Referrals: Jamila Betts, COMBAT INFORMATION CENTER OFFICER [Primary Care Provider] - (This patient is from [facility] noPCP appointment needed)
[2018-06-06] MEDS: *HR* Heparin 5,000 UNIT/ML VIAL SQ SCH (17:54)
[2018-06-07] MEDS: Piperacillin/Tazobactam 3.375 GM in 0.9 % Sodium Chloride Mini Bag 100 ML IVPB SCH ×2 (05:08→07:13)
[2018-06-07] MEDS: *HR* Heparin 5,000 UNIT/ML VIAL SQ SCH (06:08)
[2018-06-07] MEDS: Aspirin Enteric Coated 81 MG Tablet PO SCH (07:13)
[2018-06-07] MEDS: Gabapentin 300 MG CAPSULE PO SCH (07:13)
[2018-06-07] MEDS: Furosemide 40 MG TABLET PO SCH (07:13)
[2018-06-07 11:26] VITALS: BP 107/47
--- NOTE | 2018-06-07 12:04 | Discharge Summary ---
- NOTES TO OUTPATIENT PROVIDER Notes to Outpatient Provider: Acute CHF, right leg cellulitis, now requiring O2 via NC at 2-3L/min Orders not resulted at time of discharge: Pending orders 06/03/18 21:37 Culture,Blood [BC] Routine 06/06/18 14:29 Culture,Wound [RM] Routine 06/06/18 20:09 Culture,Blood [BC] Routine Date of Encounter: 06/07/18 Time of Encounter: 10:30 - Discharge Diagnosis (1) Congestive heart failure Priority: Primary Status: Acute Qualifiers: Heart failure type: diastolic Heart failure chronicity: acute on chronic Qualified Code(s): I50.33 - Acute on chronic diastolic (congestive) heart failure (2) Hypothyroidism Priority: Secondary Status: Chronic Qualifiers: Hypothyroidism type: unspecified Qualified Code(s): E03.9 - Hypothyroidism , unspecified (3) Non-ST elevation [place] (NSTEMI) Priority: Primary Status: Ruled-out (4) Cellulitis Priority: Primary Status: Acute Qualifiers: Site of cellulitis: extremity Site of cellulitis of extremity: lower extremity Laterality: right Qualified Code(s): L03.115 - Cellulitis of right lower limb (5) Community acquired pneumonia Priority: Primary Status: Suspected Qualifiers: Laterality: unspecified laterality Qualified Code(s): J18.9 - Pneumonia, unspecified organism (6) Morbid obesity Priority: Secondary Status: Chronic (7) Pressure ulcer of right ankle, unstageable Priority: Secondary Status: Chronic (8) Acute kidney injury Priority: Primary Status: Resolved (9) Acute respiratory failure Priority: Primary Status: Acute Qualifiers: Respiratory failure complication: hypoxia Qualified Code(s): J96.01 - Acute respiratory failure with hypoxia Hospital course: Ms. Meyers is a 77 year old female snf resident with the above medical problems, who was admitted with worsening productive cough and shortness of breath. Initial chest x-ray showed vascular congestion with possible opacity. She was noted to have acute exacerbation of CHF, started on IV diuresis and fluid restriction. Cardiology was consulted, recommended outpatient stress test. Patient was noted to have mild troponin elevation due to cellulitis and acute CHF. Echocardiogram showed preserved EF, moderate LV diastolic dysfunction, moderate aortic stenosis and pulmonary hypertension. She was noted to have right leg cellulitis, continued on IV Zosyn. One out of 2 initial blood cultures grew Staphylococcus hemolyticus, which is likely a contaminant. Repeat blood cultures are negative. Wound care was consulted for chronic right ankle wound, final wound cultures are pending. Her cellulitis did improve and she is being discharged on oral Augmentin. She is otherwise medically stable for discharge back to [facility]. Discharge discussed with: patient, nurse - Time Spent with Patient Total time spent providing and/or coordinating discharge services: Greater than 30 minutes (45 min) - Discharge Medications Prescriptions: Amoxicillin/Clavulanate [Augmentin] 875 mg PO BIDWM #6 tablet Home Medications: Aspirin Enteric Coated [Aspirin EC] 81 mg PO DAILY 05/16/18 [History] Cholecalciferol (D-3) [Vitamin D] 5,000 unit PO DAILY 05/16/18 [History] Furosemide [Lasix] 40 mg PO QPM 05/16/18 [History] Furosemide [Lasix] 80 mg PO QAM 05/16/18 [History] Gabapentin [Neurontin] 300 mg PO BID 05/16/18 [History] Levothyroxine [Synthroid] 150 mcg PO DAILY 05/16/18 [History] Moexipril HCl 7.5 mg PO DAILY 05/16/18 [History] Multivitamin [One Daily Multivitamin] 1 tab PO DAILY 05/16/18 [History] Potassium Chloride [Klor-Con 10] 10 meq PO BID 05/16/18 [History] Simvastatin [Zocor] 20 mg PO HS 05/16/18 [History] DiphenhydraMINE [Benadryl] 25 mg PO Q6HR PRN capsule 05/19/18 [Rx] Nystatin POWDER [Nystop] 1 appl TP TID bottle 05/19/18 [Rx] Amoxicillin/Clavulanate [Augmentin] 875 mg PO BIDWM #6 tablet 06/07/18 [Rx] Collagenase Oint [Santyl] 1 appl TP DAILY tube 06/07/18 [Rx] Gentamicin Oint [Garamycin] 1 appl TP DAILY tube 06/07/18 [Rx] Allergies/Adverse Reactions: 3 Allergy/AdvReac Type Severity Reaction Status Date / Time Sulfa (Sulfonamide Allergy Rash Verified 05/16/18 18:35 Antibiotics) Date of admission: 06/03/18 17:58 Primary care physician: Jamila Betts CNP Consults: 06/06/18 14:00 Consult to Wound Care [CONS] Routine Reason for Consult: R lateral ankle wound Call Completed: No 06/07/18 11:55 Consult to Coin Wrapping Machine Operator [CONS] Routine Reason for SW Consult: discharge planning. patient from [facility] Discharging clinician: Sinai Koch Anticipated date of discharge: 06/07/18 - Constitutional Vitals: Temp Pulse Resp BP Pulse Ox 97.7 F 66 18 107/47 95 06/07/18 11:20 06/07/18 11:20 06/07/18 11:20 06/07/18 11:20 06/07/18 11:20 General appearance: Present: A&O X 2, morbidly obese, answers questions appropriately - Cardiovascular Cardiovascular exam: Present: RRR, +S1, +S2. Absent: diastolic murmur, gallop, rubs, systolic murmur - Patient Status Disposition: Transfer SNF Condition: Fair Functional capacity at discharge: uses cane/walker Overall status at discharge: patient is progressing back to baseline - Discharge Instructions Follow Up With: WOUND, CARE [Other] - 06/20/18 9:30 am (LOCATED AT THE [facility]TR[facility]WE[facility]) Jamila Betts CNP [Primary Care Provider] - (This patient is from [facility] noPCP appointment needed) Additional Instructions: F/up with PCP in 1-2 weeks - Diet and Activity Activity: as per physical therapy, wear oxygen at all times Diet: low fat, low cholesterol, low salt diet, other (fluid restriction to 1.5L/ day)
--- NOTE | 2018-06-07 12:10 | Physician Discharge Referral ---
ExtendedCare Referral Info Transfer To: Signature Provider in Charge: Sinai Koch Provider in Charge after Transfer: PCP Institutional Level of Care: Skilled - Diagnosis (1) Congestive heart failure Priority: Primary Status: Acute (2) Hypothyroidism Priority: Secondary Status: Chronic (3) Non-ST elevation [place] (NSTEMI) Priority: Primary Status: Ruled-out (4) Cellulitis Priority: Primary Status: Acute (5) Community acquired pneumonia Priority: Primary Status: Suspected (6) Morbid obesity Priority: Secondary Status: Chronic (7) Pressure ulcer of right ankle, unstageable Priority: Secondary Status: Chronic (8) Acute kidney injury Priority: Primary Status: Resolved (9) Acute respiratory failure Priority: Primary Status: Acute 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 Prognosis: Fair Aware of Diagnosis: Patient - Transfer Medications Prescriptions: Amoxicillin/Clavulanate [Augmentin] 875 mg PO BIDWM #6 tablet Home Medications: Aspirin Enteric Coated [Aspirin EC] 81 mg PO DAILY 05/16/18 [History] Cholecalciferol (D-3) [Vitamin D] 5,000 unit PO DAILY 05/16/18 [History] Furosemide [Lasix] 40 mg PO QPM 05/16/18 [History] Furosemide [Lasix] 80 mg PO QAM 05/16/18 [History] Gabapentin [Neurontin] 300 mg PO BID 05/16/18 [History] Levothyroxine [Synthroid] 150 mcg PO DAILY 05/16/18 [History] Moexipril HCl 7.5 mg PO DAILY 05/16/18 [History] Multivitamin [One Daily Multivitamin] 1 tab PO DAILY 05/16/18 [History] Potassium Chloride [Klor-Con 10] 10 meq PO BID 05/16/18 [History] Simvastatin [Zocor] 20 mg PO HS 05/16/18 [History] DiphenhydraMINE [Benadryl] 25 mg PO Q6HR PRN capsule 05/19/18 [Rx] Nystatin POWDER [Nystop] 1 appl TP TID bottle 05/19/18 [Rx] Amoxicillin/Clavulanate [Augmentin] 875 mg PO BIDWM #6 tablet 06/07/18 [Rx] Allergies/Adverse Reactions: 3 Allergy/AdvReac Type Severity Reaction Status Date / Time Sulfa (Sulfonamide Allergy Rash Verified 07/03/18 18:35 Antibiotics) - Respiratory Orders Oxygen / L per min (2-3L/min via NC to keep O2 sat>90%) Smoking Cessation: Smoking cessation has been advised. For more information, call the [place] Tobacco Quit Line at 0-737-BTFW-NOW. - Advance Directives Code Status: Full Code - Mobility Orders Ambulate - Rehabiliation Orders Rehab Potential: Fair Rehab Orders: ROM Exercises, Evaluation for Physical Therapy, Evaluation for Occupational Therapy - Diet Orders Cardiac (fluid restriction to 1.5L/day) CERTIFICATION: I certify that the transfer of the above named patient to an Extended Care Facility is necessary for the continuing treatment of the diagnosis listed. The above information is true and accurate reflection of patient's current condition. Confidential - Redisclosure prohibited without a patient's written consent.
[2018-06-07] MEDS ORDERED: Gentamicin Oint 15 GM TUBE TP SCH (12:45)
== END 2018-06-07 14:46 | DRG 291 ==
LOC: EMEROO 14:15 → SUATTDRO 17:58 → 2NNU 17:58
PROVIDERS: ADMIT Student in an Organized Health Care Education/Training Program; ATTEND Internal Medicine

== ENCOUNTER 2018-07-31 10:05 | Inpatient (IN) ==
--- NOTE | 2018-07-31 10:22 | Emergency Department Note ---
Disposition Clinical Impression: LUBNA (acute kidney injury), Elevated troponin, Hyperkalemia, UTI (urinary tract infection) Decubital ulcer Qualifiers: Pressure injury location: buttock Pressure injury stage: unspecified pressure injury stage Laterality: unspecified laterality Qualified Code(s): L89.309 - Pressure ulcer of unspecified buttock, unspecified stage Disposition: Admitted As Inpatient Condition: Fair General Adult HPI - General Chief complaint: ED Recheck/Abnormal Lab/Rx Stated complaint: high potassium Time Seen by Provider: 07/31/18 10:10 - Related Data Home Medications Medication Instructions Recorded Confirmed Aspirin Enteric Coated [Aspirin EC] 81 mg PO DAILY 05/16/18 07/31/18 Cholecalciferol (D-3) [Vitamin D] 1,000 unit PO DAILY 05/16/18 07/31/18 Furosemide [Lasix] 40 mg PO BID 05/16/18 07/31/18 Gabapentin [Neurontin] 300 mg PO BID 05/16/18 07/31/18 Levothyroxine [Synthroid] 150 mcg PO DAILY 05/16/18 07/31/18 Multivitamin [One Daily 1 tab PO DAILY 05/16/18 07/31/18 Multivitamin] Potassium Chloride [Klor-Con 10] 10 meq PO BID 05/16/18 07/31/18 Simvastatin [Zocor] 20 mg PO HS 05/16/18 07/31/18 Vancomycin [Vancocin] 1,000 mg IV DAILY 06/20/18 07/31/18 Acetaminophen [Tylenol] 650 mg PO Q6HR PRN 07/31/18 07/31/18 Lisinopril [Zestril] 10 mg PO DAILY 07/31/18 07/31/18 Spironolactone [Aldactone] 25 mg PO DAILY 07/31/18 07/31/18 Whey Protein Isolate [Unjury] 2 pack PO BID 07/31/18 07/31/18 Previous Rx's Medication Instructions Recorded DiphenhydraMINE [Benadryl] 25 mg PO Q6HR PRN capsule 05/19/18 Allergies Allergy/AdvReac Type Severity Reaction Status Date / Time Sulfa (Sulfonamide Allergy Rash Verified 07/31/18 11:38 Antibiotics) Past Medical History - Past Medical History Medical history: Reports: diabetes, hyperlipidemia, hypertension, thyroid disease Surgical history: Reports: no surgical history Psychiatric history: Reports: anxiety, depression - Social History Smoking Status: Former smoker Smokeless Tobacco Status: No Alcohol use: Reports: none Drug use: Reports: none Course Vital Signs Temperature 98.6 F 07/31/18 10:09 Pulse Rate 62 07/31/18 10:09 Respiratory Rate 18 07/31/18 10:09 Blood Pressure 103/42 07/31/18 10:09 O2 Sat by Pulse Oximetry 98 07/31/18 10:09 Temperature 97.4 F L 07/31/18 15:51 Pulse Rate 65 07/31/18 15:51 Respiratory Rate 14 07/31/18 15:51 Blood Pressure 95/43 07/31/18 15:51 O2 Sat by Pulse Oximetry 99 07/31/18 15:51 Oxygen Delivery Oxygen Delivery Room Air Medical Decision Making - Lab Data Result diagrams: 07/31/18 10:12 07/31/18 14:27 Lab Results 07/31/18 07/31/18 07/31/18 Range/Units 10:12 10:12 10:12 WBC 8.8 (4.3-11.1) K/mcL RBC 3.38 L (3.82-4.97) M/mcL Hgb 10.2 L (11.5-15.4) g/dL Hct 33.3 L (35.3-44.9) % MCV 98.5 (83.0-100.0) fL MCH 30.2 (28.0-33.3) pg MCHC 30.6 L (31.6-35.5) g/dL RDW 14.2 (11.5-14.5) % Plt Count 195 (140-400) K/mcL MPV 10.1 (9.4-12.4) fL Immature Gran % 0.3 (0-4) % Seg Neutrophils % 70.5 % Lymphocytes % 15.6 % Monocytes % 10.1 % Eosinophils % 3.4 % Basophils % 0.1 % Neutrophils # 6.2 (1.6-8.9) K/mcL Lymphocytes # 1.4 (0.6-4.6) K/mcL Monocytes # 0.9 (0.0-1.3) K/mcL Eosinophils # 0.3 (0.0-0.6) K/mcL Basophils # 0.0 (0.0-0.2) K/mcL PT 10.8 (9.4-12.1) Seconds INR 1.0 APTT 26.5 (26.0-36.0) Seconds Sodium 130 L (136-145) mEq/L Potassium 6.2 H (3.5-5.1) mEq/L Chloride 96 L (98-107) mEq/L Carbon Dioxide 30 H (23-29) mEq/L BUN 54 H (8-23) mg/dL Creatinine 2.18 H (0.60-1.20) mg/dL Est GFR ( Amer) 27 L (> 60) Est GFR (Non-Af Amer) 22 L (> 60) BUN/Creatinine Ratio 25 (6-26) Glucose 106 H (70-105) mg/dL Calculated Osmolality 285 (280-300) Lactic Acid (0.5-2.2) mmol/L Calcium 8.1 L (8.6-10.3) mg/dL Phosphorus 6.6 H (2.7-4.5) mg/dL Magnesium 2.1 (1.6-2.6) mg/dL Total Bilirubin 0.4 (0.3-1.0) mg/dL Direct Bilirubin 0.1 (0.0-0.2) mg/dL Indirect Bilirubin 0.3 (0.0-1.2) mg/dL AST 11 L (13-39) Units/L ALT 6 L (7-52) Units/L Alkaline Phosphatase 65 (34-104) Units/L Troponin I 0.44 H* (< 0.04) ng/mL Serum Total Protein 6.6 (6.4-8.9) g/dL Albumin 3.0 L (3.5-5.7) g/dL Globulin 3.6 H (2.4-3.5) g/dL Albumin/Globulin Ratio 0.8 L (1.1-2.2) Urine Color (Yellow) Urine Clarity (Clear) Urine pH (5.0-8.0) pH Units Ur Specific [place] (1.010-1.025) Urine Protein (Neg-Trace) mg/dL Urine Glucose (UA) (Normal) mg/dL Urine Ketones (Negative) mg/dL Urine Blood (Negative) Urine Nitrite (Negative) Urine Bilirubin (Negative) Urine Urobilinogen (Normal) mg/dL Ur Leukocyte Esterase (Negative) Urine Microscopic RBC (0-3) per hpf Urine Microscopic WBC (0-3) per hpf Ur Squamous Epith Cells (None-Few) per lpf Ur Renal Epithelial Cell (None-Few) per hpf Amorphous Sediment (Few) Urine Bacteria (None-Few) per hpf Urine Yeast (None Seen) per hpf Ur Culture Indicated? (NO) 07/31/18 07/31/18 Range/Units 10:24 10:36 WBC (4.3-11.1) K/mcL RBC (3.82-4.97) M/mcL Hgb (11.5-15.4) g/dL Hct (35.3-44.9) % MCV (83.0-100.0) fL MCH (28.0-33.3) pg MCHC (31.6-35.5) g/dL RDW (11.5-14.5) % Plt Count (140-400) K/mcL MPV (9.4-12.4) fL Immature Gran % (0-4) % Seg Neutrophils % % Lymphocytes % % Monocytes % % Eosinophils % % Basophils % % Neutrophils # (1.6-8.9) K/mcL Lymphocytes # (0.6-4.6) K/mcL Monocytes # (0.0-1.3) K/mcL Eosinophils # (0.0-0.6) K/mcL Basophils # (0.0-0.2) K/mcL PT (9.4-12.1) Seconds INR APTT (26.0-36.0) Seconds Sodium (136-145) mEq/L Potassium (3.5-5.1) mEq/L Chloride (98-107) mEq/L Carbon Dioxide (23-29) mEq/L BUN (8-23) mg/dL Creatinine (0.60-1.20) mg/dL Est GFR ( Amer) (> 60) Est GFR (Non-Af Amer) (> 60) BUN/Creatinine Ratio (6-26) Glucose (70-105) mg/dL Calculated Osmolality (280-300) Lactic Acid 0.8 (0.5-2.2) mmol/L Calcium (8.6-10.3) mg/dL Phosphorus (2.7-4.5) mg/dL Magnesium (1.6-2.6) mg/dL Total Bilirubin (0.3-1.0) mg/dL Direct Bilirubin (0.0-0.2) mg/dL Indirect Bilirubin (0.0-1.2) mg/dL AST (13-39) Units/L ALT (7-52) Units/L Alkaline Phosphatase (34-104) Units/L Troponin I (< 0.04) ng/mL Serum Total Protein (6.4-8.9) g/dL Albumin (3.5-5.7) g/dL Globulin (2.4-3.5) g/dL Albumin/Globulin Ratio (1.1-2.2) Urine Color Yellow (Yellow) Urine Clarity Slightly Cloudy A (Clear) Urine pH 5.0 (5.0-8.0) pH Units Ur Specific [place] 1.010 (1.010-1.025) Urine Protein Negative (Neg-Trace) mg/dL Urine Glucose (UA) Normal (Normal) mg/dL Urine Ketones Negative (Negative) mg/dL Urine Blood Moderate H (Negative) Urine Nitrite Negative (Negative) Urine Bilirubin Negative (Negative) Urine Urobilinogen Normal (Normal) mg/dL Ur Leukocyte Esterase Large H (Negative) Urine Microscopic RBC 3-5 H (0-3) per hpf Urine Microscopic WBC 50-100 H (0-3) per hpf Ur Squamous Epith Cells Moderate H (None-Few) per lpf Ur Renal Epithelial Cell Few (None-Few) per hpf Amorphous Sediment Moderate H (Few) Urine Bacteria Many H (None-Few) per hpf Urine Yeast Few H (None Seen) per hpf Ur Culture Indicated? YES A (NO) Critical Care Time Critical Care Time: Yes Total Critical Care Time: 40 Attestation: Critical care performed: Time is exclusive of separately billable procedures. Time includes: direct patient care, patient reassessment, coordination of patient care, interpretation of data (laboratory data, radiology data, and respiratory data), review of patient's medical records, medical consultation and documentation of patient care. Procedures included in critical care time: Procedures excluded from critical care time: Attestation Statement - Attestation Attestation: I examined this patient and my medical decision-making was reviewed with the Resident Physician. I agree with the documented findings, disposition and treatment plan as described except to the extent set forth below. Patient to the ED with a chief complaint of a high potassium. [facility]. On examination she is laying in bed. She has a pressure ulcer to the right lateral ankle and a large open wound to the sacrum. Abdomen soft. She is oriented. Moving all extremities. Plan. Patient recently PICC line DC'd her arm. Culture sent of the sacral wound that is open. Septic workup. Electrolytes. If potassium is in fact 6 will need to be treated. Patient with acute kidney injury and hyperkalemia. Pneumonia. UTI. Patient treated for age. She is not tachycardic. She is not febrile. She does not meet sepsis criteria. Not been hypotensive here. Admitted to medicine with nephrology consult.
--- NOTE | 2018-07-31 10:24 | Emergency Department Note ---
Disposition Clinical Impression: LUBNA (acute kidney injury), Elevated troponin, Hyperkalemia Decubital ulcer Qualifiers: Pressure injury location: buttock Pressure injury stage: unspecified pressure injury stage Laterality: unspecified laterality Qualified Code(s): L89.309 - Pressure ulcer of unspecified buttock, unspecified stage UTI (urinary tract infection) Qualifiers: Urinary tract infection type: catheter-associated UTI Indwelling urinary catheter type: indwelling urethral catheter Encounter type: initial encounter Qualified Code(s): T83.511A - Infection and inflammatory reaction due to indwelling urethral catheter, initial encounter; N39.0 - Urinary tract infection , site not specified Disposition: Admitted As Inpatient Condition: Fair Time of Disposition: 13:35 General Adult HPI - General Chief complaint: ED Recheck/Abnormal Lab/Rx Stated complaint: high potassium Time Seen by Provider: 07/31/18 10:10 Source: patient Mode of arrival: ambulatory Limitations: no limitations Nursing Notes Reviewed: Yes Vital Signs Reviewed: Yes - History of Present Illness HPI Narrative: Patient is a 77-year-old female presenting with high potassium from outside facility. Patient history presented by EMS stating that prior to arrival patient was at facility, noted [employer] to be slightly confused and alert and oriented only to person. Was noted that lab draw this morning revealed the patient had elevated potassium at 6.8. Patient also has ulcer to the right lateral ankle as well as at the sacrum. Patient states that she has been seen by wound care multiple times for this, however is unclear when the swelling started. She states that she recently has been on vancomycin for infection however does not know why she is taking this. Currently the patient denies fever, chills, abdominal pain, nausea, vomiting, chest pain or shortness of breath. She states that she does not feel confused at this point in time. She denies any focal weakness, sensation changes. Currently patient states that she feels at baseline, denies confusion. She has known in the room to her baseline mental status. - Related Data Home Medications Medication Instructions Recorded Confirmed Aspirin Enteric Coated [Aspirin EC] 81 mg PO DAILY 05/16/18 07/31/18 Cholecalciferol (D-3) [Vitamin D] 1,000 unit PO DAILY 05/16/18 07/31/18 Furosemide [Lasix] 40 mg PO BID 05/16/18 07/31/18 Gabapentin [Neurontin] 300 mg PO BID 05/16/18 07/31/18 Levothyroxine [Synthroid] 150 mcg PO DAILY 05/16/18 07/31/18 Multivitamin [One Daily 1 tab PO DAILY 05/16/18 07/31/18 Multivitamin] Potassium Chloride [Klor-Con 10] 10 meq PO BID 05/16/18 07/31/18 Simvastatin [Zocor] 20 mg PO HS 05/16/18 07/31/18 Vancomycin [Vancocin] 1,000 mg IV DAILY 06/20/18 07/31/18 Acetaminophen [Tylenol] 650 mg PO Q6HR PRN 07/31/18 07/31/18 Lisinopril [Zestril] 10 mg PO DAILY 07/31/18 07/31/18 Spironolactone [Aldactone] 25 mg PO DAILY 07/31/18 07/31/18 Whey Protein Isolate [Unjury] 2 pack PO BID 07/31/18 07/31/18 Previous Rx's Medication Instructions Recorded DiphenhydraMINE [Benadryl] 25 mg PO Q6HR PRN capsule 05/19/18 Allergies Allergy/AdvReac Type Severity Reaction Status Date / Time Sulfa (Sulfonamide Allergy Rash Verified 07/31/18 11:38 Antibiotics) All systems ED: reviewed and negative except as stated. Review of Systems: As Per HPI Constitutional: Denies: fever, chills, weakness ENT ED: Denies: congestion Cardiovascular: Denies: chest pain, palpitations, dyspnea on exertion, syncope Respiratory: Denies: cough, dyspnea, wheezes, hemoptysis Gastrointestinal: Denies: abdominal pain, nausea, vomiting, diarrhea, constipation Genitourinary: Denies: frequency, hematuria Musculoskeletal: Denies: back pain Integumentary: Reports: other (mutliple ulcers, located to the right lateral ankle and open wound to the sacrum) Neurological: Denies: headache, weakness, numbness, paresthesias, confusion Endocrine: Denies: fatigue Hematological/Lymphatic: Denies: easy bleeding, easy bruising Allergic/Immunologic: Denies: facial swelling, urticaria Past Medical History - Past Medical History Medical history: Reports: diabetes, hyperlipidemia, hypertension, thyroid disease Surgical history: Reports: no surgical history Psychiatric history: Reports: anxiety, depression - Social History Smoking Status: Former smoker Smokeless Tobacco Status: No Alcohol use: Reports: none Drug use: Reports: none Physical Exam - General Limitations: no limitations General appearance: alert, in no apparent distress - Head Head exam: atraumatic, normocephalic - Eye Eye exam: Present: normal appearance, PERRL, EOMI - ENT ENT exam: normal exam, mucous membranes moist - Neck Neck exam: Present: normal inspection - Chest Chest inspection: Present: normal inspection, symmetric chest wall rise. Absent : tenderness - Respiratory Respiratory exam: Present: normal lung sounds bilaterally. Absent: respiratory distress, wheezes - Cardiovascular Cardiovascular exam: Present: regular rate, normal rhythm - Abdominal Exam Abdominal exam: Present: soft, Non-Tender. Absent: tenderness, distention, guarding, rebound, rigidity - Extremities Exam Extremities exam: Present: other (Skin breakdown at the right lateral ankle, about 12 cm in length, with bandage over top. Surrounding erythema. Open wound to the sacral area, currently packed with some purulent drainage with surrounding erythema) - Expanded Lower Extremity Exam Neurovascular/Tendon exam: Present: normal capillary refill. Absent: pulse deficit, motor deficit, sensory deficit - Neurological Exam Neurological exam: Present: alert, oriented X3, CN II-XII intact - Expanded Neurological Exam Patient oriented to: Present: person, place, time Speech: Present: fluid speech Cranial nerves: EOM function (II, III, IV, ): Normal, facial sensation (V): Normal, facial palsy (VII): Normal, gag reflex (IX): Normal, spinal accessory function (XI): Normal, tongue deviation (XII): Normal Motor strength - LUE: 4/5 Motor strength - RUE: 4/5 Motor strength - LLE: 4/5 Motor strength - RLE: 4/5 Upper motor neuron exam: pronator drift: Absent bilaterally Sensory exam upper extremity: light touch: Normal Sensory exam lower extremity: light touch: Normal Coma Scale Eye Opening: Spontaneous Coma Scale Motor Response: Obeys Commands Coma Scale Verbal Response: Oriented Coma Scale Total: 15 - Psychiatric Psychiatric exam: Present: normal affect, normal mood - Skin Skin exam: Present: warm, dry, intact Course Course Narrative: Plan sepsis workup including, CBC, BMP, wound culture, blood cultures Vital Signs Temperature 98.6 F 07/31/18 10:09 Pulse Rate 62 07/31/18 10:09 Respiratory Rate 18 07/31/18 10:09 Blood Pressure 103/42 07/31/18 10:09 O2 Sat by Pulse Oximetry 98 07/31/18 10:09 Temperature 97.4 F L 07/31/18 15:51 Pulse Rate 65 07/31/18 15:51 Respiratory Rate 14 07/31/18 15:51 Blood Pressure 95/43 07/31/18 15:51 O2 Sat by Pulse Oximetry 99 07/31/18 15:51 Oxygen Delivery Oxygen Delivery Room Air Medical Decision Making - MDM Narrative Medical decision making narrative: Patient is a 77-year-old female presenting from an outside facility to the emergency department with hyperkalemia. The patient also has multiple ulcers, one to the right lateral ankle and one to the sacrum. Patient recently on vancomycin. The patient was seen and evaluated with history obtained also from EMS. There was note of possible confusion while at the intermediate. Patient currently on arrival is alert and oriented 3 GCS of 15, no neurological signs or symptoms. Able to move all cavities with equal sensation throughout. Wounds were examined which shows grade 1 ulcer to the right lateral ankle with surrounding erythema, sacral ulcer is open with packing and purulent drainage. Wound cultures and blood cultures were obtained. Patient was started on vancomycin and Zosyn. EKG revealed ventricular rate of 58 with peak T waves and prolonged VT gave calcium gluconate, insulin, D50 and sodium bicarbonate. Laboratory evaluation revealed creatinine at 2.18 which is severely changed from baseline, GFR is at 22. No known history of kidney disease per patient. Started fluid bolus. Urinalysis shows many leukocytes however does have white blood cell and positive leuk esterase and no nitrate, however has been on recent antibiotics. Urine culture was obtained. Hemoglobin at 10.6, normal white count. Potassium is noted to be at 6.2, sodium 130. Troponin is elevated at 0.44, appears to be at baseline, last observed on May 2018 to be 0.48. EKG does not show acute ischemic changes. At this point in time, patient will be admitted for a KI, hyperkalemia and elevated troponin. Discussed this patient with the hospitalist, Dr. Dooley at 1330, does accept patient. Does request a nephrology consult at this point in time. Spoke with with nephrology, Dr. Pulido, at 1340 states at this time he would like to push fluids, trend potassium, will get repeat potassium at this point in time. States that he would like to hold off on dialysis at this point, will revisit when he consults patient tomorrow. - Medical Records Medical records reviewed: Yes I reviewed the patient's medical records. - Lab Data Lab results reviewed: Yes I reviewed the patient's lab results. Result diagrams: 07/31/18 10:12 07/31/18 14:27 Lab Results 07/31/18 07/31/18 07/31/18 Range/Units 10:12 10:12 10:12 WBC 8.8 (4.3-11.1) K/mcL RBC 3.38 L (3.82-4.97) M/mcL Hgb 10.2 L (11.5-15.4) g/dL Hct 33.3 L (35.3-44.9) % MCV 98.5 (83.0-100.0) fL MCH 30.2 (28.0-33.3) pg MCHC 30.6 L (31.6-35.5) g/dL RDW 14.2 (11.5-14.5) % Plt Count 195 (140-400) K/mcL MPV 10.1 (9.4-12.4) fL Immature Gran % 0.3 (0-4) % Seg Neutrophils % 70.5 % Lymphocytes % 15.6 % Monocytes % 10.1 % Eosinophils % 3.4 % Basophils % 0.1 % Neutrophils # 6.2 (1.6-8.9) K/mcL Lymphocytes # 1.4 (0.6-4.6) K/mcL Monocytes # 0.9 (0.0-1.3) K/mcL Eosinophils # 0.3 (0.0-0.6) K/mcL Basophils # 0.0 (0.0-0.2) K/mcL PT 10.8 (9.4-12.1) Seconds INR 1.0 APTT 26.5 (26.0-36.0) Seconds Sodium 130 L (136-145) mEq/L Potassium 6.2 H (3.5-5.1) mEq/L Chloride 96 L (98-107) mEq/L Carbon Dioxide 30 H (23-29) mEq/L BUN 54 H (8-23) mg/dL Creatinine 2.18 H (0.60-1.20) mg/dL Est GFR ( Amer) 27 L (> 60) Est GFR (Non-Af Amer) 22 L (> 60) BUN/Creatinine Ratio 25 (6-26) Glucose 106 H (70-105) mg/dL Calculated Osmolality 285 (280-300) Lactic Acid (0.5-2.2) mmol/L Calcium 8.1 L (8.6-10.3) mg/dL Phosphorus 6.6 H (2.7-4.5) mg/dL Magnesium 2.1 (1.6-2.6) mg/dL Total Bilirubin 0.4 (0.3-1.0) mg/dL Direct Bilirubin 0.1 (0.0-0.2) mg/dL Indirect Bilirubin 0.3 (0.0-1.2) mg/dL AST 11 L (13-39) Units/L ALT 6 L (7-52) Units/L Alkaline Phosphatase 65 (34-104) Units/L Troponin I 0.44 H* (< 0.04) ng/mL Serum Total Protein 6.6 (6.4-8.9) g/dL Albumin 3.0 L (3.5-5.7) g/dL Globulin 3.6 H (2.4-3.5) g/dL Albumin/Globulin Ratio 0.8 L (1.1-2.2) Urine Color (Yellow) Urine Clarity (Clear) Urine pH (5.0-8.0) pH Units Ur Specific [place] (1.010-1.025) Urine Protein (Neg-Trace) mg/dL Urine Glucose (UA) (Normal) mg/dL Urine Ketones (Negative) mg/dL Urine Blood (Negative) Urine Nitrite (Negative) Urine Bilirubin (Negative) Urine Urobilinogen (Normal) mg/dL Ur Leukocyte Esterase (Negative) Urine Microscopic RBC (0-3) per hpf Urine Microscopic WBC (0-3) per hpf Ur Squamous Epith Cells (None-Few) per lpf Ur Renal Epithelial Cell (None-Few) per hpf Amorphous Sediment (Few) Urine Bacteria (None-Few) per hpf Urine Yeast (None Seen) per hpf Ur Culture Indicated? (NO) 07/31/18 07/31/18 Range/Units 10:24 10:36 WBC (4.3-11.1) K/mcL RBC (3.82-4.97) M/mcL Hgb (11.5-15.4) g/dL Hct (35.3-44.9) % MCV (83.0-100.0) fL MCH (28.0-33.3) pg MCHC (31.6-35.5) g/dL RDW (11.5-14.5) % Plt Count (140-400) K/mcL MPV (9.4-12.4) fL Immature Gran % (0-4) % Seg Neutrophils % % Lymphocytes % % Monocytes % % Eosinophils % % Basophils % % Neutrophils # (1.6-8.9) K/mcL Lymphocytes # (0.6-4.6) K/mcL Monocytes # (0.0-1.3) K/mcL Eosinophils # (0.0-0.6) K/mcL Basophils # (0.0-0.2) K/mcL PT (9.4-12.1) Seconds INR APTT (26.0-36.0) Seconds Sodium (136-145) mEq/L Potassium (3.5-5.1) mEq/L Chloride (98-107) mEq/L Carbon Dioxide (23-29) mEq/L BUN (8-23) mg/dL Creatinine (0.60-1.20) mg/dL Est GFR ( Amer) (> 60) Est GFR (Non-Af Amer) (> 60) BUN/Creatinine Ratio (6-26) Glucose (70-105) mg/dL Calculated Osmolality (280-300) Lactic Acid 0.8 (0.5-2.2) mmol/L Calcium (8.6-10.3) mg/dL Phosphorus (2.7-4.5) mg/dL Magnesium (1.6-2.6) mg/dL Total Bilirubin (0.3-1.0) mg/dL Direct Bilirubin (0.0-0.2) mg/dL Indirect Bilirubin (0.0-1.2) mg/dL AST (13-39) Units/L ALT (7-52) Units/L Alkaline Phosphatase (34-104) Units/L Troponin I (< 0.04) ng/mL Serum Total Protein (6.4-8.9) g/dL Albumin (3.5-5.7) g/dL Globulin (2.4-3.5) g/dL Albumin/Globulin Ratio (1.1-2.2) Urine Color Yellow (Yellow) Urine Clarity Slightly Cloudy A (Clear) Urine pH 5.0 (5.0-8.0) pH Units Ur Specific [place] 1.010 (1.010-1.025) Urine Protein Negative (Neg-Trace) mg/dL Urine Glucose (UA) Normal (Normal) mg/dL Urine Ketones Negative (Negative) mg/dL Urine Blood Moderate H (Negative) Urine Nitrite Negative (Negative) Urine Bilirubin Negative (Negative) Urine Urobilinogen Normal (Normal) mg/dL Ur Leukocyte Esterase Large H (Negative) Urine Microscopic RBC 3-5 H (0-3) per hpf Urine Microscopic WBC 50-100 H (0-3) per hpf Ur Squamous Epith Cells Moderate H (None-Few) per lpf Ur Renal Epithelial Cell Few (None-Few) per hpf Amorphous Sediment Moderate H (Few) Urine Bacteria Many H (None-Few) per hpf Urine Yeast Few H (None Seen) per hpf Ur Culture Indicated? YES A (NO) - Radiology Data Radiology results reviewed: Yes I reviewed the patient's radiology results. - EKG Data EKG #1 EKG attestation: Yes I reviewed and interpreted this EKG. EKG results narrative: EKG performed at 1019, with heart rate of 58, normal regular rhythm, normal axis , VT interval of 226, QRS ration 127, QT 423, QTc 416, PT waves noted, ST elevation in V2, no ST deviation tip showed no T-wave inversions. Overall, normal sinus rhythm with prolonged VT interval and peaked T waves.
[2018-07-31] MEDS ORDERED: Insulin Human Regular 10 UNIT in 0.9 % Sodium Chloride 10 ML IV ONE (10:40)
[2018-07-31] MEDS ORDERED: *HR* Dextrose 50 % in Water (Syg) 50 ML SYRINGE IVP ONE (10:41)
[2018-07-31] MEDS ORDERED: Sodium Bicarbonate 50 MEQ/50 ML VIAL IVP ONE (10:41)
[2018-07-31] MEDS ORDERED: Piperacillin/Tazobactam 3.375 GM in 0.9 % Sodium Chloride Mini Bag 100 ML IVPB ONE (10:51)
[2018-07-31 11:07] LABS: Bilirubin,Urine Negative (Negative); Blood,Urine Moderate (Negative); Clarity,Urine Slightly Cloudy (Clear); Color,Urine Yellow (Yellow); Glucose,Urine (UA) Normal (Normal); Ketones,Urine Negative (Negative); Leukocyte Esterase,Urine Large (Negative); Nitrite,Urine Negative (Negative); Protein,Urine Negative (Neg-Trace); Urobilinogen,Urine Normal (Normal)
[2018-07-31 11:13] LABS: Basophils % 0.1 %; Eosinophils # 0.3 K/mcL (0.0-0.6); Eosinophils % 3.4 %; Hematocrit 33.3 % (35.3-44.9); Hemoglobin 10.2 g/dL (11.5-15.4); Immature Granulocytes % 0.3 % (0-4); Lymphocytes # 1.4 K/mcL (0.6-4.6); Lymphocytes % 15.6 %; Mean Corpuscular HGB Conc 30.6 g/dL (31.6-35.5); Mean Corpuscular Hemoglobin 30.2 pg (28.0-33.3); Mean Corpuscular Volume 98.5 fL (83.0-100.0); Mean Platelet Volume 10.1 fL (9.4-12.4); Monocytes # 0.9 K/mcL (0.0-1.3); Monocytes % 10.1 %; Neutrophils # 6.2 K/mcL (1.6-8.9); Platelet Count 195 K/mcL (140-400); Red Blood Count 3.38 M/mcL (3.82-4.97); Red Cell Distribution Width 14.2 % (11.5-14.5); Segmented Neutrophils % 70.5 %
[2018-07-31 11:18] LABS: WBC,Urine 50-100 per hpf (0-3)
[2018-07-31 11:19] LABS: Amorphous Sediment,Urine Moderate (Few); Bacteria,Urine Many per hpf (None-Few); Renal Epithelial Cells,Urine Few per hpf (None-Few); Yeast,Urine Few per hpf (None Seen)
[2018-07-31 11:19] LABS: Prothrombin Time 10.8 Seconds (9.4-12.1)
[2018-07-31 11:20] LABS: Squamous Epithelial Cell,Urine Moderate per lpf (None-Few)
[2018-07-31 11:21] LABS: Activated Partial Thrombo Time 26.5 Seconds (26.0-36.0)
[2018-07-31 11:34] LABS: Albumin/Globulin Ratio 0.8 (1.1-2.2); Bilirubin,Direct 0.1 mg/dL (0.0-0.2); Bilirubin,Indirect 0.3 mg/dL (0.0-1.2); Bilirubin,Total 0.4 mg/dL (0.3-1.0); Calcium 8.1 mg/dL (8.6-10.3); Globulin 3.6 g/dL (2.4-3.5); Magnesium 2.1 mg/dL (1.6-2.6); Phosphorous 6.6 mg/dL (2.7-4.5); Potassium 6.2 mEq/L (3.5-5.1); Total Protein 6.6 g/dL (6.4-8.9)
[2018-07-31 11:38] LABS: Troponin I 0.44 ng/mL (< 0.04)
[2018-07-31] MEDS ORDERED: 0.9 % Sodium Chloride 1,000 ML IVC ONE (11:38)
[2018-07-31] MEDS ORDERED: Aspirin Enteric Coated 325 MG Tablet PO ONE (12:23)
--- NOTE | 2018-07-31 13:31 | Electrocardiograph Report ---
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
[2018-07-31] MEDS: 0.9 % Sodium Chloride 1,000 ML IVC SCH (16:46)
[2018-07-31 18:24] LABS: Calcium 8.4 mg/dL (8.6-10.3); Potassium 5.9 mEq/L (3.5-5.1)
[2018-07-31] MEDS ORDERED: Naloxone 0.4 MG/ML INJ IVP PRN (18:49)
[2018-07-31] MEDS ORDERED: Dextrose Gel 15 GM/37.5 ML TUBE PO PRN ×2 (20:28)
[2018-07-31] MEDS ORDERED: D5% in Water 1,000 ML IVC PRN (20:28)
[2018-07-31] MEDS ORDERED: *HR* Dextrose 50 % in Water (Syg) 50 ML SYRINGE IVP PRN (20:28)
[2018-07-31] MEDS: Gabapentin 300 MG CAPSULE PO SCH (21:36)
[2018-07-31] MEDS: Nystatin POWDER 30 GM BOTTLE TP SCH (21:51)
--- NOTE | 2018-08-01 00:43 | Internal Med History&Physical ---
Date of Encounter: 07/31/18 Time of Encounter: 18:00 Internal Medicine - H&P: HPI Chief complaint: Abnormal test results (increased creatinine and potassium) Admitted From: Long-term Nursing Facility Plans for Post Hospital Care: Transfer [facility] Facility History of present illness: This is a 77-year-old woman is a resident of a detention facility. She has been bedbound for at least several months due to her medical problems/ debility, It was today morning when she had a routine blood work. A little bit later she was discovered to have increased creatinine and high potassium (6.8). Repeat his potassium in our emergency room was 6.2. The patient got emergency at the treatments for hyperkalemia. The patient has been feeling good 4 weeks/months. She has not experienced any chest pain or difficulty breathing recently. Denies abdominal pain, nausea and vomiting. Denies decreased intake of fluids. Denies fever and chills. One can see that she was taking the lisinopril, spironolactone, furosemide and potassium chloride in the [facility]. She has been through to the foot diabetic foot ulcer; on the vancomycin and Zosyn. She does have long-standing type 2 diabetes mellitus, hypertension, hyperlipidemia and hypothyroidism. REVIEW OF SYSTEMS: All 14 organ systems were reviewed by me with the patient. Positive and pertinent negative findings are listed above. The rest of organ systems is negative. PHYSICAL EXAM: Skin: Free of rash and discoloration. Eyes: Sclera is white. There is no discharge from eyes. ENMT: Oral/pharyngeal mucosa is normal in appearance. There is no discharge from nose or ears. Respiratory: Normal breath sounds with no crackles and wheezes bilaterally. CV: Heart is regular with no gallop or murmur. GI: Abdomen is flat and soft with no palpable mass or visceromegaly. : There is no tenderness in patient's flanks bilaterally. Neuro exam: He has good strength in upper and lower extremities. He has normal eye movements. Psychiatric: He has normal affect. His thought process is appropriate to the situation. Examination of her right foot wound: deferred to wound care nurse. A/P: Severe hyperkalemia with acute kidney injury. She got emergency treatments in the emergency department. Her last potassium was 5.9. We will give her 2 L of IV fluid I will keep her lisinopril, spironolactone, furosemide and potassium chloride on hold. Foot ulcer, right foot. I will continue treatments with IV vancomycin/IV Zosyn. Hypertension. Her blood pressure is on low side at this time. I will keep her antihypertensives on hold. Her other problems are stable/under control. Past Med Surg Social Fam HX - Past Medical History Medical history: arthritis, diabetes, hyperlipidemia, hypertension, thyroid disease Additional medical history: OBESITY, neuropathy, chronic LE edema Psychiatric history: anxiety, depression - Past Surgical History Surgical History: no surgical history Additional surgical history: skin cancer surgery in 1997. - Social History Smoking Status: Former smoker Smokeless Tobacco Status: No Alcohol use: none Drug use: none - Family History Mother Adopted: No Family Member Ethnicity: Non- Living Status: Hx Family Cardiac Disorders: Yes Hx Family Respiratory Disorders: No Hx Family Cancer: Yes Hx Family GI Disorders: No Hx Family Endocrine Disorder: No Hx Family Neuromuscular Disorders: No Hx Family Neurologic Disorders: No Hx Family HEENT Disorders: No Hx Family Autoimmune Disorders: No Father Adopted: No Family Member Ethnicity: Non- Living Status: Hx Family Cardiac Disorders: Yes Hx Family Respiratory Disorders: No Hx Family Cancer: No Hx Family GI Disorders: No Hx Family Endocrine Disorder: No Hx Family Neuromuscular Disorders: No Hx Family Neurologic Disorders: No Hx Family HEENT Disorders: No Hx Family Autoimmune Disorders: No Internal Medicine - H&P: Meds Aspirin Enteric Coated [Aspirin EC] 81 mg PO DAILY 05/16/18 [History] Cholecalciferol (D-3) [Vitamin D] 1,000 unit PO DAILY 05/16/18 [History] Furosemide [Lasix] 40 mg PO BID 05/16/18 [History] Gabapentin [Neurontin] 300 mg PO BID 05/16/18 [History] Levothyroxine [Synthroid] 150 mcg PO DAILY 05/16/18 [History] Multivitamin [One Daily Multivitamin] 1 tab PO DAILY 05/16/18 [History] Potassium Chloride [Klor-Con 10] 10 meq PO BID 05/16/18 [History] Simvastatin [Zocor] 20 mg PO HS 05/16/18 [History] DiphenhydraMINE [Benadryl] 25 mg PO Q6HR PRN capsule 05/19/18 [Rx] Vancomycin [Vancocin] 1,000 mg IV DAILY 06/20/18 [History] Acetaminophen [Tylenol] 650 mg PO Q6HR PRN 07/31/18 [History] Lisinopril [Zestril] 10 mg PO DAILY 07/31/18 [History] Spironolactone [Aldactone] 25 mg PO DAILY 07/31/18 [History] Whey Protein Isolate [Unjury] 2 pack PO BID 07/31/18 [History] 3 Allergy/AdvReac Type Severity Reaction Status Date / Time Sulfa (Sulfonamide Allergy Rash Verified 07/31/18 11:38 Antibiotics) - Constitutional Vitals: Temp Pulse Resp BP Pulse Ox 98.6 F 76 14 96/58 99 08/01/18 00:09 08/01/18 00:09 08/01/18 00:09 08/01/18 00:09 08/01/18 00:09 General appearance: Present: A&O X 3, morbidly obese, answers questions appropriately Exam: xx Internal Med - H&P Results - Labs CBC & Chem 7: 08/01/18 04:52 08/02/18 06:13 Labs: BMP 07/31/18 17:47 Sodium 134 L Potassium 5.9 H Chloride 101 Carbon Dioxide 30 H BUN 50 H Creatinine 1.66 H Glucose 95 Calcium 8.4 L - Assessment and plan (1) Hyperkalemia Current Visit: Yes Status: Acute (2) LUBNA (acute kidney injury) Current Visit: Yes Status: Acute (3) Pressure ulcer of right leg, stage 3 Current Visit: No Status: Chronic Assessment and plan: On Vanc and Zosyn for several days; will continue.. - Time Spent With Patient Total time spent is greater than 50% in coordination of care (as documented) at patient's floor/unit and/or counseling patient: Greater than 35 minutes - VTE Deep Vein Thrombosis/Pulmonary Embolism Present on Admission: No
[2018-08-01] MEDS: Insulin LISPRO 300 UNITS/3 ML VIAL SQ SCH ×5 (01:33→23:02)
[2018-08-01 05:13] LABS: Basophils % 0.1 %; Eosinophils # 0.2 K/mcL (0.0-0.6); Eosinophils % 2.6 %; Hematocrit 30.8 % (35.3-44.9); Hemoglobin 9.6 g/dL (11.5-15.4); Immature Granulocytes % 0.4 % (0-4); Lymphocytes # 0.8 K/mcL (0.6-4.6); Lymphocytes % 9.6 %; Mean Corpuscular HGB Conc 31.2 g/dL (31.6-35.5); Mean Corpuscular Hemoglobin 30.2 pg (28.0-33.3); Mean Corpuscular Volume 96.9 fL (83.0-100.0); Monocytes # 0.9 K/mcL (0.0-1.3); Monocytes % 10.1 %; Neutrophils # 6.6 K/mcL (1.6-8.9); Platelet Count 170 K/mcL (140-400); Red Blood Count 3.18 M/mcL (3.82-4.97); Segmented Neutrophils % 77.2 %
[2018-08-01 05:33] LABS: Calcium 8.4 mg/dL (8.6-10.3); Magnesium 2.1 mg/dL (1.6-2.6); Potassium 5.8 mEq/L (3.5-5.1)
[2018-08-01] MEDS: 0.9 % Sodium Chloride 1,000 ML IVC SCH (05:39)
[2018-08-01] MEDS: *HR* Heparin 5,000 UNIT/ML VIAL SQ SCH ×3 (05:40→21:16)
[2018-08-01 07:06] LABS: Estimated Average Glucose 128 mg/dl; Hemoglobin A1C 6.1 %
[2018-08-01] MEDS: Cholecalciferol (D-3) 1,000 UNIT TABLET PO SCH (09:21)
[2018-08-01] MEDS: Aspirin Enteric Coated 81 MG Tablet PO SCH (09:21)
[2018-08-01] MEDS: Gabapentin 300 MG CAPSULE PO SCH ×2 (09:21→21:16)
[2018-08-01] MEDS: Nystatin POWDER 30 GM BOTTLE TP SCH ×3 (09:22→22:57)
[2018-08-01 10:06] LABS: Protein/Creatinine Ratio,Urine 0.41 mg/mg (0.00-0.20)
--- NOTE | 2018-08-01 10:10 | Nephrology Consult Note ---
Date of Encounter: 08/01/18 Time of Encounter: 08:45 Assessment and Plan (1) Acute kidney injury Current Visit: Yes Status: Acute Acute kidney injury, likely secondary to nephrotoxic agents Patient presented with elevated serum creatinine 2.18, elevated potassium 6.2 She has been on several nephrotoxic agents including vancomycin which is apparently been on for 2 weeks In addition of this, the patient has been on lisinopril and Aldactone as well as Klor-Con 10 twice a day These together likely explain a large majority of the patient's LUBNA, however we will do a workup to ensure that there is no underlying problem in addition of this Plan -Retroperitoneal ultrasound -Urine protein creatinine ratio -Continue to monitor daily renal function with BMP -Unless necessitated by infectious agent, try to avoid nephrotoxic agents such as vancomycin -Suspect that some edema is secondary to adiposity nature of dependency. The patient does not move and it is to be expected that there will be some dependent edema as a result. Use of diuretics may be reconsidered in this patient for as-needed basis. Regardless, the patient should not be continued on Aldactone at time of discharge due to danger of severe hyperkalemia (2) Hyperkalemia Current Visit: Yes Status: Acute Severe hyperkalemia, 6.2 on arrival Patient's serum potassium has now dropped to 5.8 Continues to trend down on its own with IV fluids and improvement of kidney function At this time we will continue to monitor, do not necessarily recommend Kayexalate due to the patient's size and risk of worsening infection with poor mobility and diarrhea that is induced with introduction of Kayexalate Pending BMP tomorrow, may require introduction of this medication (3) Diabetes mellitus Current Visit: Yes Status: Acute Diabetes mellitus, appears to be intact control. Hemoglobin A1c 6.1 Management per primary team Qualifiers: Diabetes mellitus type: type 2 Diabetes mellitus detention insulin use: without pantograph operator use Diabetes mellitus complication status: with skin complications Diabetes mellitus complication detail: with other skin ulcer Qualified Code(s): E11.622 - Type 2 diabetes mellitus with other skin ulcer (4) Pressure ulcer of right leg, stage 3 Current Visit: No Status: Chronic Pressure ulcer of the right leg, management per wound care Recommend avoidance of nephrotoxic agents such as vancomycin and this necessitated by cultures and worsening infection (5) Anemia Current Visit: Yes Status: Chronic Anemia, appears to be chronic Unknown etiology. Possibly multifactorial I will check iron profile in the morning. B12 and folate normal on last visit Qualifiers: Anemia type: unspecified type Qualified Code(s): D64.9 - Anemia, unspecified (6) UTI (urinary tract infection) Current Visit: Yes Status: Acute Apparent urinary tract infection demonstrated on UA on arrival Management per primary team Qualifiers: Urinary tract infection type: catheter-associated UTI Indwelling urinary catheter type: indwelling urethral catheter Encounter type: initial encounter Qualified Code(s): T83.511A - Infection and inflammatory reaction due to indwelling urethral catheter, initial encounter; N39.0 - Urinary tract infection , site not specified History of Present Illness - Reason for Consult Consult date: 07/31/18 Acute Kidney Injury Requesting physician: Jaycee Franks - Chief Complaint Hyperkalemia - History of Present Illness Ms. Woody is a 77-year-old woman with history of diabetes mellitus, hypertension, hyperlipidemia, hypothyroidism and severe diabetic foot ulcer is been receiving aggressive wound care who presented to [facility] ED from SNF due to elevated potassium LUBNA on routine labs. The patient has apparently a long-term resident of a [facility], and apparently is having some altered mental status. She presented to receive routine labs and it was noted that she had a potassium of 6.8. She was taken to the ED for workup of this acute kidney injury and nephrology was consulted. for assistance in management. The patient apparently had no acute complaints at that time, and today that remained to be the case. It is noted that the patient has had several presentations in the past several months for repeated concerns about severe diabetic foot ulcers as well as an STEMI/CHF, pneumonia and cellulitis. The patient was apparently on Aldactone, Klor-Con 10 twice a day, lisinopril, Lasix 40 twice a day, and IV vancomycin from what appears to be 07/18/18. She was started on IV fluids and also received vancomycin and Zosyn. Serial BMPs demonstrated decrease in serum creatinine as well as a decrease and overall potassium. Significantly, the patient cannot really give a reliable history at this time. Although she is alert and oriented 3, she does not have a good recollection of what brought her to the hospital. She seemed to have no strong contextual awareness at this time. She does mention that she has never had any kidney disease to her knowledge, however. She also mentions that her knowledge she has never seen a kidney specialist before. She does not know of any family history of kidney disease either. Past Med Surg Social Fam HX - Past Medical History Medical history: arthritis, diabetes, hyperlipidemia, hypertension, thyroid disease Additional medical history: OBESITY, neuropathy, chronic LE edema Psychiatric history: anxiety, depression - Past Surgical History Surgical History: no surgical history Additional surgical history: skin cancer surgery in 1997. - Social History Smoking Status: Former smoker Smokeless Tobacco Status: No Alcohol use: none Drug use: none - Family History Mother Adopted: No Family Member Ethnicity: Non- Living Status: Hx Family Cardiac Disorders: Yes Hx Family Respiratory Disorders: No Hx Family Cancer: Yes Hx Family GI Disorders: No Hx Family Endocrine Disorder: No Hx Family Neuromuscular Disorders: No Hx Family Neurologic Disorders: No Hx Family HEENT Disorders: No Hx Family Autoimmune Disorders: No Father Adopted: No Family Member Ethnicity: Non- Living Status: Hx Family Cardiac Disorders: Yes Hx Family Respiratory Disorders: No Hx Family Cancer: No Hx Family GI Disorders: No Hx Family Endocrine Disorder: No Hx Family Neuromuscular Disorders: No Hx Family Neurologic Disorders: No Hx Family HEENT Disorders: No Hx Family Autoimmune Disorders: No Medications and Allergies Aspirin Enteric Coated [Aspirin EC] 81 mg PO DAILY 05/16/18 [History] Cholecalciferol (D-3) [Vitamin D] 1,000 unit PO DAILY 05/16/18 [History] Furosemide [Lasix] 40 mg PO BID 05/16/18 [History] Gabapentin [Neurontin] 300 mg PO BID 05/16/18 [History] Levothyroxine [Synthroid] 150 mcg PO DAILY 05/16/18 [History] Multivitamin [One Daily Multivitamin] 1 tab PO DAILY 05/16/18 [History] Potassium Chloride [Klor-Con 10] 10 meq PO BID 05/16/18 [History] Simvastatin [Zocor] 20 mg PO HS 05/16/18 [History] DiphenhydraMINE [Benadryl] 25 mg PO Q6HR PRN capsule 05/19/18 [Rx] Vancomycin [Vancocin] 1,000 mg IV DAILY 06/20/18 [History] Acetaminophen [Tylenol] 650 mg PO Q6HR PRN 07/31/18 [History] Lisinopril [Zestril] 10 mg PO DAILY 07/31/18 [History] Spironolactone [Aldactone] 25 mg PO DAILY 07/31/18 [History] Whey Protein Isolate [Unjury] 2 pack PO BID 07/31/18 [History] 3 Allergy/AdvReac Type Severity Reaction Status Date / Time Sulfa (Sulfonamide Allergy Rash Verified 07/31/18 11:38 Antibiotics) Review of Systems All Systems review (narrative): Constitutional: Denies fevers, chills, weight loss. Admits to generalized fatigue and weakness Head/Neck: Denies SALDAÑA, neck stiffness EENT: Denies vision changes/blurriness, rhinorrhea, congestion, sore throat CVS: Denies chest pain, palpitations, [place], orthopnea, edema, PND Pulm: Denies SOB, cough, sputum, hemoptysis, wheezing GI: Denies abdominal pain, nausea, vomiting, diarrhea, constipation, melena, hematemasis : Denies dysuria, increased frequency, urgency, hematuria Heme: Denies ease of bleeding or bruising MSK: Denies joint pain, limited ROM Skin: Denies rashes, ulcers, color changes Neuro: Denies SALDAÑA, paresthesias, focal deficits, ataxia Exam - Vital Signs Vital signs: Initial Vital Signs Temp Pulse Resp BP Pulse Ox 98.6 F 62 18 103/42 98 07/31/18 10:09 07/31/18 10:09 07/31/18 10:09 07/31/18 10:09 07/31/18 10:09 Vital Signs - Last 8 Hours Temp Pulse Resp BP Pulse Ox 08/01/18 07:32 98.3 F 73 20 93/57 91 08/01/18 04:01 98.6 F 65 16 97/60 94 Intake and Output 07/31/18 08/01/18 08/01/18 23:59 07:59 15:59 Intake Total 0 / 0 2700 / 2700 120 / 120 Output Total 775 / 775 850 / 850 Balance -775 / -775 1850 / 1850 120 / 120 Intake: IV Fluids 2500 / 2500 0.9 % Sodium Chloride 1,000 ML 1000 / 1000 @ 75 mls/hr IVC .[id number] Rx #:[id number] Oral 0 / 0 200 / 200 120 / 120 Output: Catheter 775 / 775 850 / 850 Other: Meal Breakfast Percent of Meal Consumed 85% Weight 131.5 kg Blood Glucose* 77 94 Patient Weight 08/01/18 23:59 Weight 131.5 kg - General Appearance Exam: Gen: Vitals noted. Elderly, obese appearing woman. No acute distress. HEENT: Normocephalic, atraumatic Neck: Supple. No adenopathy. Cardiac: RRR, no murmur, +S1/S2 Pulmonary: Poor inspiratory effort. CTA anteriorly bilaterally, no wheezes, rales or rhonchi, equal chest expansion. Patient will not lean forward to allow for posterior auscultation Abdomen: soft, nontender, no guarding Extremities: There is trace edema bilaterally in the lower extremities. nontender calf, no cyanosis or clubbing. Right calf is wrapped at site of the diabetic ulcer. There is marked adiposity and deep tendon edema noted in all 4 extremity Neuro: moves all extremities but with minimal effort or willingness, no focal deficits. A&Ox3 however appears to have some confusion Results - Lab Results 08/01/18 04:52 08/01/18 04:52 Most recent lab results Calcium 8.4 mg/dL (8.6-10.3) L 08/01/18 04:52 Phosphorus 6.6 mg/dL (2.7-4.5) H 07/31/18 10:12 Magnesium 2.1 mg/dL (1.6-2.6) 08/01/18 04:52 Urine Creatinine 71 mg/dL 08/01/18 09:10 Urine Total Protein 29 mg/dL (1-14) H 08/01/18 09:10 Consult Discharge Plan - Plan Referrals: Jamila Betts, JEWELRY ESTIMATOR [Primary Care Provider] -
--- NOTE | 2018-08-01 16:27 | Internal Med Progress Note ---
Hospitalist Progress Note - Encounter Date of Encounter: 08/01/18 Time of Encounter: 16:24 - Subjective Interval History: Pt reports having RLE diabetic foot ulcer. She denies fever, chills, N/V, constipation or diarrhea. She denies CP or SOB. - Exam Vitals: Temp Pulse Resp BP Pulse Ox 98.0 F 72 19 110/64 96 08/01/18 14:38 08/01/18 14:38 08/01/18 14:38 08/01/18 14:38 08/01/18 14:38 Exam: PHYSICAL EXAM: GEN morbidly obese. sedentary life style. Skin: RLE cellulitis and diabetic foot ulcer likely stage 3. Sacral wound. Eyes: Sclera is white. There is no discharge from eyes. ENMT: Oral/pharyngeal mucosa is normal in appearance. There is no discharge from nose or ears. Respiratory: Normal breath sounds with no crackles and wheezes bilaterally. CV: Heart is regular with no gallop or murmur. GI: Abdomen is flat and soft with no palpable mass or visceromegaly. : There is no tenderness in patient's flanks bilaterally. Neuro exam: He has good strength in upper and lower extremities. He has normal eye movements. Psychiatric: He has normal affect. His thought process is appropriate to the situation. Extremity. RLE cellulitis and diabetic foot ulcer likely stage 3. - Assessment and Plan (1) Acute kidney injury Current Visit: Yes Status: Acute Assessment and Plan: Nephrology consulted to see. LUBNA multifactorial. Pt had been on Lisinopril, aldactone, and more recently on Vancomycin. Urine analysis on admission was abnormal and likely positive for UTI. Awaiting urine culture and sensitivity. (2) Hypertension Current Visit: No Status: Chronic Assessment and Plan: on Lisinopril here but on hodl due to LUBNA. BP has been stable. (3) Pressure ulcer of right leg, stage 3 Current Visit: No Status: Chronic Assessment and Plan: wound care consult. Pt had been on Vancomycin and Zosyn for about 2 weeks. HAs poor wound healing due to underlying hx of diabetes. (4) Pressure ulcer, buttock, right, unstageable Current Visit: No Status: Acute Assessment and Plan: consulting wound care nurse. (5) Hyperkalemia Current Visit: Yes Status: Acute Assessment and Plan: Severe hyperkalemia 6.2 on arrival. Patient's serum potassium has now dropped to 5.8. Continues to trend down on its own with IV fluids and improvement of kidney function. Given one time dose kayexalate. Will check K potassium level BM. (6) Diabetes mellitus Current Visit: Yes Status: Acute Assessment and Plan: Glucose controlled. Hgb A1c 6.1. DVT Prophylaxis: Heparin - Summary of Assessment and Plan Summary of Assessment and Plan: This is a 77-year-old woman is a [facility]. She has been bedbound for at least several months due to her medical problems/ debility, It was today morning when she had a routine blood work. A little bit later she was discovered to have increased creatinine and high potassium (6.8). - Time Spent with Patient Total time spent is greater than 50% in coordination of care (as documented) at patient's floor/unit and/or counseling patient: 25 - 35 minutes Plan of Care Discussed with: patient Internal Medicine: Result - Labs CBC & Chem 7: 08/01/18 04:52 08/01/18 04:52 Labs: Short CBC 08/01/18 Range/Units 04:52 WBC 8.5 (4.3-11.1) K/mcL Hgb 9.6 L (11.5-15.4) g/dL Hct 30.8 L (35.3-44.9) % Plt Count 170 (140-400) K/mcL Neutrophils # 6.6 (1.6-8.9) K/mcL BMP 07/31/18 08/01/18 17:47 04:52 Sodium 134 L 136 Potassium 5.9 H 5.8 H Chloride 101 103 Carbon Dioxide 30 H 29 BUN 50 H 43 H Creatinine 1.66 H 1.29 H Glucose 95 90 Calcium 8.4 L 8.4 L - ABG Interpretation ABG results: PT/INR, D-dimer PT 10.8 Seconds (9.4-12.1) 07/31/18 10:12 - Impressions Impressions Retroperitoneum Ultrasound 08/01/18 12:30 IMPRESSION: Unremarkable ultrasound of the kidneys and urinary bladder. Right adrenal nodule measuring up to 4.5 cm, incompletely characterized on ultrasound. Recommend dedicated CT or MRI. D/ / 08/01/2018 14:11:20 Daja Long MD / [place] Interpreting Provider: Daja Long MD - VTE Deep Vein Thrombosis/Pulmonary Embolism Present on Admission: No Consult Discharge Plan - Plan Referrals: Jamila Betts, METALLURGIST PROCESS [Primary Care Provider] - (2) Hypertension Qualifiers: Hypertension type: essential hypertension Qualified Code(s): I10 - Essential (primary) hypertension (6) Diabetes mellitus Qualifiers: Diabetes mellitus type: type 2 Diabetes mellitus prison insulin use: without regional intermodal truck driver use Diabetes mellitus complication status: with skin complications Diabetes mellitus complication detail: with other skin ulcer Qualified Code(s): E11.622 - Type 2 diabetes mellitus with other skin ulcer
[2018-08-02] MEDS: *HR* Heparin 5,000 UNIT/ML VIAL SQ SCH ×3 (06:25→23:59)
[2018-08-02 06:46] LABS: % Iron Saturation 18 % (15-50); Iron 46 mcg/dL (50-170); Transferrin 182 mg/dL (203-362)
[2018-08-02 07:05] LABS: Ferritin 82 ng/mL (10-120)
[2018-08-02] MEDS: Insulin LISPRO 300 UNITS/3 ML VIAL SQ SCH ×4 (08:10→23:54)
[2018-08-02] MEDS ORDERED: cefTRIAXone 1,000 MG in Water for inj. (sterile) 20 ML 10 ML IVP SCH (09:00)
[2018-08-02 09:34] LABS: BUN/Creatinine Ratio 34 (6-26); Blood Urea Nitrogen 29 mg/dL (8-23); Calcium 8.6 mg/dL (8.6-10.3); Carbon Dioxide 28 mEq/L (23-29); Chloride 103 mEq/L (98-107); Glucose 91 mg/dL (70-105); Magnesium 1.9 mg/dL (1.6-2.6); Osmolality,Calculated 289 (280-300); Potassium 4.8 mEq/L (3.5-5.1); Sodium 137 mEq/L (136-145); eGFR For Non-African Americans > 60 (> 60)
[2018-08-02] MEDS: Gabapentin 300 MG CAPSULE PO SCH ×2 (09:39→23:58)
[2018-08-02] MEDS: Aspirin Enteric Coated 81 MG Tablet PO SCH (09:39)
[2018-08-02] MEDS: Cholecalciferol (D-3) 1,000 UNIT TABLET PO SCH (09:39)
[2018-08-02] MEDS: Nystatin POWDER 30 GM BOTTLE TP SCH ×3 (09:40→23:59)
[2018-08-02] MEDS: Gentamicin Oint 15 GM TUBE TP SCH (13:45)
--- NOTE | 2018-08-02 13:48 | Nephrology Progress Note ---
Date of Encounter: 08/02/18 Time of Encounter: 09:00 - Assessment and Plan (1) Acute kidney injury Current Visit: Yes Status: Acute Acute kidney injury, nonoliguric and prerenal in nature likely secondary to nephrotoxic agents Significantly improved compared to yesterday, serum creatinine down to 0.85 Patient serum potassium has also dropped to 4.8 after only one dose of Kayexalate yesterday The patient had a urine output of 3500 mL yesterday and 2049 today Retroperitoneal ultrasound did not demonstrate any obstructive uropathy but did show incidental adrenal nodule which may require outpatient follow-up Recommendation -Continue to avoid nephrotoxic agents as able -Consider need for diuretics, patient may have chronic edema secondary to dependency. She does not have significant movement and has marked adiposity -Nephrology will sign off at this time. Please call for any further questions or concerns. Thank you for involving us in the care of this patient! (2) Hyperkalemia Current Visit: Yes Status: Acute Severe hyperkalemia on presentation, secondary to AK I which has not resolved Patient's potassium is now returning to normal Recommend discontinuing Klor-Con on discharge Follow-up BMP in 1 week (3) Diabetes mellitus Current Visit: Yes Status: Acute Diabetes mellitus, appears to be intact control. Hemoglobin A1c 6.1 Management per primary team Qualifiers: Diabetes mellitus type: type 2 Diabetes mellitus long term care pharmacist insulin use: without group home use Diabetes mellitus complication status: with skin complications Diabetes mellitus complication detail: with other skin ulcer Qualified Code(s): E11.622 - Type 2 diabetes mellitus with other skin ulcer (4) Pressure ulcer of right leg, stage 3 Current Visit: No Status: Chronic Pressure ulcer of the right leg, management per wound care Recommend avoidance of nephrotoxic agents such as vancomycin and this necessitated by cultures and worsening infection (5) Anemia Current Visit: Yes Status: Chronic Anemia, appears to be chronic Unknown etiology. Possibly multifactorial I will check iron profile in the morning. B12 and folate normal on last visit Qualifiers: Anemia type: unspecified type Qualified Code(s): D64.9 - Anemia, unspecified (6) UTI (urinary tract infection) Current Visit: Yes Status: Acute Apparent urinary tract infection demonstrated on UA on arrival Management per primary team Qualifiers: Urinary tract infection type: catheter-associated UTI Indwelling urinary catheter type: indwelling urethral catheter Encounter type: initial encounter Qualified Code(s): T83.511A - Infection and inflammatory reaction due to indwelling urethral catheter, initial encounter; N39.0 - Urinary tract infection , site not specified Subjective Principal diagnosis: Hyperkalemia Interval history: The patient is seen and examined at bedside, she is resting comfortably with no acute complaints this morning. Objective - Vital Signs Vital signs: Vital Signs Temp Pulse Resp BP Pulse Ox 08/02/18 11:51 97.7 F 67 16 122/68 98 08/02/18 07:27 98.0 F 73 16 125/69 95 08/02/18 02:13 98.6 F 78 16 90/54 95 08/01/18 23:34 98.5 F 67 15 103/61 96 08/01/18 19:48 98.7 F 63 16 90/54 95 08/01/18 14:38 98.0 F 72 19 110/64 96 Intake and Output 08/01/18 08/02/18 08/02/18 23:59 07:59 15:59 Intake Total 1640 / 1640 0 / 0 360 / 360 Output Total 1949 Balance -310 / -310 -2049 / -2049 360 / 360 Intake: IV Fluids 1000 / 1000 Oral 640 / 640 0 / 0 360 / 360 Output: Catheter 1949 Other: Meal Dinner Breakfast Percent of Meal Consumed 75% 100% Stool Size Moderate Stool Consistency soft formed Stool Color Brown # Bowel Movements 1 Weight 131 kg Blood Glucose* 112 87 181 Patient Weight 08/02/18 23:59 Weight 131 kg - General Appearance Exam: Gen: Vitals noted. Elderly, obese appearing woman. No acute distress. HEENT: Normocephalic, atraumatic Neck: Supple. No adenopathy. Cardiac: RRR, no murmur, +S1/S2 Pulmonary: Poor inspiratory effort. CTA anteriorly bilaterally, no wheezes, rales or rhonchi, equal chest expansion. Patient will not lean forward to allow for posterior auscultation Abdomen: soft, nontender, no guarding Extremities: There is trace edema bilaterally in the lower extremities. nontender calf, no cyanosis or clubbing. Right calf is wrapped at site of the diabetic ulcer. There is marked adiposity and deep tendon edema noted in all 4 extremity Neuro: moves all extremities but with minimal effort or willingness, no focal deficits. A&Ox3 however appears to have some confusion which is improved compared to yesterday - Lab 08/01/18 04:52 08/02/18 06:13 Most recent lab results Calcium 8.6 mg/dL (8.6-10.3) 08/02/18 06:13 Phosphorus 6.6 mg/dL (2.7-4.5) H 07/31/18 10:12 Magnesium 1.9 mg/dL (1.6-2.6) 08/02/18 06:13 Urine Creatinine 71 mg/dL 08/01/18 09:10 Urine Total Protein 29 mg/dL (1-14) H 08/01/18 09:10 - VTE Deep Vein Thrombosis/Pulmonary Embolism Present on Admission: No Consult Discharge Plan - Plan Referrals: Jamila Betts, PLUMBING AND HEATING MECHANIC [Primary Care Provider] -
--- NOTE | 2018-08-02 17:29 | Infectious Disease Consult ---
Date of Encounter: 08/02/18 Time of Encounter: 17:22 Assessment and Plan (1) Cellulitis Status: Acute Assessment and plan: started unasyn add doxycycline duration of treatment depends on clinical picture mointor labs and for drug toxicity Qualifiers: Site of cellulitis: extremity Site of cellulitis of extremity: lower extremity Laterality: right Qualified Code(s): L03.115 - Cellulitis of right lower limb (2) Allergy to antibiotic Status: Acute Assessment and plan: Allergies to sulfa. Exact reaction not known (3) Diabetes mellitus type 2 in obese Status: Acute (4) Pressure ulcer of right ankle, unstageable Status: Chronic (5) Acute kidney injury Status: Acute (6) Hyperkalemia Status: Acute (7) Decubital ulcer Status: Chronic Assessment and plan: it does not appear frankly infected if deep infection is a concern, get CT pelvis check inflammatory markers including ESR and CRP I would start unasyn since patient also has a lower exteremity cellulitis based on CT findings and inflammatory markers we will make further recommendations in the mean time, I appreciate surgery recommendations. Qualifiers: Pressure injury location: buttock Pressure injury stage: unspecified pressure injury stage Laterality: unspecified laterality Qualified Code(s): L89.309 - Pressure ulcer of unspecified buttock, unspecified stage Infectious Disease HPI - Data of Consult Patient: new to practice Consult date: 08/02/18 Requesting Physician: Jaden Gonzales Primary Care Provider: Jamila Betts CNP - Consult Narrative Reason for consult: "Acinetobacter multidrug resistant cultures wound to buttock wound" History of present illness: Ms. Meyers is a 77 year old female Patient is 77-year-old woman with past medical history mentioned below including diabetes mellitus type 2, morbid obesity with a BMI of 51, hypertension, hyperlipidemia, arthritis and thyroid disease who was transferred to [place] from long-term facility on July 31 with abnormal test results including increased creatinine and potassium. We are consulted today for multidrug resistant organism Acinetobacter baumanni in the buttock wound. Most of this information was taken from medical records since the patient is not a good historian. Apparently patient who is bedridden due to failure to thrive and weakness has a decubitus ulcer on the foot and unstageable buttock ulcer. Exactly when these showed up and how long she has had them is not clear. Patient was admitted though for acute kidney injury and hyperkalemia. Her admitting BUN was 50 creatinine was 1.66 and potassium of 6.3. Apparently a swab culture was obtained of the buttock wound and it grew Acinetobacter multidrug resistant with only susceptibility to Unasyn. Keep in mind patient is allergic to sulfa. Since admission, patient has been afebrile, no tachycardia if anything she had episodes of bradycardia no tachypnea and hemodynamically stable. Presenting labs revealed a WBC of 8.8 with normal differential no bands. Patient was also noted to have a troponin leak with the peak of 0.48. A urinalysis revealed large leukocyte esterase pyuria and moderate epithelial cells. The buttock culture grew Acinetobacter baumanni there was only susceptible to Unasyn and the urine culture is showing yeast species. Today patient tells me that she feels okay has no chest pain no shortness of breath no cough. She has good appetite. No urinary symptoms and she has a Steel catheter. She does have an unstageable pubis ulcer on the buttock and also has an ulcer on the right lower extremity with what appears to be a cellulitis. CC: Jaden Gonzales Past Med Surg Social Fam HX - Past Medical History Medical history: arthritis, diabetes, hyperlipidemia, hypertension, thyroid disease Additional medical history: OBESITY, neuropathy, chronic LE edema Psychiatric history: anxiety, depression - Past Surgical History Surgical History: no surgical history Additional surgical history: skin cancer surgery in 1997. - Social History Smoking Status: Former smoker Smokeless Tobacco Status: No Alcohol use: none Drug use: none - Family History Mother Adopted: No Family Member Ethnicity: Non- Living Status: Hx Family Cardiac Disorders: Yes Hx Family Respiratory Disorders: No Hx Family Cancer: Yes Hx Family GI Disorders: No Hx Family Endocrine Disorder: No Hx Family Neuromuscular Disorders: No Hx Family Neurologic Disorders: No Hx Family HEENT Disorders: No Hx Family Autoimmune Disorders: No Father Adopted: No Family Member Ethnicity: Non- Living Status: Hx Family Cardiac Disorders: Yes Hx Family Respiratory Disorders: No Hx Family Cancer: No Hx Family GI Disorders: No Hx Family Endocrine Disorder: No Hx Family Neuromuscular Disorders: No Hx Family Neurologic Disorders: No Hx Family HEENT Disorders: No Hx Family Autoimmune Disorders: No Infectious Disease-CN:Meds Aspirin Enteric Coated [Aspirin EC] 81 mg PO DAILY 05/16/18 [History] Cholecalciferol (D-3) [Vitamin D] 1,000 unit PO DAILY 05/16/18 [History] Furosemide [Lasix] 40 mg PO BID 05/16/18 [History] Gabapentin [Neurontin] 300 mg PO BID 05/16/18 [History] Levothyroxine [Synthroid] 150 mcg PO DAILY 05/16/18 [History] Multivitamin [One Daily Multivitamin] 1 tab PO DAILY 05/16/18 [History] Potassium Chloride [Klor-Con 10] 10 meq PO BID 05/16/18 [History] Simvastatin [Zocor] 20 mg PO HS 05/16/18 [History] DiphenhydraMINE [Benadryl] 25 mg PO Q6HR PRN capsule 05/19/18 [Rx] Vancomycin [Vancocin] 1,000 mg IV DAILY 06/20/18 [History] Acetaminophen [Tylenol] 650 mg PO Q6HR PRN 07/31/18 [History] Lisinopril [Zestril] 10 mg PO DAILY 07/31/18 [History] Spironolactone [Aldactone] 25 mg PO DAILY 07/31/18 [History] Whey Protein Isolate [Unjury] 2 pack PO BID 07/31/18 [History] 3 Allergy/AdvReac Type Severity Reaction Status Date / Time Sulfa (Sulfonamide Allergy Rash Verified 07/31/18 11:38 Antibiotics) Review of systems: 10 point review of systems done, negative other for what is mentioned in history of present illness Exam - Constitutional Vitals: Temp Pulse Resp BP Pulse Ox 97.7 F 67 16 122/68 98 08/02/18 11:51 08/02/18 11:51 08/02/18 11:51 08/02/18 11:51 08/02/18 11:51 General appearance: no acute distress, no febrile - Head Head exam: Present: atraumatic, normocephalic - Eye Eye exam: Present: EOMI, PERRL, sclera anicteric - Respiratory Respiratory exam: Present: CTAB. Absent: wheezes - Cardiovascular Cardiovascular exam: Present: RRR, +S1, +S2 - GI/Abdominal GI/Abdominal exam: Present: normal bowel sounds, soft. Absent: tenderness - Extremities Exam Additional comments: Slight cellulitis right lower extremity and a decubitus ulcer on the right lower extremity. She also has an unstageable decubitus ulcer on her back - Neurological Exam Neurological exam: Present: alert, oriented X3 - Psychiatric Psychiatric exam: Present: normal affect, normal mood Infectious Disease CN: Results - Labs CBC & Chem 7: 08/01/18 04:52 08/02/18 06:13 Serology: Serology 08/02/18 08/01/18 08/01/18 Range/Units 12:05 09:45 09:10 Urine Creatinine 71 mg/dL Protein/Creatinin Ratio 0.41 H (0.00-0.20) mg/mg Urine Total Protein 29 H (1-14) mg/dL Nasal Screen MRSA (PCR) Negative Negative (Negative) - VTE Deep Vein Thrombosis/Pulmonary Embolism Present on Admission: No Consult Discharge Plan - Plan Referrals: Jamila Betts ELECTRIC CLOCK MECHANIC [Primary Care Provider] -
[2018-08-02] MEDS: Ampicillin/Sulbactam 3,000 MG in 0.9 % Sodium Chloride Mini Bag 100 ML IVPB SCH (18:22)
--- NOTE | 2018-08-02 20:17 | Internal Med Progress Note ---
Hospitalist Progress Note - Encounter Date of Encounter: 08/02/18 Time of Encounter: 20:14 - Subjective Interval History: Pt reports having RLE diabetic foot ulcer. She denies fever, chills, N/V, constipation or diarrhea. She denies CP or SOB. - Exam Vitals: Temp Pulse Resp BP Pulse Ox 97.7 F 67 16 122/68 98 08/02/18 11:51 08/02/18 11:51 08/02/18 11:51 08/02/18 11:51 08/02/18 11:51 Exam: PHYSICAL EXAM: GEN morbidly obese. sedentary life style. Skin: RLE cellulitis and diabetic foot ulcer likely stage 3. Sacral wound. Eyes: Sclera is white. There is no discharge from eyes. ENMT: Oral/pharyngeal mucosa is normal in appearance. There is no discharge from nose or ears. Respiratory: Normal breath sounds with no crackles and wheezes bilaterally. CV: Heart is regular with no gallop or murmur. GI: Abdomen is flat and soft with no palpable mass or visceromegaly. : There is no tenderness in patient's flanks bilaterally. Neuro exam: He has good strength in upper and lower extremities. He has normal eye movements. Psychiatric: He has normal affect. His thought process is appropriate to the situation. Extremity. RLE cellulitis and diabetic foot ulcer likely stage 3. - Assessment and Plan (1) Acute kidney injury Current Visit: Yes Status: Acute Assessment and Plan: Nephrology consulted to see. LUBNA multifactorial. Cr dwon from 1.66 to 0.85 Pt had been on Lisinopril, aldactone, and more recently on Vancomycin. Urine analysis on admission was abnormal and likely positive for UTI. Urine culture and sensitivity yeast. (2) Hypertension Current Visit: No Status: Chronic Assessment and Plan: Lisinopril on hold for now. (3) Pressure ulcer of right leg, stage 3 Current Visit: No Status: Chronic Assessment and Plan: wound care nurse consulting. ID started pt on doxycycline. (4) Pressure ulcer, buttock, right, unstageable Current Visit: No Status: Acute Assessment and Plan: wound culture showing Acinobacter. Seen by ID and started on Unasyn. (5) Hyperkalemia Current Visit: Yes Status: Acute Assessment and Plan: Severe hyperkalemia 6.2 on arrival. Patient's serum potassium has now dropped to 5.8. Continues to trend down on its own with IV fluids and improvement of kidney function. Given one time dose kayexalate. K 4.8 and corrected. Nephrology recommends DC home K supplement at discharge. (6) Diabetes mellitus Current Visit: Yes Status: Acute Assessment and Plan: Glucose controlled. Hgb A1c 6.1. (7) Elevated troponin Current Visit: Yes Status: Acute Assessment and Plan: Not clear whythis was checked on admission as pt was sent over for admission by ME for LUBNA and hyperkalemia. Pt denies CP or SOB on admission or now. She does have documented hx of diastolic CHF and NSTEMI. Pt was evaluated by cardiology 06/05/2018 for elevated troponin. At that time troponin was 0.48, 0.51, 0.48 and elevated troponin was attributed to demand ischemia. Pt is currently asymptomatic and EKG on this admission showed SR, LBBB, and prolonged [place] but no changes consisted with ACS. last echo showed EF 60%, moderate LVDD. Echo 06/03/2018 EV/EV echocardiogram w enhance Impressions: LVEF 55-60%. LV size upper limits of normal. Moderate left ventricular diastolic dysfunction. Definity echo contrast was used. Normal right ventricular structure and function. Moderate aortic stenosis. Mild tricuspid regurgitation. Moderate pulmonary hypertension. (8) Acute cystitis Current Visit: Yes Status: Acute DVT Prophylaxis: Heparin - Summary of Assessment and Plan Summary of Assessment and Plan: This is a 77-year-old woman is a resident of a alf facility. She has been bedbound for at least several months due to her medical problems/ debility, It was today morning when she had a routine blood work. A little bit later she was discovered to have increased creatinine and high potassium (6.8). - Time Spent with Patient Total time spent is greater than 50% in coordination of care (as documented) at patient's floor/unit and/or counseling patient: 25 - 35 minutes Plan of Care Discussed with: patient Internal Medicine: Result - Labs CBC & Chem 7: 08/01/18 04:52 08/02/18 06:13 Labs: BMP 08/02/18 06:13 Sodium 137 Potassium 4.8 Chloride 103 Carbon Dioxide 28 BUN 29 H Creatinine 0.85 Glucose 91 Calcium 8.6 Cardiac Enzymes 08/02/18 Range/Units 10:05 Troponin I 0.48 H* (< 0.04) ng/mL - ABG Interpretation ABG results: PT/INR, D-dimer PT 10.8 Seconds (9.4-12.1) 07/31/18 10:12 - VTE Deep Vein Thrombosis/Pulmonary Embolism Present on Admission: No Consult Discharge Plan - Plan Referrals: Jamila Betts, WASHER BLANKET [Primary Care Provider] - (2) Hypertension Qualifiers: Hypertension type: essential hypertension Qualified Code(s): I10 - Essential (primary) hypertension (6) Diabetes mellitus Qualifiers: Diabetes mellitus type: type 2 Diabetes mellitus termite treater helper insulin use: without alf use Diabetes mellitus complication status: with skin complications Diabetes mellitus complication detail: with other skin ulcer Qualified Code(s): E11.622 - Type 2 diabetes mellitus with other skin ulcer
[2018-08-03] MEDS: Ampicillin/Sulbactam 3,000 MG in 0.9 % Sodium Chloride Mini Bag 100 ML IVPB SCH ×4 (00:53→16:39)
[2018-08-03] MEDS: Acetaminophen 325 MG TABLET PO PRN (01:37)
[2018-08-03] MEDS: *HR* Heparin 5,000 UNIT/ML VIAL SQ SCH ×3 (05:14→23:06)
[2018-08-03] MEDS: Insulin LISPRO 300 UNITS/3 ML VIAL SQ SCH ×4 (08:07→23:06)
[2018-08-03] MEDS: Cholecalciferol (D-3) 1,000 UNIT TABLET PO SCH (09:25)
[2018-08-03] MEDS: Gabapentin 300 MG CAPSULE PO SCH ×2 (09:25→23:05)
[2018-08-03] MEDS: Aspirin Enteric Coated 81 MG Tablet PO SCH (09:25)
[2018-08-03] MEDS: Gentamicin Oint 15 GM TUBE TP SCH (09:28)
[2018-08-03] MEDS: Nystatin POWDER 30 GM BOTTLE TP SCH ×3 (09:29→23:07)
--- NOTE | 2018-08-03 10:23 | Infectious Disease Progress No ---
Date of Encounter: 08/03/18 Time of Encounter: 10:05 - Assessment and Plan (1) Decubital ulcer Current Visit: Yes Status: Chronic High index of suspicion of osteomyelitis. ESR and CRP elevated at 92 and 19, respectively. Wound culture positive for Acinetobacter MRDO, sensitive to Unasyn only. Blood cultures drawn 07/31 x2 sets are NGTD. Recommend CT pelvis to evaluate for osteomyelitis. Continue Unasyn since patient also has a lower extremity cellulitis Monitor renal function and for drug toxicity and dose-adjust antibiotics. Wound care. Qualifiers: Pressure injury location: buttock Pressure injury stage: unspecified pressure injury stage Laterality: unspecified laterality Qualified Code(s): L89.309 - Pressure ulcer of unspecified buttock, unspecified stage (2) Cellulitis Current Visit: No Status: Acute Continue Unasyn as above. Continue doxycycline. Duration of treatment depends on clinical picture. Monitor renal function and for drug toxicity and dose-adjust antibiotics. Qualifiers: Site of cellulitis: extremity Site of cellulitis of extremity: lower extremity Laterality: right Qualified Code(s): L03.115 - Cellulitis of right lower limb (3) Pressure ulcer of right ankle, unstageable Current Visit: No Status: Chronic Wound care. (4) LUBNA (acute kidney injury) Current Visit: Yes Status: Resolved Resolved. (5) Hyperkalemia Current Visit: Yes Status: Resolved Resolved. (6) Diabetes mellitus type 2 in obese Current Visit: Yes Status: Chronic Insulin. (7) Allergy to antibiotic Current Visit: Yes Status: Acute Allergies to sulfa. Exact reaction not known - Subjective Interval history: Patient seen and examined. No acute events overnight. Patient is resting comfortably in bed watching TV. Patient states she feels "much better" than when admitted. States she feels back to baseline. Patient denies any pain. Denies fever, chills. Denies nausea/vomiting. Denies abdominal pain, diarrhea/ constipation. Denies chest pain, shortness of breath. Denies swelling. Denies numbness/tingling. Denies urinary symptoms. Infect Dis PN-Objective Data - Labs CBC & Chem 7: 08/01/18 04:52 08/02/18 06:13 Labs: Laboratory Results - last 24 hr 08/01/18 08/01/18 08/01/18 09:45 10:54 16:12 ESR POC Glucose 100 H 88 Troponin I C-Reactive Protein Nasal Screen MRSA (PCR) Negative 08/01/18 08/02/18 08/02/18 20:08 07:22 10:05 ESR POC Glucose 112 H 87 Troponin I 0.48 H* C-Reactive Protein Nasal Screen MRSA (PCR) 08/02/18 08/03/18 08/03/18 12:05 06:01 06:01 ESR 92 H POC Glucose Troponin I C-Reactive Protein 19 H Nasal Screen MRSA (PCR) Negative 08/03/18 07:45 ESR POC Glucose 102 H Troponin I C-Reactive Protein Nasal Screen MRSA (PCR) Cultures: Serology 08/02/18 08/01/18 08/01/18 Range/Units 12:05 09:45 09:10 Urine Creatinine 71 mg/dL Protein/Creatinin Ratio 0.41 H (0.00-0.20) mg/mg Urine Total Protein 29 H (1-14) mg/dL Nasal Screen MRSA (PCR) Negative Negative (Negative) Exam - Constitutional Vitals: Temp Pulse Resp BP Pulse Ox 97.4 F L 47 19 127/71 93 08/03/18 10:08 08/03/18 10:08 08/03/18 10:08 08/03/18 10:08 08/03/18 10:08 General appearance: cooperative, morbidly obese, no acute distress, no febrile - Head Head exam: Present: atraumatic, normal inspection, normocephalic - Eye Eye exam: Present: EOMI, normal appearance, PERRL - ENT ENT exam: Present: mucous membranes moist, normal oropharynx - Neck Neck exam: Present: normal inspection - Respiratory Respiratory exam: Present: CTAB. Absent: rales, respiratory distress, rhonchi, wheezes - Cardiovascular Cardiovascular exam: Present: RRR, +S1, +S2 - GI/Abdominal GI/Abdominal exam: Present: normal bowel sounds, soft. Absent: distended, tenderness - Extremities Exam Extremities exam: Absent: joint swelling, normal inspection (Right leg bandaged. Right leg cellulitis. ), pedal edema, tenderness - Neurological Exam Neurological exam: Present: alert, oriented X3 - Psychiatric Psychiatric exam: Present: normal affect, normal mood - Skin Skin exam: Present: dry, intact, normal color, warm - VTE Deep Vein Thrombosis/Pulmonary Embolism Present on Admission: No Consult Discharge Plan - Plan Referrals: Jamila Betts, TEACHER [Primary Care Provider] - - Attending Attestation I examined this patient and my medical decision-making was reviewed with the Resident Physician. I agree with the documented findings, disposition and treatment plan as described except to the extent set forth below.
--- NOTE | 2018-08-03 13:22 | Internal Med Progress Note ---
Hospitalist Progress Note - Encounter Date of Encounter: 08/03/18 Time of Encounter: 13:21 - Subjective Interval History: Pt reports having RLE diabetic foot ulcer. She denies fever, chills, N/V, constipation or diarrhea. She denies CP or SOB. - Exam Vitals: Temp Pulse Resp BP Pulse Ox 97.4 F L 47 19 127/71 93 08/03/18 10:08 08/03/18 10:08 08/03/18 10:08 08/03/18 10:08 08/03/18 10:08 Exam: Exam: PHYSICAL EXAM: GEN morbidly obese. sedentary life style. Skin: RLE cellulitis and diabetic foot ulcer likely stage 3. Sacral wound. Eyes: Sclera is white. There is no discharge from eyes. ENMT: Oral/pharyngeal mucosa is normal in appearance. There is no discharge from nose or ears. Respiratory: Normal breath sounds with no crackles and wheezes bilaterally. CV: Heart is regular with no gallop or murmur. GI: Abdomen is flat and soft with no palpable mass or visceromegaly. : There is no tenderness in patient's flanks bilaterally. Neuro exam: He has good strength in upper and lower extremities. He has normal eye movements. Psychiatric: He has normal affect. His thought process is appropriate to the situation. Extremity. RLE cellulitis and diabetic foot ulcer likely stage 3. - Assessment and Plan (1) Acute kidney injury Current Visit: Yes Status: Acute Assessment and Plan: Nephrology consulted to see. LUBNA multifactorial. Cr down from 1.66 to 0.85 Pt had been on Lisinopril, aldactone, and more recently on Vancomycin. Urine analysis on admission was abnormal and likely positive for UTI. Urine culture and sensitivity yeast. (2) Hypertension Current Visit: No Status: Chronic Assessment and Plan: Lisinopril on hold for now. (3) Pressure ulcer of right leg, stage 3 Current Visit: No Status: Chronic Assessment and Plan: wound care nurse consulting. ID started pt on doxycycline. (4) Pressure ulcer, buttock, right, unstageable Current Visit: No Status: Acute Assessment and Plan: Wound culture showing Acinobacter. Seen by ID and started on Unasyn. (5) Hyperkalemia Current Visit: Yes Status: Acute (6) Diabetes mellitus Current Visit: Yes Status: Acute Assessment and Plan: Glucose up but had been controlled. Hgb A1c 6.1. Will start Levemir 15 units QHS (7) Elevated troponin Current Visit: Yes Status: Acute Assessment and Plan: Not clear whythis was checked on admission as pt was sent over for admission by [facility] for LUBNA and hyperkalemia. Pt denies CP or SOB on admission or now. She does have documented hx of diastolic CHF and NSTEMI. Pt was evaluated by cardiology 06/05/2018 for elevated troponin. At that time troponin was 0.48, 0.51, 0.48 and elevated troponin was attributed to demand ischemia. Pt is currently asymptomatic and EKG on this admission showed SR, LBBB, and prolonged [place] but no changes consisted with ACS. last echo showed EF 60%, moderate LVDD. Echo 06/03/2018 EV/EV echocardiogram w enhance Impressions: LVEF 55-60%. LV size upper limits of normal. Moderate left ventricular diastolic dysfunction. Definity echo contrast was used. Normal right ventricular structure and function. Moderate aortic stenosis. Mild tricuspid regurgitation. Moderate pulmonary hypertension. (8) Acute cystitis Current Visit: Yes Status: Acute Assessment and Plan: Heparin DVT Prophylaxis: Heparin - Summary of Assessment and Plan Summary of Assessment and Plan: This is a 77-year-old woman is a resident of a intermediate facility. She has been bedbound for at least several months due to her medical problems/ debility, It was today morning when she had a routine blood work. A little bit later she was discovered to have increased creatinine and high potassium (6.8). - Time Spent with Patient Total time spent is greater than 50% in coordination of care (as documented) at patient's floor/unit and/or counseling patient: 25 - 35 minutes Plan of Care Discussed with: patient Internal Medicine: Result - Labs CBC & Chem 7: 08/01/18 04:52 08/02/18 06:13 - ABG Interpretation ABG results: PT/INR, D-dimer PT 10.8 Seconds (9.4-12.1) 07/31/18 10:12 - VTE Deep Vein Thrombosis/Pulmonary Embolism Present on Admission: No Consult Discharge Plan - Plan Referrals: Jamila Betts, COMMUNICATION COORDINATOR [Primary Care Provider] - (2) Hypertension Qualifiers: Hypertension type: essential hypertension Qualified Code(s): I10 - Essential (primary) hypertension (6) Diabetes mellitus Qualifiers: Diabetes mellitus type: type 2 Diabetes mellitus senior living insulin use: without senior living use Diabetes mellitus complication status: with skin complications Diabetes mellitus complication detail: with other skin ulcer Qualified Code(s): E11.622 - Type 2 diabetes mellitus with other skin ulcer
[2018-08-03] MEDS: Doxycycline 100 MG CAPSULE PO SCH (23:05)
[2018-08-04] MEDS ORDERED: Acetaminophen/Aspirin/Caffeine TABLET PO PRN (00:21)
[2018-08-04] MEDS: Ampicillin/Sulbactam 3,000 MG in 0.9 % Sodium Chloride Mini Bag 100 ML IVPB SCH ×3 (01:21→16:31)
[2018-08-04] MEDS: *HR* Heparin 5,000 UNIT/ML VIAL SQ SCH ×3 (06:36→21:53)
[2018-08-04] MEDS: Aspirin Enteric Coated 81 MG Tablet PO SCH (09:17)
[2018-08-04] MEDS: Cholecalciferol (D-3) 1,000 UNIT TABLET PO SCH (09:17)
[2018-08-04] MEDS: Doxycycline 100 MG CAPSULE PO SCH ×2 (09:17→21:51)
[2018-08-04] MEDS: Gabapentin 300 MG CAPSULE PO SCH ×2 (09:17→21:51)
[2018-08-04] MEDS: Insulin LISPRO 300 UNITS/3 ML VIAL SQ SCH ×4 (10:49→21:52)
--- NOTE | 2018-08-04 12:26 | Infectious Disease Progress No ---
Date of Encounter: 08/04/18 Time of Encounter: 12:23 - Assessment and Plan (1) Sacral decubitus ulcer Current Visit: Yes Status: Acute Location sacrum. Wound culture positive for multidrug resistant Acinetobacter baumannii. Concern for osteomyelitis of the underlying bone due to clinical picture and elevated inflammatory markers (ESR 92, CRP 19). Recommend dressing changes per wound care evaluation. Recommend aggressive offloading and every [address] of the abdomen and pelvis to evaluate for osteomyelitis. Continue Unasyn 3.375 g IV every 8 hours. Duration of treatment depends on the clinical picture. Monitor renal function for drug toxicity and dose adjust antibiotics. Qualifiers: Pressure injury stage: unspecified pressure injury stage Qualified Code(s) : L89.159 - Pressure ulcer of sacral region, unspecified stage (2) Cellulitis Current Visit: No Status: Acute Location: Right lower extremity. Likely secondary to chronic nonhealing venous stasis ulcers. Causative organism: Unclear. Clinically improved. Continue Unasyn 3.375 g IV every 6 hours. Continue doxycycline 100 mg by mouth twice a day. Duration of treatment depends on the clinical picture, but likely a total 14 days. Monitor renal function and dose adjust antibiotics. Qualifiers: Site of cellulitis: extremity Site of cellulitis of extremity: lower extremity Laterality: right Qualified Code(s): L03.115 - Cellulitis of right lower limb (3) LUBNA (acute kidney injury) Current Visit: Yes Status: Resolved Etiology unclear. Resolved. (4) Pressure ulcer of right leg, stage 3 Current Visit: No Status: Chronic Recommend aggressive wound care and dressing changes. (5) Hypothyroidism Current Visit: No Status: Chronic Qualifiers: Hypothyroidism type: unspecified Qualified Code(s): E03.9 - Hypothyroidism , unspecified (6) Elevated troponin Current Visit: Yes Status: Deleted (7) Allergy to antibiotic Current Visit: Yes Status: Acute Allergies to sulfa. Exact reaction not known (8) Diabetes mellitus type 2 in obese Current Visit: Yes Status: Chronic Recommend aggressive glucose monitoring and control to promote wound healing and prevent reinfection. Management per the primary team. (9) Morbid obesity Current Visit: No Status: Chronic - Subjective Interval history: Patient seen and examined. No acute events noted overnight. Patient states overall she feels well. She denies any fevers or chills or rigors. She denies any chest pain, shortness of breath, or cough. She denies any nausea, vomiting , diarrhea, constipation. She states her last bowel movement was 2 days ago. She denies any abdominal pain, urinary complaints, appetite changes. She does report some mild pain in the right lower extremity. She denies any oral thrush or new skin lesions. Infect Dis PN-Objective Data - Labs CBC & Chem 7: 08/07/18 06:39 08/06/18 06:11 Labs: Laboratory Results - last 24 hr 08/02/18 08/02/18 08/02/18 11:47 16:12 20:32 POC Glucose 181 H 119 H 164 H 08/03/18 08/03/18 08/04/18 15:52 21:26 07:06 POC Glucose 177 H 127 H 102 H 08/04/18 10:59 POC Glucose 146 H Cultures: Serology 08/02/18 08/01/18 08/01/18 Range/Units 12:05 09:45 09:10 Urine Creatinine 71 mg/dL Protein/Creatinin Ratio 0.41 H (0.00-0.20) mg/mg Urine Total Protein 29 H (1-14) mg/dL Nasal Screen MRSA (PCR) Negative Negative (Negative) Exam - Constitutional Vitals: Temp Pulse Resp BP Pulse Ox 97.8 F 69 18 110/65 95 08/04/18 10:56 08/04/18 10:56 08/04/18 10:56 08/04/18 10:56 08/04/18 10:56 General appearance: cooperative, morbidly obese, no acute distress - Head Head exam: Present: atraumatic, normal inspection, normocephalic - Eye Eye exam: Present: EOMI, normal appearance, PERRL Pupils: Present: normal accommodation - ENT ENT exam: Present: mucous membranes moist - Neck Neck exam: Present: normal inspection - Respiratory Respiratory exam: Present: CTAB. Absent: rales, respiratory distress, rhonchi, wheezes - Cardiovascular Cardiovascular exam: Present: RRR, +S1, +S2 - GI/Abdominal GI/Abdominal exam: Present: distended (Obese), normal bowel sounds, soft. Absent: tenderness Additional comments: Chronic indwelling Steel catheter noted to be draining clear yellow urine. - Extremities Exam Extremities exam: Present: pedal edema (1+ right lower extremity). Absent: normal inspection (Erythema noted to the right lower extremity. Gauze dressing is clean, dry, and intact.) - Neurological Exam Neurological exam: Present: alert, oriented X3, no focal deficits - Psychiatric Psychiatric exam: Present: normal affect, normal mood - Skin Skin exam: Present: dry, intact, normal color, warm - VTE Deep Vein Thrombosis/Pulmonary Embolism Present on Admission: No Consult Discharge Plan - Plan Referrals: Jamila Hernandez CNP [Advanced Practice Nurse] - 08/24/18 9:20 am Jamila Betts CNP [Primary Care Provider] - Prescriptions: Ampicillin/Sulbactam [Unasyn] 3,000 mg IVPB Q6HR 9 Days #9 vial Collagenase Oint [Santyl] 1 appl TP DAILY 10 Days #1 tube Doxycycline 100 mg PO BID 9 Days #18 capsule Fluconazole [Diflucan] 100 mg PO DAILY 1 Days #1 tablet Gentamicin Oint [Garamycin] 1 appl TP DAILY 10 Days #1 tube Nystatin POWDER [Nystop] 1 appl TP TID 10 Days #1 bottle
[2018-08-04 12:41] LABS: Basophils % 0.3 %; Eosinophils # 0.2 K/mcL (0.0-0.6); Eosinophils % 3.5 %; Hematocrit 31.6 % (35.3-44.9); Hemoglobin 9.5 g/dL (11.5-15.4); Immature Granulocytes % 0.3 % (0-4); Lymphocytes # 0.8 K/mcL (0.6-4.6); Lymphocytes % 12.4 %; Mean Corpuscular HGB Conc 30.1 g/dL (31.6-35.5); Mean Corpuscular Hemoglobin 29.4 pg (28.0-33.3); Mean Corpuscular Volume 97.8 fL (83.0-100.0); Mean Platelet Volume 9.9 fL (9.4-12.4); Monocytes # 0.7 K/mcL (0.0-1.3); Monocytes % 10.6 %; Neutrophils # 4.5 K/mcL (1.6-8.9); Platelet Count 171 K/mcL (140-400); Red Blood Count 3.23 M/mcL (3.82-4.97); Red Cell Distribution Width 13.9 % (11.5-14.5); Segmented Neutrophils % 72.9 %
[2018-08-04 13:05] LABS: BUN/Creatinine Ratio 28 (6-26); Blood Urea Nitrogen 23 mg/dL (8-23); Calcium 8.7 mg/dL (8.6-10.3); Carbon Dioxide 37 mEq/L (23-29); Chloride 99 mEq/L (98-107); Glucose 164 mg/dL (70-105); Osmolality,Calculated 289 (280-300); Potassium 4.6 mEq/L (3.5-5.1); Sodium 136 mEq/L (136-145); eGFR For Non-African Americans > 60 (> 60)
[2018-08-04] MEDS: Gentamicin Oint 15 GM TUBE TP SCH (16:32)
[2018-08-04] MEDS: Nystatin POWDER 30 GM BOTTLE TP SCH ×2 (16:32→21:52)
--- NOTE | 2018-08-04 18:20 | Internal Med Progress Note ---
Hospitalist Progress Note - Encounter Date of Encounter: 08/04/18 Time of Encounter: 18:20 - Subjective Interval History: Pt reports having RLE diabetic foot ulcer. She denies fever, chills, N/V, constipation or diarrhea. She denies CP or SOB. - Exam Vitals: Temp Pulse Resp BP Pulse Ox 98.7 F 71 14 90/53 96 08/04/18 14:38 08/04/18 14:38 08/04/18 14:38 08/04/18 14:38 08/04/18 14:38 Exam: Exam: PHYSICAL EXAM: GEN morbidly obese. sedentary life style. Skin: RLE cellulitis and diabetic foot ulcer likely stage 3. Sacral wound. Eyes: Sclera is white. There is no discharge from eyes. ENMT: Oral/pharyngeal mucosa is normal in appearance. There is no discharge from nose or ears. Respiratory: Normal breath sounds with no crackles and wheezes bilaterally. CV: Heart is regular with no gallop or murmur. GI: Abdomen is flat and soft with no palpable mass or visceromegaly. : There is no tenderness in patient's flanks bilaterally. Neuro exam: He has good strength in upper and lower extremities. He has normal eye movements. Psychiatric: He has normal affect. His thought process is appropriate to the situation. Extremity. RLE cellulitis and diabetic foot ulcer likely stage 3. - Assessment and Plan (1) Acute kidney injury Current Visit: Yes Status: Acute Assessment and Plan: Nephrology consulted to see. LUBNA multifactorial. Cr down from 1.66 to 0.81 Pt had been on Lisinopril, aldactone, and more recently on Vancomycin. Urine analysis on admission was abnormal and likely positive for UTI. Urine culture and sensitivity yeast. (2) Hypertension Current Visit: No Status: Chronic (3) Pressure ulcer of right leg, stage 3 Current Visit: No Status: Chronic Assessment and Plan: Wound culture showing Acinobacter. Seen by ID and started on Unasyn and on doxy (4) Pressure ulcer, buttock, right, unstageable Current Visit: No Status: Acute Assessment and Plan: Wound culture showing Acinobacter. Seen by ID and started on Unasyn. ID order CT abdomen and pelvis to rule out OM. (5) Hyperkalemia Current Visit: Yes Status: Resolved Assessment and Plan: corrected (6) Diabetes mellitus Current Visit: Yes Status: Acute Assessment and Plan: Glucose up but had been controlled. Hgb A1c 6.1. Was started on Levemir 15 units QHS and on SSI (7) Elevated troponin Current Visit: Yes Status: Acute Assessment and Plan: Not clear whythis was checked on admission as pt was sent over for admission by [facility] for LUBNA and hyperkalemia. Pt denies CP or SOB on admission or now. She does have documented hx of diastolic CHF and NSTEMI. Pt was evaluated by cardiology 06/05/2018 for elevated troponin. At that time troponin was 0.48, 0.51, 0.48 and elevated troponin was attributed to demand ischemia. Pt is currently asymptomatic and EKG on this admission showed SR, LBBB, and prolonged MT but no changes consisted with ACS. last echo showed EF 60%, moderate LVDD. Echo 06/03/2018 EV/EV echocardiogram w enhance Impressions: LVEF 55-60%. LV size upper limits of normal. Moderate left ventricular diastolic dysfunction. Definity echo contrast was used. Normal right ventricular structure and function. Moderate aortic stenosis. Mild tricuspid regurgitation. Moderate pulmonary hypertension. (8) Acute cystitis Current Visit: Yes Status: Acute Assessment and Plan: So far urine culture growing abdelrahman parapsilosis. DVT Prophylaxis: Heparin - Summary of Assessment and Plan Summary of Assessment and Plan: This is a 77-year-old woman is a resident of a intermediate facility. She has been bedbound for at least several months due to her medical problems/ debility, It was today morning when she had a routine blood work. A little bit later she was discovered to have increased creatinine and high potassium (6.8). - Time Spent with Patient Total time spent is greater than 50% in coordination of care (as documented) at patient's floor/unit and/or counseling patient: less than 15 minutes Plan of Care Discussed with: patient Internal Medicine: Result - Labs CBC & Chem 7: 08/04/18 12:27 08/04/18 12:27 Labs: Short CBC 08/04/18 Range/Units 12:27 WBC 6.2 (4.3-11.1) K/mcL Hgb 9.5 L (11.5-15.4) g/dL Hct 31.6 L (35.3-44.9) % Plt Count 171 (140-400) K/mcL Neutrophils # 4.5 (1.6-8.9) K/mcL BMP 08/04/18 12:27 Sodium 136 Potassium 4.6 Chloride 99 Carbon Dioxide 37 H BUN 23 Creatinine 0.81 Glucose 164 H Calcium 8.7 - ABG Interpretation ABG results: PT/INR, D-dimer PT 10.8 Seconds (9.4-12.1) 07/31/18 10:12 - Impressions Impressions Abdomen/Pelvis CT 08/04/18 14:00 IMPRESSION: 1. Ulceration possibly containing packing material within the right paramedian lower back superficial to the right sacroiliac joint. Although there is suspected adjacent cellulitis, there are no findings suggestive of associated abscess or underlying osteomyelitis. 2. Subcutaneous stranding and skin thickening in the pannus may be related to edema as seen elsewhere versus panniculitis. 3. Decompressed urinary bladder with possible superimposed cystitis. 4. A few incidental findings as above for which no follow-up is recommended. 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
[2018-08-05] MEDS: Ampicillin/Sulbactam 3,000 MG in 0.9 % Sodium Chloride Mini Bag 100 ML IVPB SCH ×5 (00:58→19:13)
[2018-08-05] MEDS: *HR* Heparin 5,000 UNIT/ML VIAL SQ SCH ×3 (06:16→21:09)
[2018-08-05] MEDS: Doxycycline 100 MG CAPSULE PO SCH ×2 (09:25→21:09)
[2018-08-05] MEDS: Aspirin Enteric Coated 81 MG Tablet PO SCH (09:25)
[2018-08-05] MEDS: Cholecalciferol (D-3) 1,000 UNIT TABLET PO SCH (09:25)
[2018-08-05] MEDS: Gabapentin 300 MG CAPSULE PO SCH ×2 (09:25→21:08)
[2018-08-05] MEDS: Insulin LISPRO 300 UNITS/3 ML VIAL SQ SCH ×4 (09:25→21:06)
--- NOTE | 2018-08-05 13:33 | Internal Med Progress Note ---
<Lauren Triana - Last Filed: 08/05/18 13:30> Hospitalist Progress Note - Encounter Date of Encounter: 08/05/18 Time of Encounter: 13:30 - Subjective Interval History: 77-year-old female evaluated site. Patient denies nausea, vomiting, diarrhea, fevers, chills, chest pain, shortness of breath. - Exam Vitals: Temp Pulse Resp BP Pulse Ox 98 F 60 15 129/71 97 08/05/18 12:00 08/05/18 12:00 08/05/18 12:00 08/05/18 12:00 08/05/18 12:00 Exam: Gen.: alert and oriented X3, no acute distress. Patient is morbidly obese and was sitting up in bed eating lunch. CV: RRR, no murmurs, wraps, gallops. Respiratory: difficult to hear breath sounds due to body habitus abdomen: soft, nondistended, nontender, bowel sounds present. Extremities: right lower extremity wrapped. No cyanosis or edema present. - Assessment and Plan (1) Sacral decubitus ulcer Current Visit: No Status: Acute Assessment and Plan: patient is from alf, morbidly obese, and is bedbound. 08/04/18 CT abdomen/pelvis was done to rule out ostoemyelitis. CT showed ulceration in the lower back superficial to the right SI joint, suspected adjacent cellulitis. No evidence of osteomyelitis. Blood cultures from 07/31/18 x2: no growth. Anaerobic cultures negative wound culture grew Acinetobacter baumanni MDRO. S: unasyn Plan: appreciate ID recs Continue Unasyn (day 3) wound care, dressing changes per wound care recs q2H turning PT/OT (2) LUBNA (acute kidney injury) Current Visit: Yes Status: Resolved Assessment and Plan: Likely related to nephrotoxins. Patient was taking lasix, spironolactone, lisinopril. vancomyin Currently resolved. Retroperitoneal ultrasound on 08/01 was unremarkable Continue to monitor, avoid nephrotoxins (3) Pressure ulcer of right leg, stage 3 Current Visit: No Status: Chronic Assessment and Plan: Continue with wound care and dressing changes, Q2 hours turning (4) Cellulitis Current Visit: No Status: Acute Assessment and Plan: Right lower extremity cellulitis secondary to venous stasis ulcers plan: doxycycline day 3 (5) Hyperkalemia Current Visit: Yes Status: Resolved Assessment and Plan: Resolved, continue to monitor (6) UTI (urinary tract infection) Current Visit: Yes Status: Acute Assessment and Plan: urine culture growing abdelrahman parapsilosis Plan: diflucan PO day 1 (7) Hypothyroidism Current Visit: No Status: Chronic Assessment and Plan: Continue home medications Synthroid (8) Diabetes mellitus Current Visit: Yes Status: Acute Assessment and Plan: Type II diabetes glucose well-controlled at this time. A1C 6.1 Plan: continue with low-dose sliding scale insulin, ADA diet, ACHS Accu checks (9) Morbid obesity Current Visit: No Status: Chronic Assessment and Plan: Lifestyle modifications advised (10) Elevated troponin Current Visit: Yes Status: Acute Assessment and Plan: likely demand ischemia no chest pain currently. (11) DVT prophylaxis Current Visit: Yes Status: Acute Assessment and Plan: Heparin SQ - Time Spent with Patient Total time spent is greater than 50% in coordination of care (as documented) at patient's floor/unit and/or counseling patient: Internal Medicine: Result - Labs CBC & Chem 7: 08/04/18 12:27 08/04/18 12:27 - ABG Interpretation ABG results: PT/INR, D-dimer PT 10.8 Seconds (9.4-12.1) 07/31/18 10:12 - Impressions Impressions Abdomen/Pelvis CT 08/04/18 14:00 IMPRESSION: 1. Ulceration possibly containing packing material within the right paramedian lower back superficial to the right sacroiliac joint. Although there is suspected adjacent cellulitis, there are no findings suggestive of associated abscess or underlying osteomyelitis. 2. Subcutaneous stranding and skin thickening in the pannus may be related to edema as seen elsewhere versus panniculitis. 3. Decompressed urinary bladder with possible superimposed cystitis. 4. A few incidental findings as above for which no follow-up is recommended. D/ / Harjinder Umanzor MD / Harjinder Umanzor MD Interpreting Provider: Harjinder Umanzor MD - VTE Deep Vein Thrombosis/Pulmonary Embolism Present on Admission: No Consult Discharge Plan - Plan Referrals: Jamila Betts, ANALYTICAL CHEMISTRY TEACHER [Primary Care Provider] - <Ryan Dumontbabu - Last Filed: 08/05/18 15:22> Hospitalist Progress Note - Encounter Date of Encounter: 08/05/18 - Exam Vitals: Temp Pulse Resp BP Pulse Ox 98 F 60 15 129/71 97 08/05/18 12:00 08/05/18 12:00 08/05/18 12:00 08/05/18 12:00 08/05/18 12:00 - Assessment and Plan (1) Hypothyroidism Current Visit: No Status: Chronic (2) Sacral decubitus ulcer Current Visit: No Status: Acute (3) Pressure ulcer of right leg, stage 3 Current Visit: No Status: Chronic (4) Cellulitis Current Visit: No Status: Acute (5) Elevated troponin Current Visit: Yes Status: Acute (6) Morbid obesity Current Visit: No Status: Chronic (7) LUBNA (acute kidney injury) Current Visit: Yes Status: Resolved (8) Hyperkalemia Current Visit: Yes Status: Resolved (9) UTI (urinary tract infection) Current Visit: Yes Status: Acute (10) Diabetes mellitus Current Visit: Yes Status: Acute (11) DVT prophylaxis Current Visit: Yes Status: Acute - Time Spent with Patient Total time spent is greater than 50% in coordination of care (as documented) at patient's floor/unit and/or counseling patient: Internal Medicine: Result - Labs CBC & Chem 7: 08/04/18 12:27 08/04/18 12:27 - ABG Interpretation ABG results: PT/INR, D-dimer PT 10.8 Seconds (9.4-12.1) 07/31/18 10:12 - Impressions Impressions Abdomen/Pelvis CT 08/04/18 14:00 IMPRESSION: 1. Ulceration possibly containing packing material within the right paramedian lower back superficial to the right sacroiliac joint. Although there is suspected adjacent cellulitis, there are no findings suggestive of associated abscess or underlying osteomyelitis. 2. Subcutaneous stranding and skin thickening in the pannus may be related to edema as seen elsewhere versus panniculitis. 3. Decompressed urinary bladder with possible superimposed cystitis. 4. A few incidental findings as above for which no follow-up is recommended. D/ / Harjinder Umanzor MD / Harjinder Umanzor MD Interpreting Provider: Harjinder Umanzor MD - Attending Attestation I examined this patient and my medical decision-making was reviewed with the Resident Physician Dr. Triana. I agree with the documented findings, disposition and treatment plan as described except to the extent set forth below. Ms. Meyers is a 77 year old female with past medical history mentioned below including diabetes mellitus type 2, morbid obesity with a BMI of 51, hypertension, hyperlipidemia, arthritis and thyroid disease who was transferred to [facility] from sn[facility] facility on July 31 with abnormal test results including increased creatinine and potassium.She also had sacral ulcer which did grow multidrug resistant organism Acinetobacter baumanni. Pt was evaluated by ID recommend to continue Unasyn and Doxy. Her CT of abd and Pelvis did not show any osteomyelitis. Pt states she is feeling better. Her Urine cx growing Abdelrahman, so started her on Diflucan now. Gen: A, A< O x 3 Chest: Diminished BS b/l Ext: Ulcer over Rt leg with dressing on. Open wound over Rt gluteal region <Lauren Triana - Last Filed: 08/05/18 13:30> (4) Cellulitis Qualifiers: Site of cellulitis: extremity Site of cellulitis of extremity: lower extremity Laterality: right Qualified Code(s): L03.115 - Cellulitis of right lower limb (6) UTI (urinary tract infection) Qualifiers: Urinary tract infection type: catheter-associated UTI Indwelling urinary catheter type: indwelling urethral catheter Encounter type: initial encounter Qualified Code(s): T83.511A - Infection and inflammatory reaction due to indwelling urethral catheter, initial encounter; N39.0 - Urinary tract infection , site not specified (7) Hypothyroidism Qualifiers: Hypothyroidism type: unspecified Qualified Code(s): E03.9 - Hypothyroidism, unspecified (8) Diabetes mellitus Qualifiers: Diabetes mellitus type: type 2 Diabetes mellitus continuous churn buttermaker insulin use: without continuous churn buttermaker use Diabetes mellitus complication status: with skin complications Diabetes mellitus complication detail: with other skin ulcer Qualified Code(s): E11.622 - Type 2 diabetes mellitus with other skin ulcer <Tani Dumont - Last Filed: 08/05/18 15:22> (1) Hypothyroidism Qualifiers: Hypothyroidism type: unspecified Qualified Code(s): E03.9 - Hypothyroidism, unspecified (4) Cellulitis Qualifiers: Site of cellulitis: extremity Site of cellulitis of extremity: lower extremity Laterality: right Qualified Code(s): L03.115 - Cellulitis of right lower limb (9) UTI (urinary tract infection) Qualifiers: Urinary tract infection type: catheter-associated UTI Indwelling urinary catheter type: indwelling urethral catheter Encounter type: initial encounter Qualified Code(s): T83.511A - Infection and inflammatory reaction due to indwelling urethral catheter, initial encounter; N39.0 - Urinary tract infection , site not specified (10) Diabetes mellitus Qualifiers: Diabetes mellitus type: type 2 Diabetes mellitus continuous churn buttermaker insulin use: without snf use Diabetes mellitus complication status: with skin complications Diabetes mellitus complication detail: with other skin ulcer Qualified Code(s): E11.622 - Type 2 diabetes mellitus with other skin ulcer
[2018-08-05] MEDS: Nystatin POWDER 30 GM BOTTLE TP SCH ×3 (17:48→21:09)
[2018-08-05] MEDS: Gentamicin Oint 15 GM TUBE TP SCH (17:48)
[2018-08-05] MEDS: Fluconazole 100 MG TABLET PO SCH (18:02)
[2018-08-06] MEDS: Ampicillin/Sulbactam 3,000 MG in 0.9 % Sodium Chloride Mini Bag 100 ML IVPB SCH ×5 (00:21→22:02)
[2018-08-06] MEDS: *HR* Heparin 5,000 UNIT/ML VIAL SQ SCH ×3 (06:28→21:55)
[2018-08-06 06:40] LABS: Basophils % 0.2 %; Eosinophils # 0.3 K/mcL (0.0-0.6); Eosinophils % 4.7 %; Immature Granulocytes % 0.2 % (0-4); Lymphocytes # 0.9 K/mcL (0.6-4.6); Lymphocytes % 15.1 %; Mean Corpuscular Hemoglobin 30.3 pg (28.0-33.3); Mean Corpuscular Volume 97.6 fL (83.0-100.0); Mean Platelet Volume 10.4 fL (9.4-12.4); Monocytes # 0.8 K/mcL (0.0-1.3); Monocytes % 13.1 %; Neutrophils # 3.8 K/mcL (1.6-8.9); Platelet Count 172 K/mcL (140-400); Red Blood Count 2.97 M/mcL (3.82-4.97); Red Cell Distribution Width 14.1 % (11.5-14.5); Segmented Neutrophils % 66.7 %
[2018-08-06 07:03] LABS: BUN/Creatinine Ratio 26 (6-26); Blood Urea Nitrogen 22 mg/dL (8-23); Calcium 8.9 mg/dL (8.6-10.3); Carbon Dioxide 35 mEq/L (23-29); Chloride 100 mEq/L (98-107); Glucose 96 mg/dL (70-105); Osmolality,Calculated 291 (280-300); Potassium 4.4 mEq/L (3.5-5.1); Sodium 139 mEq/L (136-145); eGFR For Non-African Americans > 60 (> 60)
[2018-08-06] MEDS: Doxycycline 100 MG CAPSULE PO SCH ×2 (09:58→21:55)
[2018-08-06] MEDS: Cholecalciferol (D-3) 1,000 UNIT TABLET PO SCH (09:58)
[2018-08-06] MEDS: Aspirin Enteric Coated 81 MG Tablet PO SCH (09:58)
[2018-08-06] MEDS: Gabapentin 300 MG CAPSULE PO SCH ×2 (09:59→21:55)
--- NOTE | 2018-08-06 11:25 | Internal Med Progress Note ---
<Lauren Triana - Last Filed: 08/06/18 11:23> Hospitalist Progress Note - Encounter Date of Encounter: 08/06/18 Time of Encounter: 11:23 - Subjective Interval History: 77-year-old female evaluated site. Patient denies nausea, vomiting, diarrhea, fevers, chills, chest pain, shortness of breath. - Exam Vitals: Temp Pulse Resp BP Pulse Ox 98.0 F 80 14 128/66 92 08/06/18 10:27 08/06/18 10:27 08/06/18 10:27 08/06/18 10:27 08/06/18 10:27 Exam: Gen.: alert and oriented X3, no acute distress. Patient is morbidly obese and was sitting up in bed CV: distant heart sounds due to body habitus Respiratory: difficult to hear breath sounds due to body habitus abdomen: soft, nondistended, nontender, bowel sounds present. Extremities: right lower extremity wrapped. No cyanosis or edema present. - Assessment and Plan (1) Sacral decubitus ulcer Current Visit: No Status: Acute Assessment and Plan: patient is from shelter, morbidly obese, and is bedbound. 08/04/18 CT abdomen/pelvis was done to rule out ostoemyelitis. CT showed ulceration in the lower back superficial to the right SI joint, suspected adjacent cellulitis. No evidence of osteomyelitis. Blood cultures from 07/31/18 x2: no growth. Anaerobic cultures negative wound culture grew Acinetobacter baumanni MDRO. S: unasyn Plan: appreciate ID recs Continue Unasyn (day 4) wound care, dressing changes per wound care recs q2H turning PT/OT possible discharge tomorrow if PT/OT eval done and if ok with ID (2) LUBNA (acute kidney injury) Current Visit: Yes Status: Resolved Assessment and Plan: Likely related to nephrotoxins. Patient was taking lasix, spironolactone, lisinopril. vancomyin Currently resolved. Retroperitoneal ultrasound on 08/01 was unremarkable Continue to monitor, avoid nephrotoxins (3) Pressure ulcer of right leg, stage 3 Current Visit: No Status: Chronic Assessment and Plan: Continue with wound care and dressing changes, Q2 hours turning (4) Cellulitis Current Visit: No Status: Acute Assessment and Plan: Right lower extremity cellulitis secondary to venous stasis ulcers plan: doxycycline day 4 (5) Hyperkalemia Current Visit: Yes Status: Resolved Assessment and Plan: Resolved, continue to monitor (6) UTI (urinary tract infection) Current Visit: Yes Status: Acute Assessment and Plan: urine culture growing abdelrahman parapsilosis Plan: diflucan PO day 2 (7) Hypothyroidism Current Visit: No Status: Chronic Assessment and Plan: Continue home medications Synthroid (8) Diabetes mellitus Current Visit: Yes Status: Acute Assessment and Plan: Type II diabetes glucose well-controlled at this time. A1C 6.1 Plan: continue with low-dose sliding scale insulin, ADA diet, ACHS Accu checks (9) Morbid obesity Current Visit: No Status: Chronic Assessment and Plan: Lifestyle modifications advised (10) Elevated troponin Current Visit: Yes Status: Acute Assessment and Plan: likely demand ischemia no chest pain currently. (11) DVT prophylaxis Current Visit: Yes Status: Acute Assessment and Plan: Heparin SQ - Time Spent with Patient Total time spent is greater than 50% in coordination of care (as documented) at patient's floor/unit and/or counseling patient: Internal Medicine: Result - Labs CBC & Chem 7: 08/06/18 06:11 08/06/18 06:11 Labs: Short CBC 08/06/18 Range/Units 06:11 WBC 5.7 (4.3-11.1) K/mcL Hgb 9.0 L (11.5-15.4) g/dL Hct 29.0 L (35.3-44.9) % Plt Count 172 (140-400) K/mcL Neutrophils # 3.8 (1.6-8.9) K/mcL BMP 08/06/18 06:11 Sodium 139 Potassium 4.4 Chloride 100 Carbon Dioxide 35 H BUN 22 Creatinine 0.84 Glucose 96 Calcium 8.9 - ABG Interpretation ABG results: PT/INR, D-dimer PT 10.8 Seconds (9.4-12.1) 07/31/18 10:12 - VTE Deep Vein Thrombosis/Pulmonary Embolism Present on Admission: No Consult Discharge Plan - Plan Referrals: Jamila Betts, VOCATIONAL EXAMINER [Primary Care Provider] - <Tani uDmont - Last Filed: 08/06/18 13:02> Hospitalist Progress Note - Encounter Date of Encounter: 08/06/18 - Exam Vitals: Temp Pulse Resp BP Pulse Ox 98.0 F 80 14 128/66 92 08/06/18 10:27 08/06/18 10:27 08/06/18 10:27 08/06/18 10:27 08/06/18 10:27 - Assessment and Plan (1) Hypothyroidism Current Visit: No Status: Chronic (2) Sacral decubitus ulcer Current Visit: No Status: Acute (3) Pressure ulcer of right leg, stage 3 Current Visit: No Status: Chronic (4) Cellulitis Current Visit: No Status: Acute (5) Elevated troponin Current Visit: Yes Status: Acute (6) Morbid obesity Current Visit: No Status: Chronic (7) LUBNA (acute kidney injury) Current Visit: Yes Status: Resolved (8) Hyperkalemia Current Visit: Yes Status: Resolved (9) UTI (urinary tract infection) Current Visit: Yes Status: Acute (10) Diabetes mellitus Current Visit: Yes Status: Acute (11) DVT prophylaxis Current Visit: Yes Status: Acute - Time Spent with Patient Total time spent is greater than 50% in coordination of care (as documented) at patient's floor/unit and/or counseling patient: Internal Medicine: Result - Labs CBC & Chem 7: 08/06/18 06:11 08/06/18 06:11 Labs: Short CBC 08/06/18 Range/Units 06:11 WBC 5.7 (4.3-11.1) K/mcL Hgb 9.0 L (11.5-15.4) g/dL Hct 29.0 L (35.3-44.9) % Plt Count 172 (140-400) K/mcL Neutrophils # 3.8 (1.6-8.9) K/mcL BMP 08/06/18 06:11 Sodium 139 Potassium 4.4 Chloride 100 Carbon Dioxide 35 H BUN 22 Creatinine 0.84 Glucose 96 Calcium 8.9 - ABG Interpretation ABG results: PT/INR, D-dimer PT 10.8 Seconds (9.4-12.1) 07/31/18 10:12 - Attending Attestation I examined this patient and my medical decision-making was reviewed with the Resident Physician Dr. Triana. I agree with the documented findings, disposition and treatment plan as described except to the extent set forth below. Ms. Meyers is a 77 year old female with past medical history mentioned below including diabetes mellitus type 2, morbid obesity with a BMI of 51, hypertension, hyperlipidemia, arthritis and thyroid disease who was transferred to [place] from custodial facility on July 31 with abnormal test results including increased creatinine and potassium.She also had sacral ulcer which did grow multi drug resistant organism Acinetobacter baumanni. Pt was evaluated by ID recommend to continue Unasyn and Doxy. Her CT of abd and Pelvis did not show any osteomyelitis. Her Urine cx growing Abdelrahman, so started her on Diflucan now. Pt states she is feeling better. Denied any CP / SOB Gen: A, A, O x 3 Chest: Diminished BS b/l Ext: Ulcer over Rt leg with dressing on. Open wound over Rt gluteal region <Lauren Triana - Last Filed: 08/06/18 11:23> (4) Cellulitis Qualifiers: Site of cellulitis: extremity Site of cellulitis of extremity: lower extremity Laterality: right Qualified Code(s): L03.115 - Cellulitis of right lower limb (6) UTI (urinary tract infection) Qualifiers: Urinary tract infection type: catheter-associated UTI Indwelling urinary catheter type: indwelling urethral catheter Encounter type: initial encounter Qualified Code(s): T83.511A - Infection and inflammatory reaction due to indwelling urethral catheter, initial encounter; N39.0 - Urinary tract infection , site not specified (7) Hypothyroidism Qualifiers: Hypothyroidism type: unspecified Qualified Code(s): E03.9 - Hypothyroidism, unspecified (8) Diabetes mellitus Qualifiers: Diabetes mellitus type: type 2 Diabetes mellitus intermodal dispatcher insulin use: without assisted use Diabetes mellitus complication status: with skin complications Diabetes mellitus complication detail: with other skin ulcer Qualified Code(s): E11.622 - Type 2 diabetes mellitus with other skin ulcer <Tani Dumont - Last Filed: 08/06/18 13:02> (1) Hypothyroidism Qualifiers: Hypothyroidism type: unspecified Qualified Code(s): E03.9 - Hypothyroidism, unspecified (4) Cellulitis Qualifiers: Site of cellulitis: extremity Site of cellulitis of extremity: lower extremity Laterality: right Qualified Code(s): L03.115 - Cellulitis of right lower limb (9) UTI (urinary tract infection) Qualifiers: Urinary tract infection type: catheter-associated UTI Indwelling urinary catheter type: indwelling urethral catheter Encounter type: initial encounter Qualified Code(s): T83.511A - Infection and inflammatory reaction due to indwelling urethral catheter, initial encounter; N39.0 - Urinary tract infection , site not specified (10) Diabetes mellitus Qualifiers: Diabetes mellitus type: type 2 Diabetes mellitus assisted insulin use: without assisted use Diabetes mellitus complication status: with skin complications Diabetes mellitus complication detail: with other skin ulcer Qualified Code(s): E11.622 - Type 2 diabetes mellitus with other skin ulcer
[2018-08-06] MEDS: Gentamicin Oint 15 GM TUBE TP SCH (11:33)
[2018-08-06] MEDS: Insulin LISPRO 300 UNITS/3 ML VIAL SQ SCH ×4 (11:34→21:51)
[2018-08-06] MEDS: Fluconazole 100 MG TABLET PO SCH (12:06)
[2018-08-06] MEDS: Nystatin POWDER 30 GM BOTTLE TP SCH ×3 (12:15→21:59)
[2018-08-07] MEDS: Ampicillin/Sulbactam 3,000 MG in 0.9 % Sodium Chloride Mini Bag 100 ML IVPB SCH ×3 (06:02→18:54)
[2018-08-07] MEDS: *HR* Heparin 5,000 UNIT/ML VIAL SQ SCH ×3 (06:08→21:38)
[2018-08-07 06:57] LABS: Hematocrit 31.9 % (35.3-44.9); Mean Corpuscular HGB Conc 31.3 g/dL (31.6-35.5); Mean Corpuscular Hemoglobin 30.1 pg (28.0-33.3); Mean Corpuscular Volume 96.1 fL (83.0-100.0); Mean Platelet Volume 10.7 fL (9.4-12.4); Platelet Count 176 K/mcL (140-400); Red Blood Count 3.32 M/mcL (3.82-4.97); Red Cell Distribution Width 14.4 % (11.5-14.5)
[2018-08-07] MEDS: Gabapentin 300 MG CAPSULE PO SCH ×2 (07:51→21:37)
[2018-08-07] MEDS: Fluconazole 100 MG TABLET PO SCH (07:51)
[2018-08-07] MEDS: Cholecalciferol (D-3) 1,000 UNIT TABLET PO SCH (07:51)
[2018-08-07] MEDS: Doxycycline 100 MG CAPSULE PO SCH ×2 (07:51→21:37)
[2018-08-07] MEDS: Aspirin Enteric Coated 81 MG Tablet PO SCH (07:51)
[2018-08-07] MEDS: Insulin LISPRO 300 UNITS/3 ML VIAL SQ SCH ×4 (07:52→21:25)
[2018-08-07] MEDS: Acetaminophen 325 MG TABLET PO PRN (12:44)
--- NOTE | 2018-08-07 12:50 | Discharge Summary ---
<Dave,Angie - Last Filed: 08/07/18 14:05> - NOTES TO OUTPATIENT PROVIDER Notes to Outpatient Provider: Ms. Meyers was presented to the ED from residential facility due to increased creatinine and high potassium. Since her presentatation she was found to have stage 3 sacral decubitus ulcer and ven[place] stasis of right lower extremity. CT imaging did not show concern for osteomyelitis. Infectious disease was consulted. She has completed 5 days of doxycycline and 5 days of unasyn and will require total of 14 days of therapy. Upon discharge she should continue to have dressing change of right leg cellulitis and turning. Date of Encounter: 08/07/18 Time of Encounter: 12:36 - Discharge Diagnosis (1) Hypothyroidism Priority: Secondary Status: Chronic Qualifiers: Hypothyroidism type: unspecified Qualified Code(s): E03.9 - Hypothyroidism , unspecified (2) Pressure ulcer of right leg, stage 3 Priority: Secondary Status: Chronic (3) Cellulitis Priority: Secondary Status: Acute Qualifiers: Site of cellulitis: extremity Site of cellulitis of extremity: lower extremity Laterality: right Qualified Code(s): L03.115 - Cellulitis of right lower limb (4) Morbid obesity Priority: Secondary Status: Chronic (5) LUBNA (acute kidney injury) Priority: Secondary Status: Resolved (6) Hyperkalemia Priority: Secondary Status: Resolved (7) UTI (urinary tract infection) Priority: Secondary Status: Acute Qualifiers: Urinary tract infection type: catheter-associated UTI Indwelling urinary catheter type: indwelling urethral catheter Encounter type: initial encounter Qualified Code(s): T83.511A - Infection and inflammatory reaction due to indwelling urethral catheter, initial encounter; N39.0 - Urinary tract infection , site not specified (8) Diabetes mellitus Priority: Secondary Status: Chronic Qualifiers: Diabetes mellitus type: type 2 Diabetes mellitus [facility] insulin use: without [facility] use Diabetes mellitus complication status: with skin complications Diabetes mellitus complication detail: with other skin ulcer Qualified Code(s): E11.622 - Type 2 diabetes mellitus with other skin ulcer (9) DVT prophylaxis Priority: Secondary Status: Resolved (10) Sacral decubitus ulcer Priority: Primary Status: Acute Qualifiers: Pressure injury stage: unspecified pressure injury stage Qualified Code(s) : L89.159 - Pressure ulcer of sacral region, unspecified stage Hospital course: Ms. Meyers is a 77 year old female who was presented to the ED from residential facility for hyperkalemia and increased creatinine. CT of the abdomen and pelvis on 08/04/18 showed ulceration in the lower back superficial to the right SI joint but no osyeomyelitis. Her wound culture was positive for Acinetobacter baumanni multi drug resistant, susceptible to unasyn. For the LUBNA her retroperitoneal ultrasound was unremarkable. She was also found to have abdelrahman parapsilosis UTI. Infectious disease was consulted for her infection and they recommended continuing unasyn for 14 days total and doxycycline for 14 days total. She will also receive total of 4 day therapy for the UTI. This morning she is not complaining of much and has good urinary output. She will continue to require wound care for the ulcer and cellulitis with frequent turning in bed. Discharge discussed with: patient Time spent discussing smoking cessation with patient: more than 10 minutes - Time Spent with Patient Total time spent providing and/or coordinating discharge services: Less than 30 minutes - Discharge Medications Prescriptions: Ampicillin/Sulbactam [Unasyn] 3,000 mg IVPB Q6HR 9 Days #9 vial Collagenase Oint [Santyl] 1 appl TP DAILY 10 Days #1 tube Doxycycline 100 mg PO BID 9 Days #18 capsule Fluconazole [Diflucan] 100 mg PO DAILY 1 Days #1 tablet Gentamicin Oint [Garamycin] 1 appl TP DAILY 10 Days #1 tube Nystatin POWDER [Nystop] 1 appl TP TID 10 Days #1 bottle Home Medications: Aspirin Enteric Coated [Aspirin EC] 81 mg PO DAILY 05/16/18 [History] Cholecalciferol (D-3) [Vitamin D] 1,000 unit PO DAILY 05/16/18 [History] Furosemide [Lasix] 40 mg PO BID 05/16/18 [History] Gabapentin [Neurontin] 300 mg PO BID 05/16/18 [History] Levothyroxine [Synthroid] 150 mcg PO DAILY 05/16/18 [History] Multivitamin [One Daily Multivitamin] 1 tab PO DAILY 05/16/18 [History] Potassium Chloride [Klor-Con 10] 10 meq PO BID 05/16/18 [History] Simvastatin [Zocor] 20 mg PO HS 05/16/18 [History] DiphenhydraMINE [Benadryl] 25 mg PO Q6HR PRN capsule 05/19/18 [Rx] Acetaminophen [Tylenol] 650 mg PO Q6HR PRN 07/31/18 [History] Lisinopril [Zestril] 10 mg PO DAILY 07/31/18 [History] Spironolactone [Aldactone] 25 mg PO DAILY 07/31/18 [History] Whey Protein Isolate [Unjury] 2 pack PO BID 07/31/18 [History] Ampicillin/Sulbactam [Unasyn] 3,000 mg IVPB Q6HR 9 Days #9 vial 08/07/18 [Rx] Collagenase Oint [Santyl] 1 appl TP DAILY 10 Days #1 tube 08/07/18 [Rx] Doxycycline 100 mg PO BID 9 Days #18 capsule 08/07/18 [Rx] Fluconazole [Diflucan] 100 mg PO DAILY 1 Days #1 tablet 08/07/18 [Rx] Gentamicin Oint [Garamycin] 1 appl TP DAILY 10 Days #1 tube 08/07/18 [Rx] Nystatin POWDER [Nystop] 1 appl TP TID 10 Days #1 bottle 08/07/18 [Rx] Allergies/Adverse Reactions: 3 Allergy/AdvReac Type Severity Reaction Status Date / Time Sulfa (Sulfonamide Allergy Rash Verified 07/31/18 11:38 Antibiotics) Date of admission: 07/31/18 17:38 Primary care physician: Jamila Betts CNP Consults: 07/31/18 17:58 Consult to Wound Care [CONS] Routine Reason for Consult: Packing to sacral wound, ulceration to right ankle Call Completed: No 08/01/18 16:47 Consult to Wound Care [CONS] Routine Reason for Consult: RLE ulcer, sacral ulcer Call Completed: No 08/02/18 11:17 Consult to Infectious Diseases [CONS] Routine Consulting Provider: Infectious Disease [facility] Reason for Consult: Acinetobacter multi-drug resistant culture to buttock wound Call Completed: No 08/05/18 14:25 Consult to Occupational Therapy [CONS] Routine Comment: Evaluate, develop and implement POC Reason for Consult: evaluate mobility Does patient have active BEDREST order?: No Is patient medically & hemodynamically stable?: Yes Patient assessed for mobility or mobilized this visit?: No Consult to Physical Therapy [CONS] Routine Comment: Evaluate, develop and implement POC Reason for Consult: evaluate mobility Does patient have active BEDREST order?: No Is patient medically & hemodynamically stable?: Yes Patient assessed for mobility or mobilized this visit?: No 08/06/18 18:31 Consult to PICC team [Consult to Invasive Line Access Team] [CONS] Routine Reason for Consult: No IV access Line Type: EPIV 08/07/18 10:08 Consult to Invasive Line Access Team [CONS] Routine Reason for Consult: Outpt. antibiotics Line Type: Midline Discharging clinician: Angie Acosta Anticipated date of discharge: 08/07/18 - Constitutional Vitals: Temp Pulse Resp BP Pulse Ox 97.7 F 61 18 127/76 95 08/07/18 10:09 08/07/18 10:09 08/07/18 10:09 08/07/18 10:09 08/07/18 10:09 General appearance: Present: A&O X 3, morbidly obese, answers questions appropriately Exam: Awake and alert, oriented to person, place and time - Head Head exam: Present: atraumatic - Eye Eye exam: Present: normal appearance, sclera anicteric Additional comments: vision intact - Respiratory Respiratory exam: Present: CTAB. Absent: rhonchi, wheezes - Cardiovascular Cardiovascular exam: Present: RRR, +S1, +S2 - GI/Abdominal GI/Abdominal exam: Present: normal bowel sounds, soft. Absent: tenderness - Extremities Exam Extremities exam: Present: warm. Absent: calf tenderness Additional comments: Erythema at the right lower leg, unchanged from previous demarcation - Neurological Exam Neurological exam: Present: alert, oriented X3 - Psychiatric Psychiatric exam: Present: normal affect, normal mood - Skin Additional comments: stage 2 decubitus sacral ulcer. There is erythema around the right superior aspect of the buttocks. Erythema of the right lower leg, unchanged from previous marking. - Patient Status Disposition: Transfer SNF Condition: Fair Overall status at discharge: patient is progressing back to baseline - Discharge Instructions Follow Up With: Jamila Hernandez CNP [Advanced Practice Nurse] - 08/24/18 9:20 am Jamila Betts CNP [Primary Care Provider] - - Diet and Activity Activity: as per physical therapy Diet: diabetic diet - VTE Deep Vein Thrombosis/Pulmonary Embolism Present on Admission: No <Tani Dumont - Last Filed: 08/07/18 18:06> Date of Encounter: 08/07/18 - Discharge Diagnosis (1) Hypothyroidism Status: Chronic Qualifiers: Hypothyroidism type: unspecified Qualified Code(s): E03.9 - Hypothyroidism , unspecified (2) Pressure ulcer of right leg, stage 3 Status: Chronic (3) Cellulitis Status: Acute Qualifiers: Site of cellulitis: extremity Site of cellulitis of extremity: lower extremity Laterality: right Qualified Code(s): L03.115 - Cellulitis of right lower limb (4) Morbid obesity Status: Chronic (5) LUBNA (acute kidney injury) Status: Resolved (6) Hyperkalemia Status: Resolved (7) UTI (urinary tract infection) Status: Acute Qualifiers: Urinary tract infection type: catheter-associated UTI Indwelling urinary catheter type: indwelling urethral catheter Encounter type: initial encounter Qualified Code(s): T83.511A - Infection and inflammatory reaction due to indwelling urethral catheter, initial encounter; N39.0 - Urinary tract infection , site not specified (8) Diabetes mellitus Status: Chronic Qualifiers: Diabetes mellitus type: type 2 Diabetes mellitus technician terminal and repeater insulin use: without technician terminal and repeater use Diabetes mellitus complication status: with skin complications Diabetes mellitus complication detail: with other skin ulcer Qualified Code(s): E11.622 - Type 2 diabetes mellitus with other skin ulcer (9) DVT prophylaxis Status: Resolved (10) Sacral decubitus ulcer Status: Acute Qualifiers: Pressure injury stage: unspecified pressure injury stage Qualified Code(s) : L89.159 - Pressure ulcer of sacral region, unspecified stage Hospital course: Ms. Meyers is a 77 year old female - Time Spent with Patient Total time spent providing and/or coordinating discharge services: Date of admission: 07/31/18 17:38 Primary care physician: Jamila Betts CNP Consults: 07/31/18 17:58 Consult to Wound Care [CONS] Routine Reason for Consult: Packing to sacral wound, ulceration to right ankle Call Completed: No 08/01/18 16:47 Consult to Wound Care [CONS] Routine Reason for Consult: RLE ulcer, sacral ulcer Call Completed: No 08/02/18 11:17 Consult to Infectious Diseases [CONS] Routine Consulting Provider: Infectious Disease [place] Reason for Consult: Acinetobacter multi-drug resistant culture to buttock wound Call Completed: No 08/05/18 14:25 Consult to Occupational Therapy [CONS] Routine Comment: Evaluate, develop and implement POC Reason for Consult: evaluate mobility Does patient have active BEDREST order?: No Is patient medically & hemodynamically stable?: Yes Patient assessed for mobility or mobilized this visit?: No Consult to Physical Therapy [CONS] Routine Comment: Evaluate, develop and implement POC Reason for Consult: evaluate mobility Does patient have active BEDREST order?: No Is patient medically & hemodynamically stable?: Yes Patient assessed for mobility or mobilized this visit?: No 08/06/18 18:31 Consult to PICC team [Consult to Invasive Line Access Team] [CONS] Routine Reason for Consult: No IV access Line Type: EPIV 08/07/18 10:08 Consult to Invasive Line Access Team [CONS] Routine Reason for Consult: Outpt. antibiotics Line Type: Midline - Constitutional Vitals: Temp Pulse Resp BP Pulse Ox 97.7 F 61 18 127/76 95 08/07/18 10:09 08/07/18 10:09 08/07/18 10:09 08/07/18 10:08/07/18 10:09 - Attending Attestation I examined this patient and my medical decision-making was reviewed with the Resident Physician Dr. Acosta. I agree with the documented findings, disposition and treatment plan as described except to the extent set forth below. Ms. Meyers is a 77 year old female with past medical history mentioned below including diabetes mellitus type 2, morbid obesity with a BMI of 51, hypertension, hyperlipidemia, arthritis and thyroid disease who was transferred to [place] from residential facility on July 31 with abnormal test results including increased creatinine and potassium.She also had sacral ulcer which did grow multi drug resistant organism Acinetobacter baumanni. Pt was evaluated by ID recommend to continue Unasyn and Doxy. Her CT of abd and Pelvis did not show any osteomyelitis. Her Urine cx growing Abdelrahman, so started her on Diflucan . Pt states she is feeling better. Denied any CP / SOB. ID recommend 2 weeks of IV Unasyn and Doxy, so will d.c her back to [facility] today with 2 weeks Unasyn and f/u with ID as an out pt Gen: A, A, O x 3 Chest: Diminished BS b/l Ext: Ulcer over Rt leg with dressing on. Open wound over Rt gluteal region
--- NOTE | 2018-08-07 14:36 | Infectious Disease Progress No ---
Date of Encounter: 08/07/18 Time of Encounter: 10:35 - Assessment and Plan (1) Sacral decubitus ulcer Current Visit: Yes Status: Acute Location sacrum. Wound culture positive for multidrug resistant Acinetobacter baumannii. Concern for osteomyelitis of the underlying bone due to clinical picture and elevated inflammatory markers (ESR 92, CRP 19), although CT of the abdomen and pelvis negative for osteo. Unfortunately, the patient cannot tolerate lying flat to do an MRI. Recommend dressing changes per wound care evaluation. Recommend aggressive offloading and every 2 hours turns. Continue Unasyn 3.375 g IV every 8 hours. Duration of treatment depends on the clinical picture. We will see the patient in the office in two weeks and evaluate her clinically and check labs and see how things are going and decide on further treatment at that point. Continue IV antibiotics until evaluated by ID. Monitor renal function for drug toxicity and dose adjust antibiotics. Consult VAT for midlline placement. Will need weekly CBC, BUN/Cr, ESR, and CRP. Will need weekly midline care per protocol. Follow up with ID 08/24/18 at 0920. Qualifiers: Pressure injury stage: unspecified pressure injury stage Qualified Code(s) : L89.159 - Pressure ulcer of sacral region, unspecified stage (2) Cellulitis Current Visit: No Status: Acute Location: Right lower extremity. Likely secondary to chronic nonhealing venous stasis ulcers. Causative organism: Unclear. Clinically improved. Continue Unasyn 3 g IV every 6 hours. Continue doxycycline 100 mg by mouth twice a day. (day 5) Duration of treatment depends on the clinical picture, but likely a total 14 days for the oral doxycycline. Duration of Unasyn to be determined as stated above. Monitor renal function and dose adjust antibiotics. Qualifiers: Site of cellulitis: extremity Site of cellulitis of extremity: lower extremity Laterality: right Qualified Code(s): L03.115 - Cellulitis of right lower limb (3) LUBNA (acute kidney injury) Current Visit: Yes Status: Resolved Etiology unclear. Resolved. (4) Pressure ulcer of right leg, stage 3 Current Visit: No Status: Chronic Recommend aggressive wound care and dressing changes. (5) Hypothyroidism Current Visit: No Status: Chronic Qualifiers: Hypothyroidism type: unspecified Qualified Code(s): E03.9 - Hypothyroidism , unspecified (6) Elevated troponin Current Visit: Yes Status: Deleted (7) Allergy to antibiotic Current Visit: Yes Status: Acute Allergies to sulfa. Exact reaction not known (8) Diabetes mellitus type 2 in obese Current Visit: Yes Status: Chronic Recommend aggressive glucose monitoring and control to promote wound healing and prevent reinfection. Management per the primary team. (9) Morbid obesity Current Visit: No Status: Chronic - Subjective Interval history: Patient seen and examined. No acute events noted overnight. Patient states overall she feels well. She denies any fevers or chills or rigors. She denies any chest pain, shortness of breath, or cough. She denies any nausea, vomiting , diarrhea, constipation. She states her last bowel movement was 2 days ago and was a little loose. She denies any abdominal pain, urinary complaints, appetite changes. She does report some mild pain in the right lower extremity. She denies any oral thrush or new skin lesions. Infect Dis PN-Objective Data - Labs CBC & Chem 7: 08/07/18 06:39 08/06/18 06:11 Labs: Laboratory Results - last 24 hr 08/05/18 08/05/18 08/06/18 11:55 19:18 16:26 WBC RBC Hgb Hct MCV MCH MCHC RDW Plt Count MPV POC Glucose 127 H 131 H 115 H 08/06/18 08/07/18 08/07/18 21:03 06:39 07:22 WBC 6.8 RBC 3.32 L Hgb 10.0 L Hct 31.9 L MCV 96.1 MCH 30.1 MCHC 31.3 L RDW 14.4 Plt Count 176 MPV 10.7 POC Glucose 107 H 118 H 08/07/18 11:20 WBC RBC Hgb Hct MCV MCH MCHC RDW Plt Count MPV POC Glucose 131 H Cultures: Serology 08/02/18 08/01/18 08/01/18 Range/Units 12:05 09:45 09:10 Urine Creatinine 71 mg/dL Protein/Creatinin Ratio 0.41 H (0.00-0.20) mg/mg Urine Total Protein 29 H (1-14) mg/dL Nasal Screen MRSA (PCR) Negative Negative (Negative) Exam - Constitutional Vitals: Temp Pulse Resp BP Pulse Ox 97.7 F 61 18 127/76 95 08/07/18 10:09 08/07/18 10:09 08/07/18 10:08/07/18 10:09 08/07/18 10:09 General appearance: cooperative, morbidly obese, no acute distress - Head Head exam: Present: atraumatic, normal inspection, normocephalic - Eye Eye exam: Present: EOMI, normal appearance, PERRL Pupils: Present: normal accommodation - ENT ENT exam: Present: mucous membranes moist - Neck Neck exam: Present: normal inspection - Respiratory Respiratory exam: Present: CTAB. Absent: rales, respiratory distress, rhonchi, wheezes - Cardiovascular Cardiovascular exam: Present: RRR, +S1, +S2 - GI/Abdominal GI/Abdominal exam: Present: distended (obese), normal bowel sounds, soft. Absent: tenderness Additional comments: Steel catheter noted to be draining clear yellow urine. - Extremities Exam Extremities exam: Absent: joint swelling, normal inspection (Venous stasis dermatitis noted to the BLE. Cellulitis to the RLE improved.), pedal edema, tenderness - Neurological Exam Neurological exam: Present: alert, oriented X3, no focal deficits - Psychiatric Psychiatric exam: Present: normal affect, normal mood - Skin Skin exam: Present: dry, intact, normal color, warm - VTE Deep Vein Thrombosis/Pulmonary Embolism Present on Admission: No Consult Discharge Plan - Plan Referrals: Jamila Betts CNP [Primary Care Provider] - Jamila Hernandez CNP [Advanced Practice Nurse] - 08/24/18 9:20 am Prescriptions: Ampicillin/Sulbactam [Unasyn] 3,000 mg IVPB Q6HR 9 Days #9 vial Collagenase Oint [Santyl] 1 appl TP DAILY 10 Days #1 tube Doxycycline 100 mg PO BID 9 Days #18 capsule Fluconazole [Diflucan] 100 mg PO DAILY 1 Days #1 tablet Gentamicin Oint [Garamycin] 1 appl TP DAILY 10 Days #1 tube Nystatin POWDER [Nystop] 1 appl TP TID 10 Days #1 bottle - Attending Attestation I examined this patient and my medical decision-making was reviewed with the Resident Physician. I agree with the documented findings, disposition and treatment plan as described except to the extent set forth below.
--- NOTE | 2018-08-07 17:13 | Physician Discharge Referral ---
ExtendedCare Referral Info Transfer To: F Provider in Charge after Transfer: PCP Institutional Level of Care: Skilled - Diagnosis (1) Sacral decubitus ulcer Priority: Primary Status: Acute (2) Hypothyroidism Priority: Secondary Status: Chronic (3) Pressure ulcer of right leg, stage 3 Priority: Secondary Status: Chronic (4) Cellulitis Priority: Secondary Status: Acute (5) Morbid obesity Priority: Secondary Status: Chronic (6) LUBNA (acute kidney injury) Priority: Secondary Status: Resolved (7) Hyperkalemia Priority: Secondary Status: Resolved (8) UTI (urinary tract infection) Priority: Secondary Status: Acute (9) Diabetes mellitus Priority: Secondary Status: Chronic (10) DVT prophylaxis Priority: Secondary Status: Resolved - Transfer Medications Prescriptions: Ampicillin/Sulbactam [Unasyn] 3,000 mg IVPB Q6HR 9 Days #9 vial Collagenase Oint [Santyl] 1 appl TP DAILY 10 Days #1 tube Doxycycline 100 mg PO BID 9 Days #18 capsule Fluconazole [Diflucan] 100 mg PO DAILY 1 Days #1 tablet Gentamicin Oint [Garamycin] 1 appl TP DAILY 10 Days #1 tube Nystatin POWDER [Nystop] 1 appl TP TID 10 Days #1 bottle Home Medications: Aspirin Enteric Coated [Aspirin EC] 81 mg PO DAILY 05/16/18 [History] Cholecalciferol (D-3) [Vitamin D] 1,000 unit PO DAILY 05/16/18 [History] Furosemide [Lasix] 40 mg PO BID 05/16/18 [History] Gabapentin [Neurontin] 300 mg PO BID 05/16/18 [History] Levothyroxine [Synthroid] 150 mcg PO DAILY 05/16/18 [History] Multivitamin [One Daily Multivitamin] 1 tab PO DAILY 05/16/18 [History] Potassium Chloride [Klor-Con 10] 10 meq PO BID 05/16/18 [History] Simvastatin [Zocor] 20 mg PO HS 05/16/18 [History] DiphenhydraMINE [Benadryl] 25 mg PO Q6HR PRN capsule 05/19/18 [Rx] Acetaminophen [Tylenol] 650 mg PO Q6HR PRN 07/31/18 [History] Lisinopril [Zestril] 10 mg PO DAILY 07/31/18 [History] Spironolactone [Aldactone] 25 mg PO DAILY 07/31/18 [History] Whey Protein Isolate [Unjury] 2 pack PO BID 07/31/18 [History] Ampicillin/Sulbactam [Unasyn] 3,000 mg IVPB Q6HR 9 Days #9 vial 08/07/18 [Rx] Collagenase Oint [Santyl] 1 appl TP DAILY 10 Days #1 tube 08/07/18 [Rx] Doxycycline 100 mg PO BID 9 Days #18 capsule 08/07/18 [Rx] Fluconazole [Diflucan] 100 mg PO DAILY 1 Days #1 tablet 08/07/18 [Rx] Gentamicin Oint [Garamycin] 1 appl TP DAILY 10 Days #1 tube 08/07/18 [Rx] Nystatin POWDER [Nystop] 1 appl TP TID 10 Days #1 bottle 08/07/18 [Rx] Allergies/Adverse Reactions: 3 Allergy/AdvReac Type Severity Reaction Status Date / Time Sulfa (Sulfonamide Allergy Rash Verified 07/31/18 11:38 Antibiotics) - Respiratory Orders Smoking Cessation: Smoking cessation has been advised. For more information, call the [place] Tobacco Quit Line at 6-397-HOCF-NOW. - Advance Directives Code Status: Full Code - Mobility Orders Other (Continue to allow turning in bed or in chair to heal sacral ulcer. Apply prescribed ointments) - Rehabiliation Orders Rehab Orders: Evaluation for Physical Therapy - Treatments Skin tear care topically daily PRN per policy (Has a sacral decubitus ulcer, will need frequnt turning) - Diet Orders No Concentrated Sweets (Diabetic) CERTIFICATION: I certify that the transfer of the above named patient to an Extended Care Facility is necessary for the continuing treatment of the diagnosis listed. The above information is true and accurate reflection of patient's current condition. Confidential - Redisclosure prohibited without a patient's written consent.
[2018-08-07] MEDS: Nystatin POWDER 30 GM BOTTLE TP SCH ×3 (18:56→21:38)
[2018-08-07] MEDS: Gentamicin Oint 15 GM TUBE TP SCH (18:56)
[2018-08-08] MEDS: *HR* Heparin 5,000 UNIT/ML VIAL SQ SCH ×2 (06:00→12:59)
[2018-08-08] MEDS: Ampicillin/Sulbactam 3,000 MG in 0.9 % Sodium Chloride Mini Bag 100 ML IVPB SCH ×3 (06:01→12:02)
[2018-08-08] MEDS: Insulin LISPRO 300 UNITS/3 ML VIAL SQ SCH ×3 (08:34→17:01)
--- NOTE | 2018-08-08 08:35 | Internal Med Progress Note ---
<Angie Acosta - Last Filed: 08/08/18 17:06> Hospitalist Progress Note - Encounter Date of Encounter: 08/08/18 Time of Encounter: 08:30 - Subjective Interval History: Ms. Meyers is a 77 year old female who was presented to the ED from senior care facility for hyperkalemia and increased creatinine of 07/31/18. CT of the abdomen and pelvis on 08/04/18 showed ulceration in the lower back superficial to the right SI joint but no osyeomyelitis. Her wound culture was positive for Acinetobacter baumanni multi drug resistant, susceptible to unasyn. For the LUBNA her retroperitoneal ultrasound was unremarkable. She was also found to have abdelrahman parapsilosis UTI. Infectious disease was consulted for her infection and they recommended continuing unasyn for 14 days total and doxycycline for 14 days total and she is on day 6 for unasyn and day 6 for doxycycline. This morning she is awake and alert and not complaining of much. She denied fever, chills, nausea, emesis, shortness of breath, chest pain, paresthesis or abdominal pain. - Exam Vitals: Temp Pulse Resp BP Pulse Ox 97.6 F 61 14 108/57 91 08/08/18 06:35 08/08/18 06:35 08/08/18 06:35 08/08/18 06:35 08/08/18 06:35 Exam: Constitutional: Alert, in no acute distress HEENT: Normocephalic, atraumatic, moist mucous membrane Heart: Normal, regular rate and rhythm, no murmurs Lungs: lungs clear and equal bilaterally Abdomen: Soft, non distended, non tender Extremities: No edema, no clubbing, venous stasis of bilateral lower legs Skin: Right lower leg wrapped due to healing ulcer, no rashes, no jaundice Psych: thought content congruent, appropriate affect Neurologic: awake, alert, oriented to person, place and time - Assessment and Plan (1) Hypothyroidism Current Visit: No Status: Chronic Assessment and Plan: History of hypothyroidism, continue home synthroid (2) Pressure ulcer of right leg, stage 3 Current Visit: No Status: Chronic Assessment and Plan: Ms. Meyers is bed bound and does not move much other than getting into a chair which has led to her ulcerations Continue wound care with dressing changes and continue turning Q2 turning. (3) Cellulitis Current Visit: No Status: Acute Assessment and Plan: Right lower extremity cellulitis secondary to venous stasis ulcers. Plan: Continue doxycycline day 6 (4) Morbid obesity Current Visit: No Status: Chronic Assessment and Plan: Lifestyle modification. Continue diabetic diet. (5) LUBNA (acute kidney injury) Current Visit: Yes Status: Resolved Assessment and Plan: Ad admission she was taking lasix, spironolactone, lisinopril and vancomycin so the likely cause of the LUBNA is nephrotoxinx. Her LUBNA is now resolved. Retroperitoneal ultrasound on 08/01 was unremarkable. Plan: Continue to monitor and avoid nephrotoxins (6) Hyperkalemia Current Visit: Yes Status: Resolved Assessment and Plan: Resolved (7) UTI (urinary tract infection) Current Visit: Yes Status: Acute Assessment and Plan: Urine culture grew abdelrahman parapsilosis. Today she will have received 4 days of diflucan, which will complete her therapy. (8) Diabetes mellitus Current Visit: Yes Status: Chronic Assessment and Plan: History of type 2 diabetes. Her glucose well-controlled at this time. A1C 6.1 Plan: Continue with low-dose sliding scale insulin, ADA diet, ACHS Accu checks (9) DVT prophylaxis Current Visit: Yes Status: Resolved Assessment and Plan: Heparin SQ (10) Sacral decubitus ulcer Current Visit: Yes Status: Acute Assessment and Plan: patient is from senior care, morbidly obese, and is bedbound. 08/04/18 CT abdomen/pelvis was done to rule out ostoemyelitis. CT showed ulceration in the lower back superficial to the right SI joint, suspected adjacent cellulitis. No evidence of osteomyelitis. Blood cultures from 07/31/18 x2: no growth. Anaerobic cultures negative wound culture grew Acinetobacter baumanni MDRO. S: unasyn Plan: Continue Unasyn (day 6) total of 14 day therapy Continue doxycycline (day 6) total of 14 day therapy wound care, dressing changes per wound care recs q2H turning PT/OT DVT Prophylaxis: Heparin - Time Spent with Patient Total time spent is greater than 50% in coordination of care (as documented) at patient's floor/unit and/or counseling patient: less than 15 minutes Plan of Care Discussed with: patient Internal Medicine: Result - Labs CBC & Chem 7: 08/07/18 06:39 08/06/18 06:11 - ABG Interpretation ABG results: PT/INR, D-dimer PT 10.8 Seconds (9.4-12.1) 07/31/18 10:12 - VTE Deep Vein Thrombosis/Pulmonary Embolism Present on Admission: No Consult Discharge Plan - Plan Referrals: Jamila Hernandez CNP [Advanced Practice Nurse] - 08/24/18 9:20 am Jamila Betts CNP [Primary Care Provider] - Prescriptions: Ampicillin/Sulbactam [Unasyn] 3,000 mg IVPB Q6HR 9 Days #9 vial Collagenase Oint [Santyl] 1 appl TP DAILY 10 Days #1 tube Doxycycline 100 mg PO BID 9 Days #18 capsule Fluconazole [Diflucan] 100 mg PO DAILY 1 Days #1 tablet Gentamicin Oint [Garamycin] 1 appl TP DAILY 10 Days #1 tube Nystatin POWDER [Nystop] 1 appl TP TID 10 Days #1 bottle <RaymundoHilton - Last Filed: 08/08/18 17:50> Hospitalist Progress Note - Encounter Date of Encounter: 08/08/18 - Exam Vitals: Temp Pulse Resp BP Pulse Ox 98.0 F 72 16 124/74 90 08/08/18 14:55 08/08/18 14:55 08/08/18 14:55 08/08/18 14:55 08/08/18 14:55 - Assessment and Plan (1) Hypothyroidism Current Visit: No Status: Chronic (2) Pressure ulcer of right leg, stage 3 Current Visit: No Status: Chronic (3) Cellulitis Current Visit: No Status: Acute (4) Morbid obesity Current Visit: No Status: Chronic (5) LUBNA (acute kidney injury) Current Visit: Yes Status: Resolved (6) Hyperkalemia Current Visit: Yes Status: Resolved (7) UTI (urinary tract infection) Current Visit: Yes Status: Acute (8) Diabetes mellitus Current Visit: Yes Status: Chronic (9) DVT prophylaxis Current Visit: Yes Status: Resolved (10) Sacral decubitus ulcer Current Visit: Yes Status: Acute - Time Spent with Patient Total time spent is greater than 50% in coordination of care (as documented) at patient's floor/unit and/or counseling patient: Internal Medicine: Result - Labs CBC & Chem 7: 08/07/18 06:39 08/06/18 06:11 - ABG Interpretation ABG results: PT/INR, D-dimer PT 10.8 Seconds (9.4-12.1) 07/31/18 10:12 - Attending Attestation I have seen and examined this pt independently. I have discussed with resident physician Dr. Acosta regarding the management plan. Agree with the documentation. Pt has been discharged already but waiting for special bed/mattress in [place], plan to go to [place] today. Cont Unasyn and doxycycline as scheduled <Angie Acosta - Last Filed: 08/08/18 17:06> (1) Hypothyroidism Qualifiers: Hypothyroidism type: unspecified Qualified Code(s): E03.9 - Hypothyroidism, unspecified (3) Cellulitis Qualifiers: Site of cellulitis: extremity Site of cellulitis of extremity: lower extremity Laterality: right Qualified Code(s): L03.115 - Cellulitis of right lower limb (7) UTI (urinary tract infection) Qualifiers: Urinary tract infection type: catheter-associated UTI Indwelling urinary catheter type: indwelling urethral catheter Encounter type: initial encounter Qualified Code(s): T83.511A - Infection and inflammatory reaction due to indwelling urethral catheter, initial encounter; N39.0 - Urinary tract infection , site not specified (8) Diabetes mellitus Qualifiers: Diabetes mellitus type: type 2 Diabetes mellitus long chain beamer insulin use: without assisted use Diabetes mellitus complication status: with skin complications Diabetes mellitus complication detail: with other skin ulcer Qualified Code(s): E11.622 - Type 2 diabetes mellitus with other skin ulcer (10) Sacral decubitus ulcer Qualifiers: Pressure injury stage: unspecified pressure injury stage Qualified Code(s): L89.159 - Pressure ulcer of sacral region, unspecified stage <Hilton Fonseca - Last Filed: 08/08/18 17:50> (1) Hypothyroidism Qualifiers: Hypothyroidism type: unspecified Qualified Code(s): E03.9 - Hypothyroidism, unspecified (3) Cellulitis Qualifiers: Site of cellulitis: extremity Site of cellulitis of extremity: lower extremity Laterality: right Qualified Code(s): L03.115 - Cellulitis of right lower limb (7) UTI (urinary tract infection) Qualifiers: Urinary tract infection type: catheter-associated UTI Indwelling urinary catheter type: indwelling urethral catheter Encounter type: initial encounter Qualified Code(s): T83.511A - Infection and inflammatory reaction due to indwelling urethral catheter, initial encounter; N39.0 - Urinary tract infection , site not specified (8) Diabetes mellitus Qualifiers: Diabetes mellitus type: type 2 Diabetes mellitus assisted insulin use: without long chain beamer use Diabetes mellitus complication status: with skin complications Diabetes mellitus complication detail: with other skin ulcer Qualified Code(s): E11.622 - Type 2 diabetes mellitus with other skin ulcer (10) Sacral decubitus ulcer Qualifiers: Pressure injury stage: unspecified pressure injury stage Qualified Code(s): L89.159 - Pressure ulcer of sacral region, unspecified stage
[2018-08-08] MEDS: Aspirin Enteric Coated 81 MG Tablet PO SCH (08:48)
[2018-08-08] MEDS: Gabapentin 300 MG CAPSULE PO SCH (08:48)
[2018-08-08] MEDS: Fluconazole 100 MG TABLET PO SCH (08:49)
[2018-08-08] MEDS: Doxycycline 100 MG CAPSULE PO SCH (08:49)
[2018-08-08] MEDS: Gentamicin Oint 15 GM TUBE TP SCH (08:50)
[2018-08-08] MEDS: Nystatin POWDER 30 GM BOTTLE TP SCH (08:51)
--- NOTE | 2018-08-08 10:38 | Infectious Disease Progress No ---
Date of Encounter: 08/08/18 Time of Encounter: 09:45 - Assessment and Plan (1) Sacral decubitus ulcer Current Visit: Yes Status: Acute Location sacrum. Wound culture positive for multidrug resistant Acinetobacter baumannii. Concern for osteomyelitis of the underlying bone due to clinical picture and elevated inflammatory markers (ESR 92, CRP 19), although CT of the abdomen and pelvis negative for osteo. Unfortunately, the patient cannot tolerate lying flat to do an MRI. Recommend dressing changes per wound care evaluation. Recommend aggressive offloading and every 2 hours turns. Continue Unasyn 3. g IV every 6 hours. (day 7) Duration of treatment depends on the clinical picture. We will see the patient in the office in two weeks and evaluate her clinically and check labs and see how things are going and decide on further treatment at that point. Continue IV antibiotics until evaluated by ID. Monitor renal function for drug toxicity and dose adjust antibiotics. Midline placed 08/07/18. Will need weekly CBC, BUN/Cr, ESR, and CRP. Will need weekly midline care per protocol. Follow up with ID 08/24/18 at 0920. Qualifiers: Pressure injury stage: unspecified pressure injury stage Qualified Code(s) : L89.159 - Pressure ulcer of sacral region, unspecified stage (2) Cellulitis Current Visit: No Status: Acute Location: Right lower extremity. Likely secondary to chronic nonhealing venous stasis ulcers. Causative organism: Unclear. Clinically improved. Continue Unasyn 3 g IV every 6 hours. Continue doxycycline 100 mg by mouth twice a day. (day 6) Duration of treatment depends on the clinical picture, but likely a total 14 days for the oral doxycycline. Duration of Unasyn to be determined as stated above. Monitor renal function and dose adjust antibiotics. Qualifiers: Site of cellulitis: extremity Site of cellulitis of extremity: lower extremity Laterality: right Qualified Code(s): L03.115 - Cellulitis of right lower limb (3) Candiduria Current Visit: Yes Status: Acute Urine culture positive for C. parapsilosis. No indication to treat. Discontinue fluconazole. (4) LUBNA (acute kidney injury) Current Visit: Yes Status: Resolved Etiology unclear. Resolved. (5) Pressure ulcer of right leg, stage 3 Current Visit: No Status: Chronic Recommend aggressive wound care and dressing changes. (6) Hypothyroidism Current Visit: No Status: Chronic Qualifiers: Hypothyroidism type: unspecified Qualified Code(s): E03.9 - Hypothyroidism , unspecified (7) Allergy to antibiotic Current Visit: Yes Status: Acute Allergies to sulfa. Exact reaction not known (8) Diabetes mellitus type 2 in obese Current Visit: Yes Status: Chronic Recommend aggressive glucose monitoring and control to promote wound healing and prevent reinfection. Management per the primary team. (9) Morbid obesity Current Visit: No Status: Chronic - Subjective Interval history: Patient seen and examined with nursing students at bedside. No acute events noted overnight. Patient states overall she feels well. She denies any fevers or chills or rigors. She denies any chest pain, shortness of breath, or cough. She denies any nausea, vomiting, diarrhea, constipation. She states unsure when her last BM was. She denies any abdominal pain, urinary complaints, appetite changes. Reports RLE pain improved. She denies any oral thrush or new skin lesions. Infect Dis PN-Objective Data - Labs CBC & Chem 7: 08/07/18 06:39 08/06/18 06:11 Labs: Laboratory Results - last 24 hr 08/06/18 08/07/18 08/07/18 21:03 11:20 16:26 POC Glucose 107 H 131 H 128 H 08/07/18 08/08/18 20:41 07:30 POC Glucose 164 H 104 H Cultures: Serology 08/02/18 08/01/18 08/01/18 Range/Units 12:05 09:45 09:10 Urine Creatinine 71 mg/dL Protein/Creatinin Ratio 0.41 H (0.00-0.20) mg/mg Urine Total Protein 29 H (1-14) mg/dL Nasal Screen MRSA (PCR) Negative Negative (Negative) Exam - Constitutional Vitals: Temp Pulse Resp BP Pulse Ox 97.6 F 61 14 108/57 91 08/08/18 06:35 08/08/18 06:35 08/08/18 06:35 08/08/18 06:35 08/08/18 06:35 General appearance: cooperative, morbidly obese, no acute distress - Head Head exam: Present: atraumatic, normal inspection, normocephalic - Eye Eye exam: Present: EOMI, normal appearance, PERRL Pupils: Present: normal accommodation - ENT ENT exam: Present: mucous membranes moist - Neck Neck exam: Present: normal inspection - Respiratory Respiratory exam: Present: CTAB. Absent: rales, respiratory distress, rhonchi, wheezes - Cardiovascular Cardiovascular exam: Present: RRR, +S1, +S2 - GI/Abdominal GI/Abdominal exam: Present: distended (obese), normal bowel sounds, soft. Absent: tenderness Additional comments: Steel catheter noted to be draining clear yellow urine. - Extremities Exam Extremities exam: Present: pedal edema (Trace BLE). Absent: joint swelling, normal inspection (Venous stasis dermatitis noted to the BLE.), tenderness Additional comments: Dressing the RLE remains C/D/I. Erythema receded from previous skin markings. - Neurological Exam Neurological exam: Present: alert, oriented X3, no focal deficits - Psychiatric Psychiatric exam: Present: normal affect, normal mood - Skin Skin exam: Present: dry, intact, normal color, warm - VTE Deep Vein Thrombosis/Pulmonary Embolism Present on Admission: No Consult Discharge Plan - Plan Referrals: Jamila Hernandez CNP [Advanced Practice Nurse] - 08/24/18 9:20 am Jamila Betts CNP [Primary Care Provider] - Prescriptions: Ampicillin/Sulbactam [Unasyn] 3,000 mg IVPB Q6HR 9 Days #9 vial Collagenase Oint [Santyl] 1 appl TP DAILY 10 Days #1 tube Doxycycline 100 mg PO BID 9 Days #18 capsule Fluconazole [Diflucan] 100 mg PO DAILY 1 Days #1 tablet Gentamicin Oint [Garamycin] 1 appl TP DAILY 10 Days #1 tube Nystatin POWDER [Nystop] 1 appl TP TID 10 Days #1 bottle - Attending Attestation I examined this patient and my medical decision-making was reviewed with the Resident Physician. I agree with the documented findings, disposition and treatment plan as described except to the extent set forth below.
[2018-08-08 14:57] VITALS: BP 124/74
== END 2018-08-08 18:41 | DRG 698 ==
LOC: 3ANU 10:05 → EMEROOARM 10:05 → 3ANU 15:24 → SUATTDRO 17:38
PROVIDERS: ADMIT Student in an Organized Health Care Education/Training Program; ATTEND Internal Medicine